=== PATIENT | male | born 1940 | race Caucasian/White ===

== ENCOUNTER 2022-12-13 11:10 | Inpatient (IN) | payer MEDICARE, BC, SELFPAY ==
[2022-12-13] VITALS (10 sets, daily range): BP systolic 92–113; BP diastolic 46–73; PULSE 62–82; RESP 18–20; TEMP 36.8–38.7; O2SAT 94–98; BMI 24.4
--- NOTE | 2022-12-13 11:49 | CRLHL7_ITS ---
For Patients: As a result of the Cures Act, medical imaging exams and procedure reports are released immediately into your electronic medical record. You may view this report before your referring provider. If you have questions, please contact your health care provider. Indication: PAIN AND SWELLING Technique: Right knee 3 views Comparison: None Findings: Prepatellar soft tissue swelling noted. No joint effusion. No fracture. Vascular calcifications. Mild degenerative changes. Impression: Prepatellar soft tissue swelling possibly representing bursitis. No fracture. No synovitis. Dictated by Michael Ascencio MD @ 12/13/2022 12:35:23 PM (Electronically Signed)
--- NOTE | 2022-12-13 11:50 | ED_ITS ---
HPI - General Adult General Chief complaint: Skin/Abscess/Foreign Body Stated complaint: right knee pain Time Seen by Provider: 12/13/22 11:38 Source: patient and family Mode of arrival: ambulatory Limitations: no limitations History of Present Illness HPI narrative: Michell 82-year-old male coming in today complaining of knee pain. He states that he bumped his knee several weeks ago and cut the skin. Has been healing appropriately, however, on Tuesday which is 3 days ago he started noticing increasing pain swelling and redness of the knee. He states that every now and then he gets the chills but he denies any fevers. No vomiting or changes in his appetite. No weakness. He denies pain inside the knee joint. He has been walking without significant difficulty. He denies pain in other joints. No immuno compromising medications. He is not on any blood thinners. Related Data Home Medications Medication Instructions Recorded Confirmed atorvastatin 20 mg tablet 20 mg PO QDAY 02/18/22 02/18/22 loperamide 2 mg capsule 2 mg PO Q6H PRN 02/18/22 02/18/22 losartan 25 mg tablet 25 mg PO QDAY 02/18/22 02/18/22 mometasone 50 mcg/actuation nasal 2 spray intranasal QDAY PRN 02/18/22 02/18/22 spray omeprazole 40 mg capsule,delayed 40 mg PO DAILY 02/18/22 02/18/22 release Allergies Allergy/AdvReac Type Severity Reaction Status Date / Time Penicillins Allergy HIVES Verified 02/18/22 16:06 iodine AdvReac Verified 02/18/22 16:06 Animal dander AdvReac Unknown Uncoded 02/18/22 16:06 [place] blue FCF AdvReac Unknown Uncoded 02/18/22 16:06 Review of Systems Status of ROS: Reports: 10 or more systems reviewed and unremarkable except as noted in History and below [facility] Surgical History History of repair of rotator cuff ?Z98.890 - Other specified postprocedural states (ICD-10) S/P atrial septal defect closure ?Z87.74 - Personal history of (corrected) congenital malformations of heart and circulatory system (ICD-10) History of inguinal hernia repair ?Z98.890 - Other specified postprocedural states (ICD-10) ?Z87.19 - Personal history of other diseases of the digestive system (ICD-10) Social History Smoking Status: Never smoker Do you use any of these nicotine containing products: None Second hand tobacco smoke exposure: No How often do you have a drink containing alcohol: never How often do you have six or more drinks on one occasion: Never AUDIT-C Alcohol total score: 0 Non-prescribed substance use: denies use service: No Exam Narrative: Exam Narrative: Well-nourished well-developed patient in no acute distress. Alert and oriented. Answers questions appropriately. Mood and affect are appropriate. Thoughts are goal oriented and rational. No tangential or magical thinking noted. Patient speaks in full sentences without needing to catch his breath. He does not appear ill or toxic. HEENT: Normocephalic atraumatic. Pupils are equally round reactive to light. Extraocular muscles are intact. Conjunctivae are moist without any icterus noted. Moist mucous membranes. Extremities: Bilateral lower extremities are without pitting edema. Normal DP and PT pulses. Red knee is erythematous and swollen. Does not appear to have a joint effusion. He has good range of motion with flexion extension of that same knee without significant discomfort. The skin is firm, erythematous and indurated consistent with cellulitis. He has a small scab in the center of the knees over the patella. Skin: Well perfused. Const: Vital Signs, click to edit/add: Vital Signs - 24 hr 12/13/22 11:17 12/13/22 13:12 12/13/22 13:13 Temperature 98.2 F Pulse Rate 70 Pulse Rate [Pulse Oximeter] 82 Respiratory Rate 20 Blood Pressure [Ri ght Upper Arm] 109/54 L 92/47 L Pulse Oximetry 97 96 Oxygen Delivery Me thod Room Air Course Course Hospital Course: Labs were drawn, knee x-ray was ordered. Differential diagnosis at this time include cellulitis, anserine bursitis, septic joint. Knee x-ray, read by me, does not show any joint effusion or evidence of osteomyelitis. Labs show slightly elevated white cell count, slightly elevated lactate, elevated CRP, low platelet count. Upon arrival patient's blood pressure was 109 systolic. Because of the slightly abnormal lab works and slightly low blood pressure did go ahead start him on IV fluids and IV Rocephin. Repeat blood pressure was 92/47. Did discuss with the patient what his blood pressures normal look like, he states that they usually 120 systolic at home. He was concerned that this patient is becoming septic given his lab abnormalities and low blood pressure, also given his age, I do recommend admission at this time. Patient in agreement. Vital Signs Vital signs: Initial Vital Signs Temperature 98.2 F 12/13/22 11:17 Temperature Source Temporal Artery Scan 12/13/22 11:17 Pulse Rate 82 12/13/22 11:17 Pulse Rhythm Regular 12/13/22 11:17 Respiratory Rate 20 12/13/22 11:17 Blood Pressure 109/54 L 12/13/22 11:17 Blood Pressure Mean 72 12/13/22 11:17 Blood Pressure Position Supine 12/13/22 11:17 Pulse Oximetry 97 12/13/22 11:17 Oxygen Delivery Method Room Air 12/13/22 11:17 Vital Signs Temperature 98.2 F 12/13/22 11:17 Pulse Rate 82 12/13/22 11:17 Respiratory Rate 20 12/13/22 11:17 Blood Pressure 109/54 L 12/13/22 11:17 Pulse Oximetry 97 12/13/22 11:17 Oxygen Delivery Method Room Air 12/13/22 11:17 Temperature 98.2 F 12/13/22 11:17 Pulse Rate 70 12/13/22 13:12 Respiratory Rate 20 12/13/22 11:17 Blood Pressure 92/47 L 12/13/22 13:13 Pulse Oximetry 96 12/13/22 13:12 Oxygen Delivery Method Room Air 12/13/22 11:17 Medical Decision Making [facility] Narrative Medical decision making narrative: 82-year-old male cellulitis of the right knee. Patient will be admitted for further management. Lab Data Lab results reviewed: Yes I reviewed the patient's lab results Labs: Lab Results 12/13/22 Range/Units 12:15 WBC 13.38 H (4.50-11.00) K/uL RBC 4.29 L (4.30-5.90) m/uL Hgb 12.8 L (13.5-17.5) gm/dL Hct 39.6 (37.0-53.0) % MCV 92 (80-100) fL MCH 30 (26-34) pg MCHC 32 (32-36) gm/dL RDW Coeff of [place] 12.8 (11.5-15.5) % Plt Count 129 L (140-440) K/uL Neut % (Auto) 85.9 H (42.0-72.0) % Lymph % (Auto) 5.5 L (20-44) % [place] % (Auto) 8.0 (0.0-11.0) % Eos % (Auto) 0.2 (0.0-7.0) % Baso % (Auto) 0.2 (0.0-3.0) % Neut # (Auto) 11.50 H (1.7-7.0) K/uL Lymph # (Auto) 0.70 L (0.90-2.90) K/uL [place] # (Auto) 1.10 H (0.00-0.90) K/UL Eos # (Auto) 0.00 (0.00-0.50) K/uL Baso # (Auto) 0.00 (0.00-0.30) K/uL Sodium 135 (135-149) mmol/L Potassium 3.5 L (3.6-5.1) mmol/L Chloride 99 (96-114) mmol/L Carbon Dioxide 26 (20-32) mmol/L BUN 16 (7-30) mg/dL Creatinine 1.0 (0.5-1.5) mg/dL Estimated Creat Clear 57.79 Estimated GFR 75 ml/min Glucose 146 H (60-115) mg/dL Lactate 2.2 H (0.5-1.9) mmol/L Calcium 8.4 (8.4-10.6) mg/dL Total Bilirubin 1.2 (0.1-1.5) mg/dL Direct Bilirubin 0.1 (0.0-0.5) mg/dL AST 24 (12-35) U/L ALT 21 (4-50) U/L Alkaline Phosphatase 53 (40-150) U/L C-Reactive Protein 6.5 H (0.5-1.0) mg/dL Total Protein 6.8 (6.0-8.3) g/dL Albumin 3.9 (3.3-5.0) g/dL Imaging Data X-ray knee: Attestation: I have reviewed the pertinent imaging results. Radiologist's impression: Right knee 3 views Comparison: None Findings: Prepatellar soft tissue swelling noted. No joint effusion. No fracture. Vascular calcifications. Mild degenerative changes. Impression: Prepatellar soft tissue swelling possibly representing bursitis. No fracture. No synovitis. Discharge Plan Discharge Clinical Impression: Cellulitis Patient Disposition: Admitted As Inpatient Condition: Stable Prescriptions: No Action omeprazole 40 mg capsule,delayed release(DR/EC) 40 mg PO DAILY losartan 25 mg tablet 25 mg PO QDAY mometasone 50 mcg/actuation spray,non-aerosol 2 spray intranasal QDAY PRN Rx Instructions: administer into each nostril loperamide 2 mg capsule 2 mg PO Q6H PRN atorvastatin 20 mg tablet 20 mg PO QDAY Follow Up/Referrals: Renate Feliciano MD [Primary Care Provider] -
[2022-12-13 12:20] LABS: Lactate* 2.2 mmol/L (0.5-1.9)
[2022-12-13 12:22] LABS: Basophils Percent Auto 0.2 % (0.0-3.0); Eosinophils Percent Auto 0.2 % (0.0-7.0); Hematocrit 39.6 % (37.0-53.0); Hemoglobin* 12.8 gm/dL (13.5-17.5); Immature Granulocytes Pct Auto 0.2 %; Lymphocytes Percent Auto 5.5 % (20-44); Mean Corpuscular HGB Conc 32 gm/dL (32-36); Mean Corpuscular Hemoglobin 30 pg (26-34); Mean Corpuscular Volume 92 fL (80-100); Neutrophils Percent Auto 85.9 % (42.0-72.0); Platelet Count* 129 K/uL (140-440); RDW Coefficient of Variation % 12.8 % (11.5-15.5); Red Blood Count 4.29 m/uL (4.30-5.90); White Blood Count* 13.38 K/uL (4.50-11.00)
[2022-12-13 12:26] LABS: Slide Review Reflex No
[2022-12-13 12:46] LABS: Albumin* 3.9 g/dL (3.3-5.0)
[2022-12-13 12:47] LABS: Chloride* 99 mmol/L (96-114); Potassium* 3.5 mmol/L (3.6-5.1); Sodium* 135 mmol/L (135-149)
[2022-12-13 12:49] LABS: Est. Creatinine Clearance* 57.79; Estimated Glomerular Filt Rate 75 ml/min
[2022-12-13 12:50] LABS: Alanine Aminotransferase* 21 U/L (4-50); Alkaline Phosphatase* 53 U/L (40-150); Aspartate Amino Transferase* 24 U/L (12-35); Bilirubin Direct* 0.1 mg/dL (0.0-0.5); Bilirubin Total* 1.2 mg/dL (0.1-1.5); Blood Urea Nitrogen* 16 mg/dL (7-30); Calcium* 8.4 mg/dL (8.4-10.6); Carbon Dioxide* 26 mmol/L (20-32); Glucose* 146 mg/dL (60-115); Total Protein* 6.8 g/dL (6.0-8.3)
[2022-12-13] MEDS: 0.9 % SODIUM CHLORIDE 1000 ml 1,000 ML IV ×2 (13:04→17:18)
[2022-12-13] MEDS: cefTRIAXone 1 GM in 0.9 % SODIUM CHLORIDE Mini-bag 100 ML IVPB (13:04)
[2022-12-13 13:28] LABS: C Reactive Protein* 6.5 mg/dL (0.5-1.0)
[2022-12-13] MEDS: BUPIVACAINE 0.25% 30 ML INJECTION (14:05)
--- NOTE | 2022-12-13 14:54 | P.IMHP_ITS ---
Hospitalist- H&P: HPI History of Present Illness Time Seen by Provider: 13:30 Date Seen: 12/13/22 Chief complaint: right knee pain Narrative: Salazar Noel is a 82 year old man presents to the emergency department for further assessment of right knee pain. Roughly 4 weeks ago he was working outdoors, cutting down brush, standing in stream, when he bumped his right knee into some brush. Sustained a cut with some bleeding. Cleaned it off. It stopped bleeding. He did not think much of it. Three days ago he noticed the onset of right knee pain, swelling, redness. Over the last 2 days he has had chills without fevers or rigors. Able to ambulate pending as knees without discomfort. Denies weakness, somnolence, change in thinking patterns. In the emergency department he is found to have relatively low blood pressure was systolic blood pressure of 90 mmHg. This is unusual for him. Usual systolic blood pressures run 120-140. On assessment he is thought to have a cellulitis involving the right knee, prepatellar area. Blood cultures obtained. White blood cell elevated at 13.4. Platelets 129. Lactate elevated at 2.2. He is referred to the hospitalist for admission to the hospital. Review of Systems Status of ROS: Reports: 10 or more systems reviewed and unremarkable except as noted in History and below Narrative: Denies fevers, rigors, diaphoresis. Acknowledges a sense of chills last couple of days. Denies other myalgias arthralgias. No other recent trauma or injury. No other recent travel. Denies chest heaviness, pressure, tightness, or pain. Denies dyspnea at rest, dyspnea with exertion, paroxysmal nocturnal dyspnea, orthopnea. Denies syncope or near-syncope. Denies lightheadedness, orthostasis, vertigo, dizziness. Denies nausea or vomiting. Bowel and bladder habits are satisfactory. [facility] Medical History (Updated 12/13/22 @ 15:08 by Isaiah Yin MD) Asthma ?J45.909 - Unspecified asthma, uncomplicated (ICD-10) Erectile dysfunction ?N52.9 - Male erectile dysfunction, unspecified (ICD-10) Trochanteric bursitis of left hip ?M70.62 - Trochanteric bursitis, left hip (ICD-10) Gastroesophageal reflux disease ?K21.9 - Gastro-esophageal reflux disease without esophagitis (ICD-10) Prediabetes ?R73.03 - Prediabetes (ICD-10) History of prostate cancer ?Z85.46 - Personal history of malignant neoplasm of prostate (ICD-10) Vocal cord dysfunction (05/29/12) ?J38.3 - Other diseases of vocal cords (ICD-10) Malignant neoplasm of prostate ?C61 - Malignant neoplasm of prostate (ICD-10) Irritable bowel syndrome ?K58.9 - Irritable bowel syndrome without diarrhea (ICD-10) Hyperlipidemia ?E78.5 - Hyperlipidemia, unspecified (ICD-10) Essential hypertension (05/29/12) ?I10 - Essential (primary) hypertension (ICD-10) 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) ?J31.0 - Chronic rhinitis (ICD-10) ?J32.9 - Chronic sinusitis, unspecified (ICD-10) Chronic cough (05/29/12) ?R05.3 - Chronic cough (ICD-10) Adenomatous polyp of colon ?D12.6 - Benign neoplasm of colon, unspecified (ICD-10) Surgical History History of repair of rotator cuff ?Z98.890 - Other specified postprocedural states (ICD-10) S/P atrial septal defect closure ?Z87.74 - Personal history of (corrected) congenital malformations of heart and circulatory system (ICD-10) History of inguinal hernia repair ?Z98.890 - Other specified postprocedural states (ICD-10) ?Z87.19 - Personal history of other diseases of the digestive system (ICD-10) Social History Smoking Status: Never smoker Do you use any of these nicotine containing products: None Second hand tobacco smoke exposure: No How often do you have a drink containing alcohol: never How often do you have six or more drinks on one occasion: Never AUDIT-C Alcohol total score: 0 Non-prescribed substance use: denies use service: No Meds Home Medications and Allergies Home Medications Medication Instructions Recorded Confirmed Type atorvastatin 20 mg tablet 20 mg PO HS 02/18/22 12/13/22 History omeprazole 40 mg capsule,delayed 40 mg PO DAILY 02/18/22 12/13/22 History release loperamide 2 mg capsule (Imodium 2 mg PO BID PRN 12/13/22 12/13/22 History A-D) losartan 100 1 tab PO DAILY 12/13/22 12/13/22 History mg-hydrochlorothiazide 12.5 mg tablet tamsulosin 0.4 mg capsule 0.4 mg PO QPM 12/13/22 12/13/22 History Allergies Allergy/AdvReac Type Severity Reaction Status Date / Time Penicillins Allergy HIVES Verified 02/18/22 16:06 iodine AdvReac Verified 02/18/22 16:06 Animal dander AdvReac Unknown Uncoded 02/18/22 16:06 [place] blue FCF AdvReac Unknown Uncoded 02/18/22 16:06 Exam Narrative: Exam Narrative: I assessed him in the emergency department while he is laying on exam table. He appears comfortable and in no acute distress. Alert, oriented to self, place, time, situation. Friendly, cooperative, articulate. Thoughtful. Mood and affect are congruent. Vision and hearing are grossly normal. Tympanic membranes are normal. Midline nasal septum. Dentition in fair repair. Moist buccal mucosa. No icterus or conjunctival injection. Pupils equally round and reactive to lig ht and accommodation. Extraocular muscles are intact. Neck is supple. Midline trachea. No adenopathy in the head and neck region. Lungs are clear to auscultation without wheezing, rhonchi, or rales. Chest wall excursions are full. No CVA tenderness. No pain to thumping over the spine in the back. Abdomen with active bowel sounds, soft, nontender. No rebound or guarding. Able to transfer independently. Ambulates independently. Full range of motion of the right and left knee. No focal motor neurologic deficits. Left knee appears normal. Right knee is red, swollen, warm to touch. Has fluctuance in the subpatellar area. Const: Vital Signs, click to edit/add: Vital Signs - 24 hr 12/13/22 11:17 12/13/22 13:12 12/13/22 13:13 Temperature 98.2 F Pulse Rate 70 Pulse Rate [Pulse Oximeter] 82 Respiratory Rate 20 Blood Pressure [Ri ght Upper Arm] 109/54 L 92/47 L Pulse Oximetry 97 96 Oxygen Delivery Me thod Room Air Documenting provider has reviewed patient's vital signs: yes Hospitalist - H&P: Result Labs Labs: Short CBC 12/13/22 Range/Units 12:15 WBC 13.38 H (4.50-11.00) K/uL Hgb 12.8 L (13.5-17.5) gm/dL Hct 39.6 (37.0-53.0) % Plt Count 129 L (140-440) K/uL BMP 12/13/22 12:15 Sodium 135 Potassium 3.5 L Chloride 99 Carbon Dioxide 26 BUN 16 Creatinine 1.0 Glucose 146 H Calcium 8.4 Liver Function 12/13/22 Range/Units 12:15 Total Bilirubin 1.2 (0.1-1.5) mg/dL Direct Bilirubin 0.1 (0.0-0.5) mg/dL AST 24 (12-35) U/L ALT 21 (4-50) U/L Alkaline Phosphatase 53 (40-150) U/L Albumin 3.9 (3.3-5.0) g/dL Imaging Knee x-ray: Attestation: I have reviewed the pertinent imaging results. Radiologist's impression: Prepatellar soft tissue swelling possibly representing bursitis. No fracture. No synovitis. Assessment and Plan Assessment and plan (1) Sepsis associated hypotension: Status: Acute (2) Cellulitis: Problem comment: Right knee Status: Acute (3) Knee bursitis: Problem comment: right knee Status: Acute Plan 1. Reviewed with patient and . 2. Recommended admission to the hospital. 3. IV fluids. Monitor lactate. 4. Blood cultures obtained. Synovial fluid culture obtained from right knee subpatellar area. Will start on cefazolin 2 g IV q.8 for now. Consider broadening antibiotic coverage by adding vancomycin if spikes through. Otherwise await results of cultures. 5. Analgesics p.r.n. 6. Consider orthopedic surgery consultation. 7. Continue with other supportive efforts. 8. Hold anti hypertensive medications for now. 9. Monitor labs including inflammatory markers. 10. Venous thromboembolism prophylaxis. 11. Patient and agreeable to above stated plans and recommendations. Procedures Bursa Procedures Site of procedure: prepatellar bursa XRAY obtained: normal Antisepsis used: Chlorhexidine Local anesthetic used: bupivacaine 0.25% Amount of anesthesia used (ml): 1 Fluid obtained (ml): 1 Fluid type: clear and bloody Patient tolerated procedure: well and no complications Complications: none Additional comments: After obtaining verbal consent from the patient and his , I proceeded with the procedure. Areas prepped in usual sterile fashion. After achieving local anesthesia by injection with 1 mL of 0.25% bupivacaine, I use a 10 mL syringe with an 16 gauge needle and aspirate 0.25 mL of the viscus blood-tinged fluid. Unable to aspirate any more. This is submitted to our laboratory for culture.
[2022-12-13] MEDS: CEFAZOLIN 2 GM in 0.9 % SODIUM CHLORIDE Mini-bag 100 ML IVPB (15:55)
[2022-12-13] MEDS: ACETAMINOPHEN 325 MG TABLET 650 MG PO (18:39)
[2022-12-13] MEDS: 0.9 % SODIUM CHLORIDE 1000 ml 1,000 ML 125 ML IV (18:42)
--- NOTE | 2022-12-13 18:50 | W.PM.CROSSCO ---
Subjective Subjective Interval history: patient febrile; will check lactate and start vancomycin
--- NOTE | 2022-12-13 19:02 | PC.NURSE ---
Pt was admitted this afternoon to the unit due to R knee pain, erythema, and warmth. Pt reports a 2/10 pain in knee w/ movement and activity. SBA to bathroom. VS on RA, mild fever of 99.1. Ancef and 1000 ml/hr bolus ran per orders. Normal saline now running at 125ml/hr. @1830 VS were rechecked 101.[address] Ribeiro notifed, and he ordered Vanco which is awaiting verification from pharmacy, well as a repeat stat lactate. Calls appropriately.
[2022-12-13] MEDS: ENOXAPARIN 40 MG/0.4 ML INJ SUBCUT (21:07)
[2022-12-13] MEDS: SODIUM CHLORIDE 0.9 % (FLUSH) 10 ML SYRINGE 5 ML IVF (21:07)
[2022-12-13] MEDS: ATORVASTATIN 10 MG TABLET 20 MG PO (21:08)
[2022-12-13] MEDS: SODIUM CHLORIDE NASAL SPRAY 1 SPRAY NOSTRIL-B (22:06)
[2022-12-14] VITALS (11 sets, daily range): BP systolic 93–116; BP diastolic 49–66; PULSE 57–71; RESP 18–22; TEMP 36.7–38.3; O2SAT 94–96
[2022-12-14] MEDS: ALBUMIN HUMAN 25% 25 GM/100 ML VIAL IVPB ×2 (00:40→16:52)
[2022-12-14] MEDS: 0.9 % SODIUM CHLORIDE 1000 ml 1,000 ML IV ×2 (02:11→15:45)
[2022-12-14] MEDS: CEFAZOLIN 2 GM in 0.9 % SODIUM CHLORIDE Mini-bag 100 ML IVPB ×3 (03:57→19:48)
[2022-12-14] MEDS: ACETAMINOPHEN 325 MG TABLET 650 MG PO ×2 (04:06→16:55)
[2022-12-14] MEDS: OMEPRAZOLE 20 MG CAPSULE DR 40 MG PO (06:32)
--- NOTE | 2022-12-14 06:48 | PC.NURSE ---
Pt is pleasant and cooperative. VSS at this time after get albumin and a 1000cc bolus. He did run a low grade temp around 3. T-100.6 Tylenol given and temp done to 98.6 at this time. He is up I. Left leg is red swollen and hot to the touch. He states minimal pain at this time.
[2022-12-14 07:14] LABS: Lactate* 0.9 mmol/L (0.5-1.9)
[2022-12-14 07:19] LABS: Basophils Absolute Auto 0.04 K/uL (0.00-0.30); Basophils Percent Auto 0.5 % (0.0-3.0); Eosinophils Percent Auto 2.3 % (0.0-7.0); Hematocrit 32.4 % (37.0-53.0); Hemoglobin* 10.6 gm/dL (13.5-17.5); Immature Granulocytes Abs Auto 0.02 K/uL (0.00-0.30); Immature Granulocytes Pct Auto 0.2 %; Lymphocytes Percent Auto 13.1 % (20-44); Mean Corpuscular HGB Conc 33 gm/dL (32-36); Mean Corpuscular Hemoglobin 31 pg (26-34); Mean Corpuscular Volume 94 fL (80-100); Monocytes Percent Auto 10.5 % (0.0-11.0); Neutrophils Percent Auto 73.4 % (42.0-72.0); Platelet Count* 115 K/uL (140-440); RDW Coefficient of Variation % 13.1 % (11.5-15.5); Red Blood Count 3.44 m/uL (4.30-5.90); White Blood Count* 8.56 K/uL (4.50-11.00)
[2022-12-14 07:36] LABS: Slide Review Reflex No
[2022-12-14 07:59] LABS: Chloride* 106 mmol/L (96-114); Potassium* 3.9 mmol/L (3.6-5.1); Sodium* 138 mmol/L (135-149)
[2022-12-14 08:01] LABS: Creatinine* 0.9 mg/dL (0.5-1.5); Est. Creatinine Clearance* 57.79; Estimated Glomerular Filt Rate 85 ml/min
[2022-12-14 08:02] LABS: Blood Urea Nitrogen* 15 mg/dL (7-30); Carbon Dioxide* 24 mmol/L (20-32); Glucose* 107 mg/dL (60-115)
[2022-12-14 08:03] LABS: Calcium* 7.3 mg/dL (8.4-10.6)
[2022-12-14 08:26] LABS: C Reactive Protein* 16.4 mg/dL (0.5-1.0)
[2022-12-14 08:29] LABS: Erythrocyte SedimentationRate* 16 mm/hr (2-15)
[2022-12-14 11:16] LABS: Hemoglobin* 10.6 gm/dL (13.5-17.5); Mean Corpuscular HGB Conc 32 gm/dL (32-36); Mean Corpuscular Hemoglobin 30 pg (26-34); Mean Corpuscular Volume 94 fL (80-100); Platelet Count* 107 K/uL (140-440); Red Blood Count 3.52 m/uL (4.30-5.90); White Blood Count* 8.84 K/uL (4.50-11.00)
--- NOTE | 2022-12-14 11:16 | PM.IMPN1 ---
Progress Note: A&P Assessment and plan (1) Sepsis associated hypotension: Problem details: anti-HTN meds on hold Status: Acute (2) Knee bursitis: Problem details: right knee. 12/13/2022 sample growing Gram-positive cocci in clusters. Presently on IV cefazolin and IV vancomycin, pending organism identification and sensitivities. Consider orthopedic surgery consultation. Status: Acute (3) Cellulitis: Problem details: Right knee Status: Acute (4) Thrombocytopenia: Problem details: At least in part related to acute infection and right knee Status: Acute (5) Anemia: Status: Acute Plan 1. Reviewed my impression with the patient 2. Continue with IV cefazolin and IV vancomycin pending organism identification and sensitivities. 3. Continue to monitor labs. 4. Answered patient's questions to satisfaction. 5. Consider orthopedic surgery consultation if warranted. Time Spent With Patient Total time spent: 30 minute Subjective Time Seen by Provider: 09:00 Date Seen: 12/14/22 Interval history: Admission date 01/02/2023. Hospital day 2. 82 year old man presented to our emergency department for further assessment of right knee pain.? Roughly 4 weeks ago he was working outdoors, cutting down brush, standing in stream, when he bumped his right knee into some brush.? Sustained a cut with some bleeding.? Cleaned it off.? It stopped bleeding.? He did not think much of it.? Three days ago he noticed the onset of right knee pain, swelling, redness.? Over the last 2 days he has had chills without fevers or rigors.? Able to weightbear, ambulate, and bend his knees without discomfort.? Denies weakness, somnolence, change in thinking patterns. In the emergency department he has unusually low blood pressures for him with systolic blood pressure of 90 mmHg.? Usual systolic blood pressures run 120-140.? On assessment he is? thought to have a cellulitis involving the right knee, prepatellar area.? Blood cultures obtained.? White blood cell elevated at 13.4.? Platelets 129.? Lactate elevated at 2.2.? On my assessment in the emergency department he has fluctuance in the subpatellar region. I am able to aspirate a small amount of fluid from this bursa under aseptic technique and forward it to the lab for culturing. He indicates he has only minimal discomfort in the knee, no different than yesterday. It does not become worse or better with bending his knee or weight-bearing or ambulating. Did spike a fever last night with a T-max of 101.6? F. He is afebrile this morning. Tolerating it IV cefazolin. When he has spiked his fever yesterday we added IV vancomycin to his regimen. Exam Narrative: Exam Narrative: Appears comfortable and in no acute distress. Vision and hearing are grossly normal. Systolic blood pressures are in the 1 teens now, much improved from 90 yesterday. Alert, oriented to self, place, time, situation. Friendly, articulate, cooperative. Mood and affect are congruent. Lungs clear to auscultation. Heart tones with regular rhythm. Abdomen with active bowel sounds, soft, nontender. Independent in transfer, station, gait. Can fully extend his right knee and can bend his right knee without discomfort. Right knee is still warm to touch and erythematous. Less swelling of the knee, with skin markings now visible. Gram stain of organisms growing from the synovial fluid demonstrates gram positive cocci in clusters. ID and sensitivities are pending. Const: Vital Signs, click to edit/add: Vital Signs - 24 hr 12/13/22 11:17 12/13/22 13:12 12/13/22 13:13 Temperature 98.2 F Pulse Rate 70 Pulse Rate [Pulse Oximeter] 82 Pulse Rate [Right Pulse Oximeter] Respiratory Rate 20 Blood Pressure [Le ft Arm] Blood Pressure [Ri ght Upper Arm] 109/54 L 92/47 L Pulse Oximetry 97 96 Oxygen Delivery Me thod Room Air 12/13/22 14:50 12/13/22 16:07 12/13/22 17:00 Temperature 99.4 F Pulse Rate Pulse Rate [Pulse Oximeter] Pulse Rate [Right Pulse Oximeter] 82 Respiratory Rate 18 18 Blood Pressure [Le ft Arm] 106/73 Blood Pressure [Ri ght Upper Arm] Pulse Oximetry 98 Oxygen Delivery Me thod Room Air Room Air Room Air 12/13/22 18:27 12/13/22 18:39 12/13/22 19:00 Temperature 101.6 F H 101.6 F H 99.7 F H Pulse Rate Pulse Rate [Pulse Oximeter] Pulse Rate [Right Pulse Oximeter] 71 64 Respiratory Rate 18 18 Blood Pressure [Le ft Arm] 113/52 L 99/46 L Blood Pressure [Ri ght Upper Arm] Pulse Oximetry 94 95 Oxygen Delivery Me thod Room Air Room Air 12/13/22 21:09 12/13/22 23:45 12/13/22 23:45 Temperature 99.6 F 99.8 F H Pulse Rate Pulse Rate [Pulse Oximeter] Pulse Rate [Right Pulse Oximeter] 62 Respiratory Rate 18 18 Blood Pressure [Le ft Arm] 106/56 L Blood Pressure [Ri ght Upper Arm] Pulse Oximetry 95 95 Oxygen Delivery Me thod Room Air Room Air 12/14/22 04:06 12/14/22 04:20 12/14/22 06:33 Temperature 100.6 F H 100.6 F H 98.6 F Pulse Rate Pulse Rate [Pulse Oximeter] Pulse Rate [Right Pulse Oximeter] 65 Respiratory Rate 18 Blood Pressure [Le ft Arm] 114/58 L Blood Pressure [Ri ght Upper Arm] Pulse Oximetry 94 Oxygen Delivery La thod Room Air 12/14/22 07:45 12/14/22 07:45 12/14/22 07:45 Temperature 98.3 F Pulse Rate Pulse Rate [Pulse Oximeter] Pulse Rate [Right Pulse Oximeter] 71 71 Respiratory Rate 18 18 18 Blood Pressure [Le ft Arm] 116/53 L Blood Pressure [Ri ght Upper Arm] Pulse Oximetry 94 94 Oxygen Delivery Me thod Room Air Room Air Documenting provider has reviewed patient's vital signs: yes Labs Labs: Laboratory Results - last 24 hr 12/13/22 12/13/22 12/14/22 12:15 18:56 05:54 WBC 13.38 H 8.56 RBC 4.29 L 3.44 L Hgb 12.8 L 10.6 L Hct 39.6 32.4 L MCV 92 94 MCH 30 31 MCHC 32 33 RDW Coeff of Denisse 12.8 13.1 Plt Count 129 L 115 L Neut % (Auto) 85.9 H 73.4 H Lymph % (Auto) 5.5 L 13.1 L Winston % (Auto) 8.0 10.5 Eos % (Auto) 0.2 2.3 Baso % (Auto) 0.2 0.5 Neut # (Auto) 11.50 H 6.30 Lymph # (Auto) 0.70 L 1.10 Winston # (Auto) 1.10 H 0.90 Eos # (Auto) 0.00 0.20 Baso # (Auto) 0.00 0.04 ESR 16 H Sodium 135 138 Potassium 3.5 L 3.9 Chloride 99 106 Carbon Dioxide 26 24 BUN 16 15 Creatinine 1.0 0.9 Estimated Creat Clear 57.79 57.79 Estimated GFR 75 85 Glucose 146 H 107 Lactate 2.2 H 0.9 Calcium 8.4 7.3 L Total Bilirubin 1.2 Direct Bilirubin 0.1 AST 24 ALT 21 Alkaline Phosphatase 53 Lactate Baseline 1.0 C-Reactive Protein 6.5 H 16.4 H Total Protein 6.8 Albumin 3.9
[2022-12-14 11:20] LABS: Slide Review Reflex No
[2022-12-14 11:55] LABS: C Reactive Protein* 17.6 mg/dL (0.5-1.0)
[2022-12-14] MEDS: guaiFENesin 100 MG/ML CUP PO (18:12)
--- NOTE | 2022-12-14 18:46 | PC.NURSE ---
PATIENT HAD BEEN AFEBRILE AND VITALLY STABLE ON DAY SHIFT BUT AT 1530, BP NOTED TO BE 93/47. PATIENT DENIED FEELING DIZZY OR LIGHTHEADED. DR. BAKER UPDATED AND ORDER GIVEN FOR NORMAL SALINE 1L BOLUS FOLLOW BY ALBUMIN. PATIENT TOLERATED WELL AND BP DID INCREASE TO 116/49. AT 1745, PATIENT REPORTED FEELING COLD AND TEMP CHECK AT THAT TIME WAS 100.9. TYLENOL ADMINISTERED AND TEMP CURRENTLY 99.9. BP AT 1810 WAS 105/63. PATIENT'S KNEE CONTINUES TO BE REDDENED AND HOT TO TOUCH. AREA OUTLINED. REPORTS NO PAIN TO KNEE AT REST.
[2022-12-14] MEDS: ENOXAPARIN 40 MG/0.4 ML INJ SUBCUT (20:45)
[2022-12-14] MEDS: TAMSULOSIN HCL 0.4 MG CAPSULE PO (20:45)
[2022-12-14] MEDS: ATORVASTATIN 10 MG TABLET 20 MG PO (20:45)
[2022-12-14] MEDS: SODIUM CHLORIDE 0.9 % (FLUSH) 10 ML SYRINGE 5 ML IVF (20:46)
[2022-12-15] VITALS (26 sets, daily range): BP systolic 90–143; BP diastolic 51–88; PULSE 51–75; RESP 14–20; TEMP 35.7–37.4; O2SAT 91–99
[2022-12-15] MEDS: CEFAZOLIN 2 GM in 0.9 % SODIUM CHLORIDE Mini-bag 100 ML IVPB ×2 (04:00→19:23)
[2022-12-15] MEDS: SODIUM CHLORIDE NASAL SPRAY 1 SPRAY NOSTRIL-B (04:05)
[2022-12-15] MEDS: OMEPRAZOLE 20 MG CAPSULE DR 40 MG PO (06:29)
--- NOTE | 2022-12-15 06:52 | PC.NURSE ---
Pleasant and cooperative. Up independantly in his room. He is saline locked, Encouraged drink more as urine was concentrated. Minimal pain per pt. Slightly less swelling noted left knee. Decreased warmth and redness.
[2022-12-15] MEDS: LACTATED RINGERS 1000 ML 1,000 ML 125 ML IV (11:18)
[2022-12-15] MEDS: SODIUM CHLORIDE 0.9 % (FLUSH) 10 ML SYRINGE 5 ML IVF ×2 (11:18→20:48)
[2022-12-15 11:29] LABS: Hematocrit 34.1 % (37.0-53.0); Hemoglobin* 10.8 gm/dL (13.5-17.5); Mean Corpuscular HGB Conc 32 gm/dL (32-36); Mean Corpuscular Hemoglobin 30 pg (26-34); Mean Corpuscular Volume 95 fL (80-100); Platelet Count* 113 K/uL (140-440); Red Blood Count 3.61 m/uL (4.30-5.90); Slide Review Reflex No
[2022-12-15 12:19] LABS: C Reactive Protein* 15.4 mg/dL (0.5-1.0)
[2022-12-15] MEDS: LACTATED RINGERS 1000 ML 1,000 ML 35 ML IV (12:19)
--- NOTE | 2022-12-15 12:20 | PM.ORCN ---
History of Present Illness HPI Date Seen: 12/15/22 Requesting physician: Isaiah Yin Chief complaint: right knee pain Narrative: The patient is an 82-year-old gentleman who bumped his knee about a month ago while standing in a stream, helping his neighbor clear brush. This injury broke the skin, but was not concerning to him. However, on Tuesday this week the front of his knee became swollen and painful. He was admitted for septic prepatellar bursitis. This has improved on IV antibiotics. He has never injured this knee or had surgery on it previously. He does not have diabetes or smoke cigarettes. Review of Systems Narrative: The patient denies: Fever, night sweats, shaking chills, nausea, vomiting, diarrhea, chest pain, chest pressure, shortness of breath, no rash, no change in hearing or vision, no issues with bleeding or clotting [facility] Medical History Asthma ?J45.909 - Unspecified asthma, uncomplicated (ICD-10) Erectile dysfunction ?N52.9 - Male erectile dysfunction, unspecified (ICD-10) Trochanteric bursitis of left hip ?M70.62 - Trochanteric bursitis, left hip (ICD-10) Gastroesophageal reflux disease ?K21.9 - Gastro-esophageal reflux disease without esophagitis (ICD-10) Prediabetes ?R73.03 - Prediabetes (ICD-10) History of prostate cancer ?Z85.46 - Personal history of malignant neoplasm of prostate (ICD-10) Vocal cord dysfunction (05/29/12) ?J38.3 - Other diseases of vocal cords (ICD-10) Malignant neoplasm of prostate ?C61 - Malignant neoplasm of prostate (ICD-10) Irritable bowel syndrome ?K58.9 - Irritable bowel syndrome without diarrhea (ICD-10) Hyperlipidemia ?E78.5 - Hyperlipidemia, unspecified (ICD-10) Essential hypertension (05/29/12) ?I10 - Essential (primary) hypertension (ICD-10) 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) ?J31.0 - Chronic rhinitis (ICD-10) ?J32.9 - Chronic sinusitis, unspecified (ICD-10) Chronic cough (05/29/12) ?R05.3 - Chronic cough (ICD-10) Adenomatous polyp of colon ?D12.6 - Benign neoplasm of colon, unspecified (ICD-10) Surgical History History of repair of rotator cuff ?Z98.890 - Other specified postprocedural states (ICD-10) S/P atrial septal defect closure ?Z87.74 - Personal history of (corrected) congenital malformations of heart and circulatory system (ICD-10) History of inguinal hernia repair ?Z98.890 - Other specified postprocedural states (ICD-10) ?Z87.19 - Personal history of other diseases of the digestive system (ICD-10) Family History Brother Myocardial infarction Brother Myocardial infarction Sister Asthma Social History What is your current living situation?: I presently have a place to live Problems where you live: no known problems Problems where you live details: Pt states no In the past 12 months, utilities in danger of being shut off: no In the past 12 mos, have been you worried that your food would run out before you had money to buy more?: never true In the past 12 mos, the food you bought just didn't last and you didn't have money to buy more?: never true Highest level of school completed/degree received: Bachelor's degree Smoking Status: Never smoker Do you use any of these nicotine containing products: None Second hand tobacco smoke exposure: No How often do you have a drink containing alcohol: never How often do you have six or more drinks on one occasion: Never AUDIT-C Alcohol total score: 0 Non-prescribed substance use: denies use Non-prescribed substance use details: None Caffeine: Yes (1 cup coffee a day) How often does anyone, including family, friends and others, physically hurt you: never How often does anyone, including family, friends and others, insult or talk down to you: never How often does anyone, including family, friends and others, threaten you with harm: never How often does anyone, including family, friends and others, scream or curse at you: never service: No Meds Home Medications and Allergies Home Medications Medication Instructions Recorded Confirmed Type atorvastatin 20 mg tablet 20 mg PO HS 02/18/22 12/13/22 History omeprazole 40 mg capsule,delayed 40 mg PO DAILY 02/18/22 12/13/22 History release loperamide 2 mg capsule (Imodium 2 mg PO BID PRN 12/13/22 12/13/22 History A-D) losartan 100 1 tab PO DAILY 12/13/22 12/13/22 History mg-hydrochlorothiazide 12.5 mg tablet tamsulosin 0.4 mg capsule 0.4 mg PO QPM 12/13/22 12/13/22 History Allergies Allergy/AdvReac Type Severity Reaction Status Date / Time Penicillins Allergy HIVES Verified 02/18/22 16:06 iodine AdvReac Verified 02/18/22 16:06 Animal dander AdvReac Unknown Uncoded 02/18/22 16:06 [place] blue FCF AdvReac Unknown Uncoded 02/18/22 16:06 Ortho Exam Narrative Exam Narrative: The patient is examined upright in his hospital bed. The right knee shows the prepatellar bursa is swollen, erythematous and tender. There is a healed puncture site over the center of the bursa, without drainage. The entire leg is warm to touch. Knee range of motion is from 0-90 degrees. CMS to the foot is normal. Const Vital Signs, click to edit/add: Vital Signs - 24 hr 12/14/22 15:30 12/14/22 15:30 12/14/22 15:30 Temperature 98.1 F Pulse Rate [Right Pulse Oximeter] 66 66 Respiratory Rate 18 18 18 Blood Pressure [Left Arm] 93/66 Pulse Oximetry 96 96 Oxygen Delivery Method Room Air Room Air 12/14/22 16:45 12/14/22 16:55 12/14/22 18:10 Temperature 100.9 F H 100.9 F H 99.9 F H Pulse Rate [Right Pulse Oximeter] 66 69 Respiratory Rate 18 18 Blood Pressure [Left Arm] 116/49 L 105/63 Pulse Oximetry 96 96 Oxygen Delivery Method Room Air Room Air 12/14/22 18:26 12/14/22 19:00 12/15/22 00:01 Temperature 99.9 F H 99.4 F 99.4 F Pulse Rate [Right Pulse Oximeter] 67 69 Respiratory Rate 22 18 Blood Pressure [Left Arm] 109/50 L 121/64 Pulse Oximetry 94 92 Oxygen Delivery Method Room Air Room Air 12/15/22 00:45 12/15/22 04:07 12/15/22 07:00 Temperature 99.4 F Pulse Rate [Right Pulse Oximeter] 68 Respiratory Rate 20 Blood Pressure [Left Arm] 120/61 Pulse Oximetry 92 94 97 Oxygen Delivery Method Room Air Room Air Room Air 12/15/22 07:00 12/15/22 07:56 Temperature 97.4 F L Pulse Rate [Right Pulse Oximeter] 72 72 Respiratory Rate 20 20 Blood Pressure [Left Arm] 104/82 Pulse Oximetry 97 Oxygen Delivery Method Room Air Results Labs Labs: Laboratory Results - last 48 hr 12/13/22 12/13/22 12/14/22 12:15 18:56 05:54 WBC 13.38 H 8.56 RBC 4.29 L 3.44 L Hgb 12.8 L 10.6 L Hct 39.6 32.4 L MCV 92 94 MCH 30 31 MCHC 32 33 RDW Coeff of Denisse 12.8 13.1 Plt Count 129 L 115 L Neut % (Auto) 85.9 H 73.4 H Lymph % (Auto) 5.5 L 13.1 L Dawson % (Auto) 8.0 10.5 Eos % (Auto) 0.2 2.3 Baso % (Auto) 0.2 0.5 Neut # (Auto) 11.50 H 6.30 Lymph # (Auto) 0.70 L 1.10 Dawson # (Auto) 1.10 H 0.90 Eos # (Auto) 0.00 0.20 Baso # (Auto) 0.00 0.04 ESR 16 H Sodium 135 138 Potassium 3.5 L 3.9 Chloride 99 106 Carbon Dioxide 26 24 BUN 16 15 Creatinine 1.0 0.9 Estimated Creat Clear 57.79 57.79 Estimated GFR 75 85 Glucose 146 H 107 Lactate 2.2 H 0.9 Calcium 8.4 7.3 L Total Bilirubin 1.2 Direct Bilirubin 0.1 AST 24 ALT 21 Alkaline Phosphatase 53 Lactate Baseline 1.0 C-Reactive Protein 6.5 H 16.4 H Total Protein 6.8 Albumin 3.9 12/14/22 12/15/22 11:11 11:20 WBC 8.84 10.70 RBC 3.52 L 3.61 L Hgb 10.6 L 10.8 L Hct 33.0 L 34.1 L MCV 94 95 MCH 30 30 MCHC 32 32 RDW Coeff of Denisse Plt Count 107 L 113 L Neut % (Auto) Lymph % (Auto) Dawson % (Auto) Eos % (Auto) Baso % (Auto) Neut # (Auto) Lymph # (Auto) Dawson # (Auto) Eos # (Auto) Baso # (Auto) ESR Sodium Potassium Chloride Carbon Dioxide BUN Creatinine Estimated Creat Clear Estimated GFR Glucose Lactate Calcium Total Bilirubin Direct Bilirubin AST ALT Alkaline Phosphatase Lactate Baseline C-Reactive Protein 17.6 H 15.4 H Total Protein Albumin Diagnostic results Additional Comments: AP, lateral and a single patellofemoral axial view of the right knee show prepatellar soft tissue swelling. There is no significant degenerative change. There is no obvious fracture or retained foreign body. Assessment and Plan Assessment and plan (1) Sepsis associated hypotension: Problem comment: anti-HTN meds on hold Status: Acute Total time spent: Total time spent is greater than 50% in coordination of care (as documented) at patient's floor/unit and/or counseling patient: (2) Knee bursitis: Problem comment: right knee. 12/13/2022 sample growing Gram-positive cocci in clusters. Presently on IV cefazolin and IV vancomycin, pending organism identification and sensitivities. Consider orthopedic surgery consultation. Status: Acute Total time spent: Total time spent is greater than 50% in coordination of care (as documented) at patient's floor/unit and/or counseling patient: (3) Cellulitis: Problem comment: Right knee Status: Acute Total time spent: Total time spent is greater than 50% in coordination of care (as documented) at patient's floor/unit and/or counseling patient: (4) Thrombocytopenia: Problem comment: At least in part related to acute infection and right knee Status: Acute Total time spent: Total time spent is greater than 50% in coordination of care (as documented) at patient's floor/unit and/or counseling patient: (5) Anemia: Status: Acute Total time spent: Total time spent is greater than 50% in coordination of care (as documented) at patient's floor/unit and/or counseling patient: Plan Assessment: Septic prepatellar bursitis, MSSA Plan: I told the patient and his that this problem is best treated with incision and drainage. I told him that this will most quickly allow us to get control of the infection and get him back to activity. He agrees and wishes to proceed.
--- NOTE | 2022-12-15 13:21 | P.ORPRC_ITS ---
Procedure Note Date of procedure: 12/15/22 Procedure: PREOPERATIVE DIAGNOSIS: Right knee septic prepatellar bursitis POSTOPERATIVE DIAGNOSIS: Right knee septic prepatellar bursitis NAME OF OPERATION: Right knee septic prepatellar bursa irrigation and debridement of skin and bursa SURGEON: Noe Rios MD INSTRUCTIONAL SYSTEMS DESIGN CONSULTANT: Julio Cesar Bernard PA-C ANESTHESIA: Spinal ESTIMATED BLOOD LOSS: 20 mL COMPLICATIONS: None SPECIMENS: Sent for Gram stain aerobic and anaerobic cultures DRAINS: None PREOPERATIVE ANTIBIOTICS: Ancef 2 gram INDICATIONS: The patient is a 82-year-old with a history of right knee anterior pain and swelling. He has been diagnosed with methicillin sensitive Staph aureus septic prepatellar bursitis. Operative intervention was recommended. The risks, benefits and expected outcomes were discussed in detail. These included but were not limited to: Infection, bleeding, injury to blood vessel or nerve, venous thromboembolism. All questions were answered to their satisfaction. PROCEDURE: Spinal anesthesia was administered. The patient was placed supine on the operating room table. The right lower extremity was prepped and draped in the usual sterile fashion. The limb was elevated and the pneumatic tourniquet was inflated to 300 mmHg. A standard, longitudinal incision over the anterior aspect of the patella was made. Deep dissection was taken sharply through the prepatellar bursa to the periosteum of the patella. Gross purulence was encountered. Cultures were obtained. The leading edge of the skin and the prepatellar bursa were aggressively debrided with the scalpel, rongeur and curette. The wound was irrigated with 3 L of normal saline via pulse lavage. The subcutaneous tissues were sutured to the periosteum with a 0 Vicryl suture in an interrupted fashion. Nylon was used to loosely close the skin. Soft tissues were infiltrated with 0.25% Marcaine, without epinephrine. The tourniquet was released. A Mepilex and knee immobilizer were applied. Sponge and needle counts were correct x2. The patient tolerated the procedure well. There were no apparent complications. They were carefully transferred to the hospital bed and taken to the postanesthesia care unit in satisfactory condition. PLAN: The patient will be discharged to home. They may weightbear as tolerates. We will have him use the knee immobilizer for the next 1-2 weeks, until the wound is fully healed. They will follow up in the office next week for a wound check.
[2022-12-15] MEDS: BUPIVACAINE 0.5% 30 ML INJECTION (13:40)
[2022-12-15] MEDS: LIDOCAINE 1 % PF 30 ML INJECTION (13:40)
--- NOTE | 2022-12-15 13:51 | P.ANES_ITS ---
Anesthesia Charges Start Date/Time Anesthesia Start Date: 12/15/22 Anesthesia Start Time: 12:19 Stop Date/Time Anesthesia Stop Date: 12/15/22 Anesthesia Stop Time: 13:55 Summary Emergency: INFORMATION SECURITY ARCHITECT Extremes of Age - Over 70 or under 1: INFORMATION SECURITY ARCHITECT
--- NOTE | 2022-12-15 13:51 | W.ANESCHARGE ---
Anesthesia Charges Start Date/Time Anesthesia Start Date: 12/15/22 Anesthesia Start Time: 12:19 Stop Date/Time Anesthesia Stop Date: 12/15/22 Anesthesia Stop Time: 13:55 Summary Emergency: HORSES OR MULES TEAMSTER Extremes of Age - Over 70 or under 1: HORSES OR MULES TEAMSTER
--- NOTE | 2022-12-15 14:09 | PM.IMPN1 ---
Progress Note: A&P Assessment and plan (1) Septic prepatellar bursitis of right knee: Problem details: Growing MSSA. Dr. Rios will take patient to the OR for washout. Continue cefazolin. Status: Acute (2) Sepsis associated hypotension: Problem details: anti-HTN meds on hold. Better today Status: Acute (3) Cellulitis: Problem details: Right knee Status: Acute (4) Thrombocytopenia: Problem details: At least in part related to acute infection and right knee. Outpatient follow-up for hematologic abnormalities Status: Acute (5) Anemia: Problem details: Monitor and outpatient follow-up Status: Acute Plan Continue in hospital pending surgical washout an outpatient plan. Time Spent With Patient Total time spent: Total time spent today is 35 minutes, 25 minutes in coordination of care and discussing with patient and other providers management of septic bursitis Subjective Date Seen: 12/15/22 Interval history: Admission date 01/02/2023. Hospital day 2. 82 year old man presented to our emergency department for further assessment of right knee pain.? Roughly 4 weeks ago he was working outdoors, cutting down brush, standing in stream, when he bumped his right knee into some brush.? Sustained a cut with some bleeding.? Cleaned it off.? It stopped bleeding.? He did not think much of it.? Three days ago he noticed the onset of right knee pain, swelling, redness.? Over the last few days he has had chills without fevers or rigors.? Able to weightbear, ambulate, and bend his knees without discomfort.? Denies weakness, somnolence, change in thinking patterns. In the emergency department he has unusually low blood pressures for him with systolic blood pressure of 90 mmHg.? Usual systolic blood pressures run 120-140.? On assessment he is? thought to have a cellulitis involving the right knee, prepatellar area.? Blood cultures obtained.? White blood cell elevated at 13.4.? Platelets 129.? Lactate elevated at 2.2.? On my assessment in the emergency department he has fluctuance in the subpatellar region. I am able to aspirate a small amount of fluid from this bursa under aseptic technique and forward it to the lab for culturing. He indicates he has only minimal discomfort in the knee, no different than yesterday. It does not become worse or better with bending his knee or weight-bearing or ambulating. Did spike a fever in the hospital. He has been treated with IV cefazolin and vancomycin was added when he continued to spike fevers. Culture this morning is growing MSSA so antibiotic therapy is been IV cefazolin alone. Overall he thinks he is feeling better today. He was seen by orthopedic evaluation this morning. They are recommending a washout of the prepatellar bursa. He will go to the OR this afternoon for that. He did eat breakfast this morning shortly after 7:00 a.m.. He has had previous surgeries without complications of anesthesia or bleeding. He reports no other symptoms of illness at this time. Exam Narrative: Exam Narrative: He is alert and appears in no distress. Knee is examined with moderate erythema as well as bruising over the entire anterior knee, especially the prepatellar space. There is a moderate amount of prepatellar swelling which is ballotable consistent with a prepatellar bursa fluid collection or abscess. He indicates this is where the fluid is obtained for culture 2 days ago. He has fairly good range of motion in his knee without significant discomfort. Distally as no swelling and intact pulses. Const: Vital Signs, click to edit/add: Vital Signs - 24 hr 12/14/22 15:30 12/14/22 15:30 12/14/22 15:30 Temperature 98.1 F Pulse Rate Pulse Rate [Right Pulse Oximeter] 66 66 Respiratory Rate 18 18 18 Blood Pressure Blood Pressure [Le ft Arm] 93/66 Pulse Oximetry 96 96 Oxygen Delivery Vt thod Room Air Room Air 12/14/22 16:45 12/14/22 16:55 12/14/22 18:10 Temperature 100.9 F H 100.9 F H 99.9 F H Pulse Rate Pulse Rate [Right Pulse Oximeter] 66 69 Respiratory Rate 18 18 Blood Pressure Blood Pressure [Le ft Arm] 116/49 L 105/63 Pulse Oximetry 96 96 Oxygen Delivery Vt thod Room Air Room Air 12/14/22 18:26 12/14/22 19:00 12/15/22 00:01 Temperature 99.9 F H 99.4 F 99.4 F Pulse Rate Pulse Rate [Right Pulse Oximeter] 67 69 Respiratory Rate 22 18 Blood Pressure Blood Pressure [Le ft Arm] 109/50 L 121/64 Pulse Oximetry 94 92 [facility] 12/15/22 00:45 12/15/22 04:07 12/15/22 07:00 Temperature 99.4 F Pulse Rate Pulse Rate [Right Pulse Oximeter] 68 Respiratory Rate 20 Blood Pressure Blood Pressure [Le ft Arm] 120/61 Pulse Oximetry 92 94 97 Oxygen Delivery Me thod Room Air Room Air Room Air 12/15/22 07:00 12/15/22 07:56 12/15/22 13:50 Temperature 97.4 F L 97.2 F L Pulse Rate 75 Pulse Rate [Right Pulse Oximeter] 72 72 Respiratory Rate 20 20 18 Blood Pressure 119/63 Blood Pressure [Le ft Arm] 104/82 Pulse Oximetry 97 98 Oxygen Delivery Me thod Room Air Room Air 12/15/22 13:55 12/15/22 14:00 Temperature Pulse Rate 66 66 Pulse Rate [Right Pulse Oximeter] Respiratory Rate 16 16 Blood Pressure 117/65 112/69 Blood Pressure [Le ft Arm] Pulse Oximetry 97 96 Oxygen Delivery Me thod Documenting provider has reviewed patient's vital signs: yes Labs Labs: Laboratory Results - last 24 hr 12/15/22 11:20 WBC 10.70 RBC 3.61 L Hgb 10.8 L Hct 34.1 L MCV 95 MCH 30 MCHC 32 Plt Count 113 L C-Reactive Protein 15.4 H
--- NOTE | 2022-12-15 15:56 | PC.NURSE ---
Currently sleeping so have not been able to instruct on usage
--- NOTE | 2022-12-15 17:35 | PC.NURSE ---
End of Shift Note: Patient went to surgery today to have his knee washed out. He returned to the unit around 1430. Has a knee immobilizer in place on right leg. Is weight bearing as tolerated. Did get up to the chair for dinner. When he first returned his heart rate was high 40's low 50's. Once he is more awake his rate is back in the 60's. Has had no complaints of pain. He has not voided since returning to the unit. Has tolerated a regular diet. will continue to monitor until next shift arrives
[2022-12-15] MEDS: ACETAMINOPHEN 325 MG TABLET 650 MG PO (19:23)
[2022-12-15] MEDS: TAMSULOSIN HCL 0.4 MG CAPSULE PO (20:47)
[2022-12-15] MEDS: ENOXAPARIN 40 MG/0.4 ML INJ SUBCUT (20:47)
[2022-12-15] MEDS: ATORVASTATIN 10 MG TABLET 20 MG PO (20:47)
[2022-12-15] MEDS: SENNOSIDES 1 TAB TABLET 2 TAB PO (20:48)
[2022-12-16] MEDS: ACETAMINOPHEN 325 MG TABLET 650 MG PO ×2 (00:35→11:11)
[2022-12-16 03:00] VITALS: BP 132/72; PULSE 63; RESP 16; TEMP 36.6; O2SAT 93
[2022-12-16] MEDS: CEFAZOLIN 2 GM in 0.9 % SODIUM CHLORIDE Mini-bag 100 ML IVPB ×2 (03:51→11:39)
--- NOTE | 2022-12-16 06:07 | PC.NURSE ---
Shift note: Pain treated with Tylenol PRN, pt ambulates independently, WBAT, immobilizer in place, is afebrile
[2022-12-16] MEDS: OMEPRAZOLE 20 MG CAPSULE DR 40 MG PO (06:29)
[2022-12-16 08:24] VITALS: BP 131/62; PULSE 69; RESP 16; RESP 18; TEMP 36.4; O2SAT 96
[2022-12-16] MEDS: SODIUM CHLORIDE 0.9 % (FLUSH) 10 ML SYRINGE 5 ML IVF (09:00)
--- NOTE | 2022-12-16 11:41 | PM.ORPN ---
Subjective Subjective Time Seen by Provider: 10:15 Date Seen: 12/16/22 Principal diagnosis: Day 1 s/p right Interval history: Salazar is doing well this morning resting comfortably in his bed. Complains of mild right knee tenderness, worse at night. Denies fever, chills, erythematous streaking, numbness/tingling distally. No acute concerns. Patient is eager to be discharged to home later this afternoon. Ortho Exam Narrative Exam Narrative: Incision/Dressing: Right knee surgical wound is covered with Webryl and an Jose wrap. This dressing was not removed during this exam. No drainage nor erythematous streaking. Warmth around the wound is appropriate. Moderate right knee swelling. Knee immobilizer in place. CMS: Intact distally with 2+ Dorsalis pedis and Posterior Tibial pulses. 5/5 motor strength dorsal and plantar flexion. Confirmed sensation distally. Intact straight leg raise. Calf: Bilateral calves are supple, with no swelling, pain, tenderness, erythema, discoloration or coolness to the touch. Constitutional: Patient is alert and oriented x3. Patient is in no acute distress and converses without labored breathing. Patient is able to make decisions and demonstrates good insight. Patient is pleasant and cooperative. Affect is full range and appropriate for the circumstances. Const Vital Signs, click to edit/add: Vital Signs - 24 hr 12/15/22 13:50 12/15/22 13:55 12/15/22 14:00 Temperature 97.2 F L Pulse Rate 75 66 66 Pulse Rate [Right Pulse Oximeter] Respiratory Rate 18 16 16 Blood Pressure 119/63 117/65 112/69 Blood Pressure [Left Arm] Pulse Oximetry 98 97 96 Oxygen Delivery Method Room Air 12/15/22 14:05 12/15/22 14:10 12/15/22 14:15 Temperature 97.1 F L Pulse Rate 63 65 62 Pulse Rate [Right Pulse Oximeter] Respiratory Rate 16 16 14 Blood Pressure 131/73 113/88 143/75 H Blood Pressure [Left Arm] Pulse Oximetry 95 99 93 Oxygen Delivery Method 12/15/22 14:20 12/15/22 14:30 12/15/22 14:45 Temperature 96.2 F L 96.2 F L Pulse Rate 64 54 L Pulse Rate [Right Pulse Oximeter] 64 Respiratory Rate 16 20 20 Blood Pressure 139/75 Blood Pressure [Left Arm] 130/64 131/57 L Pulse Oximetry 92 92 Oxygen Delivery Method Room Air Room Air 12/15/22 14:47 12/15/22 14:55 12/15/22 15:15 Temperature 96.7 F L Pulse Rate Pulse Rate [Right Pulse Oximeter] 64 57 L Respiratory Rate 20 20 Blood Pressure Blood Pressure [Left Arm] 131/68 Pulse Oximetry 91 93 Oxygen Delivery Method Room Air Room Air 12/15/22 15:45 12/15/22 16:07 12/15/22 16:30 Temperature 96.7 F L 97.6 F 97.6 F Pulse Rate Pulse Rate [Right Pulse Oximeter] 52 L 51 L 56 L Respiratory Rate 20 18 20 Blood Pressure Blood Pressure [Left Arm] 122/65 112/60 102/51 L Pulse Oximetry 92 95 95 Oxygen Delivery Method Room Air Room Air Room Air 12/15/22 17:00 12/15/22 17:30 12/15/22 18:06 Temperature 98.1 F 98.1 F 98.1 F Pulse Rate Pulse Rate [Right Pulse Oximeter] 61 59 L 61 Respiratory Rate 20 20 20 Blood Pressure Blood Pressure [Left Arm] 113/61 110/51 L 90/55 L Pulse Oximetry 96 99 95 Oxygen Delivery Method Room Air Room Air Room Air 12/15/22 18:30 12/15/22 19:30 12/15/22 23:00 Temperature 98.1 F 99.4 F Pulse Rate Pulse Rate [Right Pulse Oximeter] 74 72 Respiratory Rate 18 18 Blood Pressure Blood Pressure [Left Arm] 99/58 L 110/62 Pulse Oximetry 92 94 92 Oxygen Delivery Method Room Air Room Air Room Air 12/15/22 23:00 12/16/22 03:00 12/16/22 08:24 Temperature 99.2 F 97.9 F Pulse Rate Pulse Rate [Right Pulse Oximeter] 62 63 Respiratory Rate 18 16 16 Blood Pressure Blood Pressure [Left Arm] 116/65 132/72 Pulse Oximetry 92 93 96 Oxygen Delivery Method Room Air Room Air Room Air 12/16/22 08:24 Temperature 97.6 F Pulse Rate Pulse Rate [Right Pulse Oximeter] 69 Respiratory Rate 18 Blood Pressure Blood Pressure [Left Arm] 131/62 Pulse Oximetry 96 Oxygen Delivery Method Room Air Documenting provider has reviewed patient's vital signs: yes Assessment and Plan Assessment and plan (1) Septic prepatellar bursitis of right knee: Problem details: Day 1 s/p right knee septic prepatellar bursa irrigation and debridement of skin and bursa (Dr. Rios, DOS: 12/15/22). Status: Acute Assessment and Plan: May weightbear as tolerates. Knee immobilizer x 1-2 weeks, may remove when resting and to sleep at night. For pain management, recommend acetaminophen during the day and oxycodone prior to bed. Minimize use of narcotics. Keep wound clean and dry. Do not submerge wound under water. Patient will follow-up in 5-7 days with either myself or Lesley Pruitt PA-C for a wound check and again at 10-14 days postop for Nylon suture removal. Phone Orthopedics with any questions or concerns. [phone]
[2022-12-16 11:51] VITALS: BP 131/58; PULSE 67; RESP 16; TEMP 36.8; O2SAT 95
[2022-12-16 15:05] VITALS: BP 139/75; PULSE 54; RESP 16; TEMP 36.8
--- NOTE | 2022-12-16 15:43 | PM.DS1 ---
DS: Providers Provider Date Seen: 12/16/22 Date of admission: 12/13/22 14:57 Primary care physician: Renate Feliciano MD Admitting Clinician: Isaiah Yin MD Attending Physician on discharge: Dash Mack MD Date of Discharge: 12/16/22 DS: Diagnosis Discharge Diagnosis (1) Septic prepatellar bursitis of right knee: Status: Acute Problem details: Day 1 s/p right knee septic prepatellar bursa irrigation and debridement of skin and bursa (Dr. Rios, DOS: 12/15/22). Culture growing MSSA. On Ancef in the hospital and discharged on Keflex (2) Anemia: Status: Acute Problem details: Monitor and outpatient follow-up (3) Thrombocytopenia: Status: Acute Problem details: At least in part related to acute infection and right knee. Outpatient follow-up for hematologic abnormalities (4) Sepsis associated hypotension: Status: Acute Problem details: Hypotension improved associated with holding antihypertensives, treatment of sepsis with antibiotics and fluids DS: Summary Hospital Course Hospital Course: 82-year-old male admitted to the hospital with symptoms of systemic illness associated with red swollen right knee. Subsequently diagnosed with a septic prepatellar bursitis. Treated with Ancef, fluid resuscitation for sepsis. Blood pressure medicines held. Clinically improved over the subsequent 2 days of his hospital stay. Taken to the OR by Dr. Rios on the 2nd day where he had clean out of his septic right prepatellar bursa. Postoperative reports doing well. Minimal pain. Fever has resolved. Status at Discharge Functional status at discharge: independent ambulation Overall status at discharge: patient is progressing back to baseline Time Spent with Patient Time attestation: Total time spent providing and/or coordinating discharge services: Time spent: Greater than 30 minutes Exam Narrative: Exam Narrative: He is alert and appears in no distress. Breathing is unlabored. He is ambulating in the hallway. No significant edema in his feet or ankles. Const: Vital Signs, click to edit/add: Vital Signs - 24 hr 12/15/22 15:45 12/15/22 16:07 12/15/22 16:30 Temperature 96.7 F L 97.6 F 97.6 F Pulse Rate Pulse Rate [Right Pulse Oximeter] 52 L 51 L 56 L Respiratory Rate 20 18 20 Blood Pressure Blood Pressure [Le ft Arm] 122/65 112/60 102/51 L Pulse Oximetry 92 95 95 Oxygen Delivery Me thod Room Air Room Air Room Air 12/15/22 17:00 12/15/22 17:30 12/15/22 18:06 Temperature 98.1 F 98.1 F 98.1 F Pulse Rate Pulse Rate [Right Pulse Oximeter] 61 59 L 61 Respiratory Rate 20 20 20 Blood Pressure Blood Pressure [Le ft Arm] 113/61 110/51 L 90/55 L Pulse Oximetry 96 99 95 Oxygen Delivery Me thod Room Air Room Air Room Air 12/15/22 18:30 12/15/22 19:30 12/15/22 23:00 Temperature 98.1 F 99.4 F Pulse Rate Pulse Rate [Right Pulse Oximeter] 74 72 Respiratory Rate 18 18 Blood Pressure Blood Pressure [Le ft Arm] 99/58 L 110/62 Pulse Oximetry 92 94 92 Oxygen Delivery Me thod Room Air Room Air Room Air 12/15/22 23:00 12/16/22 03:00 12/16/22 08:24 Temperature 99.2 F 97.9 F Pulse Rate Pulse Rate [Right Pulse Oximeter] 62 63 Respiratory Rate 18 16 16 Blood Pressure Blood Pressure [Le ft Arm] 116/65 132/72 Pulse Oximetry 92 93 96 Oxygen Delivery Me thod Room Air Room Air Room Air 12/16/22 08:24 12/16/22 11:51 12/16/22 15:05 Temperature 97.6 F 98.3 F 98.3 F Pulse Rate 54 L Pulse Rate [Right Pulse Oximeter] 69 67 Respiratory Rate 18 16 16 Blood Pressure 139/75 Blood Pressure [Le ft Arm] 131/62 131/58 L Pulse Oximetry 96 95 Oxygen Delivery Me thod Room Air Room Air Documenting provider has reviewed patient's vital signs: yes DS: Data Data Completed and Pending Labs on day of discharge: Preliminary micro results at discharge 12/13/22 12:52 Blood Culture - Preliminary Blood NO GROWTH AFTER 72 HOURS 12/13/22 12:50 Blood Culture - Preliminary Blood NO GROWTH AFTER 72 HOURS 12/15/22 12:58 Aerobic Culture - Preliminary Knee,Right Gram positive cocci Discharge Plan Discharge Disposition: Home, Self-Care Date of Admission: 12/13/22 14:57 Attending Provider on Discharge: Harley Mack Consulting Providers: Blanca,Noe A Primary Care Provider: Renate Feliciano Condition: Stable Anticipated Discharge Date/Time: 12/16/22 10:42 Discharge Medications: New oxycodone 5 mg tablet 5 mg PO Q4-6H MDD 6 tabs per day PRN (Reason: pain) Qty: 15 0RF Rx Instructions: Minimize use. Wean off and discontinue as soon as possible. acetaminophen 500 mg capsule 500 mg PO Q4-6H MDD 4000 mg per day PRNQty: 100 0RF cephalexin 500 mg capsule 500 mg PO QID Qty: 30 0RF Continued omeprazole 40 mg capsule,delayed release(DR/EC) 40 mg PO DAILY atorvastatin 20 mg tablet 20 mg PO HS tamsulosin 0.4 mg capsule 0.4 mg PO QPM losartan-hydrochlorothiazide 100-12.5 mg tablet 1 tab PO DAILY loperamide [Imodium A-D] 2 mg capsule 2 mg PO BID PRN Discharge Orders: Discharge Order (Routine); Ordered 12/16/22 Ordered By: Harley Mack Patient Education: Cephalexin (By mouth), Acetaminophen (By mouth), Oxycodone, Rapid Release (By mouth), Cellulitis (GEN) Additional Instructions: Take off your knee immobilizer and bandage daily to inspect the wound. If the infection appears to be getting worse or if you have a fever return to the emergency department. Activity Level: Activity as Tolerated and Weight Bearing as Tolerated Activity Detail: Knee immobilizer x 1-2 weeks Discharge Diet: Regular Follow Up Appointments: Rena Townsend PA-C [Physician Insurance Risk Surveyor] - 12/20/22 8:30 am ([facility]) Renate Feliciano MD [Primary Care Provider] - Lesley Pruitt PA-C [Physician Insurance Risk Surveyor] - None () Forms: [employer] Info Instructions
== END 2022-12-16 12:57 | disposition home or self-care (01) | DRG 854 ==
LOC: ED 13:39 → MEDSURG 14:49
PROVIDERS: Hospitalist; Orthopaedic Surgery; Admitting Provider Internal Medicine; Emergency Provider Family Medicine; PCP Internal Medicine; Visit Provider Internal Medicine
PROC: 0MBN0ZZ Excision of Right Knee Bursa and Ligament, Open Approach (ICD-10-PCS; CPT 27340; principal; 2022-12-15 12:00)
DX: A41.9 Sepsis, unspecified organism (principal); L03.115 Cellulitis of right lower limb; M71.161 Other infective bursitis, right knee; B95.61 Methicillin susceptible Staphylococcus aureus infection as the cause of diseases classified elsewhere; M25.561 Pain in right knee; I10 Essential (primary) hypertension; J45.909 Unspecified asthma, uncomplicated; K21.9 Gastro-esophageal reflux disease without esophagitis; E78.5 Hyperlipidemia, unspecified; D69.6 Thrombocytopenia, unspecified; D64.9 Anemia, unspecified
CPT/HCPCS: 01400; 36415; 73562; 80048; 80076; 83605; 85025; 85027; 85651; 86140; 87040; 87070; 87075; 87186; 87205; 97116; 97161; 99100; 99140; 99284; A9270; J0665; J0690; J0696; J1650; J1885; J2001; J2250; J2704; J3010; J3370; J7030; J7050; J7120; P9047

== ENCOUNTER 2023-01-20 09:30 | Outpatient (RCR) | payer MEDICARE, BC, SELFPAY ==
--- NOTE | 2022-12-29 15:53 | PT.OPEX ---
PT [place] Outpatient Eval PT [facility] Outpatient Eval Start: 12/29/22 15:21 Freq: Status: Active Protocol: Document 12/29/22 15:21 DOMINGA (Rec: 12/29/22 15:24 Sher [id number]) E-signed By Michele Clark DPT, MS Physical Therapy Outpatient Evaluation Insurance Information Recert Due Date 03/29/23 Insurance Name Medicare B,Blue Cross/Blue Shield Medical Diagnosis Other specific postprocedural states; history of right knee surgery Treating Diagnosis Decreased R knee ROM, decreased R LE flexibility, trace R knee edema, R LE weakness, imbalance and gait dysfunction Subjective Subjective Salazar is an otherwise healthy 82 y.o. male who presents to PT following a complex injury to his R knee on 11/20/22. Pt suffered a laceration to his R knee on a branch while standing in a ione clearing a downed tree. No sxs for almost 3 weeks but experienced significant swelling and pain due to a staph infection in his R knee requiring pre- patellar debridement on 12/15/22 . Had an allergic reaction to the antibiotic on his arms and legs but otherwise surprised how well he is doing. Minimal knee pain or swelling with tightness being chief complaint. Hopes to return to skiing at their house in [place], [place], walking his cocker spaniel and hiking . Very active on his property prior to injury. AGGR factors : extended walking, stair climbing, uneven surfaces, standing, squatting. ALLEV factors: ice, movement. Pain Comments 0-1/10 Current Work Status Retired Precautions Weight Bearing Status Full Weight Bearing Therapy Limitations/Systems Review Not Limited Objective Functional Test Performed & Score LEFS: 40 Assessment Assessment/Impression Objectively, pt displays decreased R knee ROM, decreased R LE flexibility, trace R knee edema, R LE weakness, imbalance and gait dysfunction. Pt is doing very well at 2 weeks post-op, especially considering the extent of his surgery. Minimal warmth and swelling in R knee . Good quality of quad and SLR . Improved knee flex ROM following heel slides and biking. Excellent response to stretching, strengthening and biking today. He will benefit from continued skilled therapy to address these limitations. Primary Functional Limitations Extended walking, stair climbing, uneven surfaces, standing, squatting Plan of Care Rehabilitation Potential Excellent Physical Therapy Goals Long-term goals to be completed in 10 weeks: 1. Pt will be independent and compliant with HEP 2. Pt will display improved R hip flex, quad, ABD and ext of 5/5 to improve quality of gait. 3. Pt will be able to walk >20 min with no elevation in R knee pain to improve cardiovascular health. 4. Pt will display improved mechanics going up<>down >12 stairs with a reciprocal pattern using 1 railing to safely reach his bedroom. 5. Pt will report >12 point improvement in LEFS questionnaire to significantly improve jerilyn to daily activities. Coordination/Communication With Referral Source Treatment Plan/Direct Interventions Joint Mobilization,Manual Therapy,Neuromuscular Re-ed, Therapeutic Exercises Frequency/Duration 1 x per week for at least 6-8 visits, decreasing visit frequency, as able. Patient Will Be Discharged From Therapy Completion of LTG(s),Skills Plateau,Independent w/HEP, Independently Progressing Evaluation Billing Untimed Code Treatment Minutes 22 Complexity Moderate Certification Information Initial Certification Date 12/29/22 Ending Certification Date 03/29/23 Provider Signature Shows Agreement With POC & Medical Necessity Physician Signature & Date Requested Please Sign/Date Here Physician Comment/Change : Physician NPI Number #
== END 2023-05-20 23:59 | disposition home or self-care (01) ==
PROVIDERS: Visit Provider Orthopaedic Surgery
DX: Z98.890 Other specified postprocedural states (principal); Z74.09 Other reduced mobility; M25.461 Effusion, right knee; R26.9 Unspecified abnormalities of gait and mobility; R26.81 Unsteadiness on feet; R53.1 Weakness; Z51.89 Encounter for other specified aftercare
CPT/HCPCS: 97110; 97162

== ENCOUNTER 2024-03-31 10:00 | Emergency (ER) | payer MEDICARE, BC, SELFPAY ==
[2024-03-31 10:07] VITALS: BP 121/68; PULSE 68; RESP 18; TEMP 35.8; O2SAT 98; BMI 24.4
--- NOTE | 2024-03-31 10:32 | XR_ITS ---
Patient: PEACE WEBBER Facility:?[facility] Patient ID:?[id number] Site Patient ID:?[id number]. Site :?[id number] Study:?XRay-Hip Right -03/31/2024 10:49:47 AM Ordering Physician:Malcolm Harrell Final Report: Indication: Worsening right hip pain Technique: An AP view of the pelvis was acquired as well as AP and lateral views of the right hip Comparison: There are no prior studies for comparison Findings: There are degenerative changes of the visualized lower lumbar spine. There is no acute fracture, dislocation or destructive process. There is moderate right hip joint osteoarthritis. There is mild left hip joint osteoarthritis. Mild atherosclerotic vascular calcifications noted Impression: Moderate right hip joint osteoarthritis. Mild left hip joint osteoarthritis. Degenerative changes of the visualized lower lumbar spine. No visible acute fracture, dislocation or destructive process. Dictated by Sarath Finn MD @ 03/31/2024 11:59:31 AM Signed by:?Sarath Finn MD @03/31/2024 11:59:31 AM (Electronic Signature)
--- OUTSIDE RECORDS SUMMARY | 2024-03-31 10:39 | XMS_ITS | Referral Summary ---
Author Organization [facility] Address [address] [place] [address] Care Team Providers Care Business Leader Name Role Phone Matt Montemayor M.D. Primary Care Provider Source Comments Patient records contain information from all sites at [facility]. For routine questions regarding patient records, call [phone] during business hours, M-F 8:00 AM - 5:00 PM Central Time. Record requests for emergency care only can be directed to [phone] at any time.[facility] Encounters Date Type Department Care Team Description 03/31/2024 Nurse Triage Division of [facility] Internal Medicine, [place], [place] [address] [place] [address] Mary Yang R.N. Hip Pain 03/09/2024 10:15 AM CDT Procedure visit Division of [facility] Internal Medicine, [place], [place] [address] [place] [address] Michael Singh M.D. Pain Hip Right 03/06/2024 2:20 PM CDT Office Visit Division of [facility] Internal Medicine, [place], [place] [address] [place] [address] Dajuan Sheehan, EBONY, C.N.P., D.N.P. Pain Hip Right (Primary Dx); Pain Hip Left 03/06/2024 Nurse Triage Division of [facility] Internal Medicine, [place], [place] [address] [place] [phone] Jeni Garduno R.N. Hip Pain 02/21/2024 Clinical Communication Division of [facility] Internal [facility], [place], [place] [address] [place] [phone] Matt Montemayor M.D. Contacts Complete 02/17/2024 9:50 AM CDT Office Visit Division of [facility] Internal Medicine, [facility], [place], [place] [address] [place] [phone] Napoleon Woo M.D. Trochanteric Bursitis Left Hip (Primary Dx); Pain Buttock; Irritable Bowel Syndrome With Diarrhea; Piriformis Syndrome Right; Allergy Bee Sting Initial 02/16/[address] [facility] [place], [place] [address] [place] [phone] Matt Montemayor M.D. 02/09/2024 Clinical Communication Department of Family Medicine, [facility] ? [facility] [place] [facility] in [place], [place] [address] [place] [address] Kerri Fuentes R.N. COVID Treatment Review 02/08/2024 Clinical Communication Division of [facility] Internal [facility], [facility] [place], [place] [address] [place] [phone] Matt Montemayor M.D. External Lab Entry 02/08/[address] [facility], [facility], in [place], [place] [address] [place] [phone] Alexa Courtney R.N. COVFITO Treatment Review 02/04/2024 Orders Only Division of Gastroenterology in [place], [place] [address] [place] [phone] Matt Montemayor M.D. Irritable Bowel Syndrome With Diarrhea (Primary Dx); Incontinence Fecal 02/02/[address] [facility], [facility], in [place], [place] [address] [place] [address] Matt Montemayor M.D. Results 01/24/2024 11:00 AM CDT Ancillary Procedure Department of Gastroenterology 01/24/2024 9:50 AM CDT - 01/24/2024 11:59 PM CDT Hospital Encounter Division of Gastroenterology in [place], [place] [address] [place] [phone] Matt Montemayor M.D. Diarrhea Discharge Disposition: Home or Self Care 01/11/2024 9:10 AM CDT - 01/11/2024 11:59 PM CDT Hospital Encounter Department of Laboratory Medicine and Pathology, [place], [place] [address] [place] [phone] Matt Montemayor M.D. Screening Examination Diabetes Mellitus; Monitoring For Therapeutic Drug Therapy; General Medical Examination Adult Discharge Disposition: Home or Self Care 01/11/2024 3:30 PM CDT Office Visit Division of [facility] Medicine, [place], [place] [address] [place] [address] Matt Montemayor M.D. PreDiabetes (Primary Dx); Trochanteric Bursitis Left Hip; Personal History Of Malignant Neoplasm Of Prostate; Diarrhea; Hypertension Essential Primary; Primary Malignant Neoplasm Of Prostate (HCC); Irritable Bowel Syndrome With Diarrhea from Last 3 Months Allergies Active Allergy Reactions Criticality Noted Date Comments Cat Dander Other (see comments) 05/07/2015 Nasal congestion Iodinated Contrast Media Angioedema (Reselect Reaction) 01/27/2010 Type unknown bronchospasm Mold Other (see comments) 05/07/2015 sneezing Penicillins Other (see comments) 03/27/2007 Skin exfoliation, ICU stay Pollen Extracts Other (see comments) 05/07/2015 sneezing Medications acetaminophen (TYLENOL) 500 mg tablet Take 2 tablets by mouth as needed. pain 5 Active loperamide (IMODIUM) 2 mg capsule Take 2 capsules by mouth daily. 7 Active triamcinolone (NASACORT) 55 mcg/actuation nasal spray Administer 2 sprays into affected nostril(s) daily. each nostril, for congestion 5 Active NON FORMULARY Apply topically 2 (two) times a day. Med Name: Target Brand Ultra Healing Lotion Active diphenhydrAMINE (BENADRYL) 25 mg tablet Take 25 mg by mouth at bedtime as needed for sleep. Active atorvastatin (Lipitor) 20 mg tablet Take 1 tablet (20 mg total) by mouth daily. 90 tablet 3 4 01/11/20 25 Active losartan-hydroC HLOROthiazide (Hyzaar) 100-12.5 mg per tablet Take 1 tablet by mouth daily. 90 tablet 3 4 01/11/20 25 Active omeprazole (PriLOSEC) [address] capsule Take 1 capsule (40 mg total) by mouth daily before morning meal. 90 capsule 3 4 01/11/20 25 Active methylcellulose , with sugar, oral powderIndicatio ns:Irritable Bowel Syndrome With Diarrhea Take 2 g (1 Dose total) by mouth daily. 454 g 1 4 Active Active Problems Problem Noted Date Diagnosed Date Pain Buttock 02/18/2024 Overview (02/18/2024): Mr. Noel follows up today (02/17/2024) for possible right piriformis syndrome. He denies any radiation of pain down his leg but does have intermittent right buttock pain. He was given a script for physical therapy at his last visit, but the prescription only included his left hip and night right buttock. Assessment & Plan (02/18/2024 6:46 AM CDT): Symptoms mildly improved with time. I have provided an additional PT script so that he can get specific pelvic exercises. Allergy Bee Sting Initial 02/18/2024 Overview (02/18/2024): Mr. Noel was stung by two bees several days ago on his left middle finger and neck. He developed significant swelling at the sites of both stings. His symptoms have rapidly improved with benadryl and ice. Assessment & Plan (02/18/2024 6:48 AM CDT): Physical exam confirms significant local reaction to bee stings. Given rapid improvement, no further interventions needed at this time. Recommended patient switch to Zyrtec over benadryl given less sedating properties. Otherwise recommended PRN ice/heat. Piriformis Syndrome Right 01/11/2024 Trochanteric Bursitis Left Hip 10/11/2022 Overview (02/18/2024): Patient has been experiencing pain on his left hip during sleep that prevents him from lying on his left side. It is not exacerbated by activity (eg skiing, walking, etc.). He is not currently experiencing this pain. Plan was for several weeks of PT and then reassessment. [facility] 02/17/2024: Mr. Noel presents today for follow-up of left trochanteric bursitis after undergoing several sessions of PT. He feels his symptoms are still present, but improved compared to last visit. Assessment & Plan (02/18/2024 6:44 AM CDT): Mr. Noel has moderate success with physical therapy. Due to persistence of symptoms, I will refer him for a left trochanteric injection to further help with symptoms. Assessment & Plan (01/11/2024 5:55 PM CDT): - PT ordered - Follow up in 2 months, if not improved will recommend injection Assessment & Plan (10/11/2022 12:05 PM CDT): Pain is consistent with trochanteric bursitis. Patient was advised to use voltaren gel before bed and NSAIDs for refractory pain. If pain persists could consider steroid injection. 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 Unfortunately, symptoms have persisted without change since this procedure. Assessment & Plan (10/11/2022 11:56 AM CDT): Return order placed for Urology Keratosis Actinic 02/04/2022 Overview (02/04/2022): History of multiple non-melanoma skin cancers following with dermatology annually. Last visit was on 07/21/2021. No lesions concerning for malignancy were identified. 8 actinic keratoses were treated with cryotherapy and advised that he will need a biopsy if any of the lesions recur. Assessment & Plan (02/04/2022 11:19 AM CDT): - Full body skin exam with dermatology in 07/2022 General Medical Examination Adult 02/04/2022 Overview (10/11/2022): -Colon Cancer Screening. Last colonoscopy was 2021 with 3x pre-cancerous polyps (in [place]) -Tobacco use: Never -Lung Cancer Screening: Does not meet criteria -Diabetes Screening: FG 113, A1c 5.9 in 2021, repeat today -Dyslipidemia Screenig: lipids within normal limits in 2021 (on atorvastatin 20mg), no need to recheck -Obesity Screening: BMI 25.06 -Immunizations: Tdap -Health Promotion: I have discussed recommendations for age-appropriate preventative health including limiting alcohol consumption, abstaining from tobacco, increasing physical activity, and making healthy diet choices. Dysfunction Erectile 02/04/2022 Overview (02/04/2022): Patient takes Tadalafil 20mg as needed for ED but it has not been working. Assessment & Plan (02/04/2022 5:34 PM CDT): - Started Sildenafil 50mg - May increase to 100mg if not effective - Urology referral if Sildenafil 100 not effective Frequency Urinary 02/04/2022 Overview (10/11/2022): Patient has been waking up to pee 3+ times per night for several years. It was previously thought to be due to BPH now known to be due to postprocedural Bulbous Urethral Stricture likely as a complication of prostate radiation. Assessment & Plan (02/04/2022 5:36 PM CDT): Possibly Hyperactive bladder - Urology referral - Provided patient with resources on bladder retraining, avoidance of irritants, and lifestyle modification Irritable Bowel Syndrome With Diarrhea 8 Overview (02/18/2024): Patient has longstanding IBS-D. He states that he experiences symptoms of diarrhea approximately 2-4 times per week which include abdominal pain accompanied by urge that is relieved with BM. He has found that his symptoms are exacerbated by fried food. He has had 2 episodes of fecal incontinence over the last year His symptoms are not adequately controlled on loperamide. [facility] 02/17/2024: Mr. Noel inquired into additional medications for his IBS, as he occasionally gets fecal incontinence from his episodes of diarrhea. Assessment & Plan (02/18/2024 6:50 AM CDT): Prescribed Citrucel and recommended enteric coated peppermint oil to see if these aid in his symptoms. He declined a GI referral at this time. Assessment & Plan (01/11/2024 5:58 PM CDT): - colonoscopy to evaluate for collagenous colitis or other causes of diarrhea - follow up in 2 months to discuss results Assessment & Plan (10/11/2022 12:01 PM CDT): Advised patient that he may take immodium up to three times per day. Will also obtain labs to rule out secondary causes of diarrhea. - Celiac panel - TSH - CMP Hypertension Essential Primary 09/30/2016 Overview (10/11/2022): HTN diagnosis year: Prior to 2006 HTN stage: Stage I (130-139/80-89) - Initial HTN tests (CBC, BMP, TSH, EKG ) completed? Yes - values within normal limits Blood pressure readings: well controlled (goal 130/80) BP Readings from Last 3 Encounters: 10/11/22 128/72 03/02/22 131/84 02/04/22 121/73 Home blood pressure cuff validated : No Home blood pressure measurements: Unknown Current HTN regimen: ? ? Hyzaar (losartan-HCTZ) 100-12.5mg dialy ? ? Counseling regarding DASH diet, reduced alcohol intake, weight loss if needed, and 90-150 minutes of aerobic exercise weekly completed Prior medications trialed & discontinued with reasons why: ? ? Valsartan then Losartan monotherapy, unknown years Concerns for secondary hypertension: No Notes from 10/11/22: Blood pressure remains well controlled Assessment & Plan (01/11/2024 5:55 PM CDT): Continue Hyzaar Assessment & Plan (10/11/2022 8:48 AM CDT): Continue Hyzaar Assessment & Plan (02/04/2022 3:16 PM CDT): - Continue Hyzaar Primary Malignant Neoplasm Of Prostate 6 Overview (02/04/2022): Patient was noted to have a prostate nodule during 2016 colonoscopy. Prostate MRI in 2017 demonstrated focal bulging in left peripheral zone with indeterminate lentiform T2 lesion in left anterior transitional zone without evidence of pelvic lymphadenopathy or suspicous osseous lesiosn. 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 Annual PSA has been undetectable since 2019 and remains undetectable today. Assessment & Plan (01/11/2024 5:57 PM CDT): - rechecked diagnostic PSA annually Assessment & Plan (10/11/2022 8:52 AM CDT): - Recheck PSA today Assessment & Plan (02/04/2022 1:39 PM CDT): - Recheck PSA next year PreDiabetes 05/07/2015 Overview (01/11/2024): Patient meet diagnostic criteria for prediabetes given fasting glucose elevated to 113 and HgbA1c elevated to 5.9. Lifestyle modification and reduce sugar intake have been implemented. Lab values are stable year over year. Assessment & Plan (01/11/2024 5:56 PM CDT): - recheck A1c and fasting glucose next year Assessment & Plan (10/11/2022 8:50 AM CDT): - Recheck A1c and fasting BMP today Assessment & Plan (02/04/2022 5:32 PM CDT): - Advise on lifestyle modifications including reduced sugar intake, mediterranean diet, and increased exercise. - Recheck Fasting glucose in three months Immunizations Name Administration Dates Next Due HZV (ZOSTAVAX) 11/25/2008 Influenza Split 04/13/2017,03/13/2014,03/13/2012 Influenza Whole 06/26/2013 Influenza high dose QV(65 ye ars or older) (PF) 03/24/2023,03/18/2021 Influenza, Injectable, Mdck, Quadrivalent 04/13/2018 Influenza, Quadrivalent, Adj uvanted, Preservative Free 03/11/2020 Influenza, Seasonal, Injectable 03/28/2012,05/08 Influenza, Unspecified 03/28/2018,03/10/2016,06/2011 PCV13 04/17/2014 PPSV23 03/27/2004 RZV (SHINGRIX) 2021,,10/26/2018(Deferr ed: Patient decision) SARS-COV-2 (COVID-19) - MODE RNA (12 YEARS AND OLDER) Fall Seasonal 03/24/2023 SARS-COV-2 (COVID-19) - PFIZ ER (Discontinued)(12 years or older) 02/11/2021,07/29/2020,07/08/2020 SARS-COV-2 (COVID-19) - PFIZ ER BIVALENT TS(Discontinued)(12 YEARS OR OLDER) 03/19/2022 Tdap 10/11/2022,09/15/2012 Zoster, Unspecified 10/26/2018(Deferred: Other) influenza trivalent high dos e (HD)(PF) 03/18/2021,03/24/2019,04/13/2017,2015,03/07/2015,03/13/2014 Social History Tobacco Use Types Packs/Day Years Used Date Smoking Tobacco: Never Passive Smoke Exposure: Past Smokeless Tobacco: Never Alcohol Use Standard Drinks/Week Comments No 0 (1 standard drink = 0.6 oz pur e alcohol) occasional [facility] Utilities Answer Date Recorded In the past 12 months has [employer], [employer], or water company threatened to shut off services in your home? No 01/11/2024 Humiliation, Afraid, Rape, and Kick questionnair e Answer Date Recorded Within the last year, have y ou been afraid of your partner or ex-partner? No 10/11/2022 Within the last year, have y ou been humiliated or emotionally abused in other ways by your partner or ex-partner? No Within the last year, have y ou been kicked, hit, slapped, or otherwise physically hurt by your partner or ex-partner? No 10/11/2022 Within the last year, have y ou been raped or forced to have any kind of sexual activity by your partner or ex-partner? No 10/11/2022 Social Connection and Isolation Panel [NHANES] A nswer Date Recorded In a typical week, how many times do you talk on the phone with family, friends, or neighbors? Twice a week 10/12/19 How often do you get togethe r with friends or relatives? Three times a week 10/11/2022 How often do you attend chur or worship services? 1 to 4 times per year 10/11/2022 Do you belong to any clubs o r organizations such as temple groups, unions, fraternal or athletic groups, or school groups? Yes 10/11/2022 How often do you attend meet ings of the clubs or organizations you belong to? 1 to 4 times per year 10/11/2022 Are you , , di vorced, , never , or living with a partner? 10/11/2022 AUDIT-C Answer Date Recorded Q1: How often do you have a drink containing alc ohol? Never 10/11/2022 Average Number of Drinks Not on file 023 Frequency of Binge Drinking Not on file 06/2022 Overall Financial Resource Strain (CARDIA) Answe r Date Recorded How hard is it for you to pa y for the very basics like food, housing, medical care, and heating? Not hard at all 03/24/2023 PHQ-2 Answer Date Recorded PHQ-2 Score 0 01/11/2024 [facility] of Occupat ional Health - Occupational Stress Questionnaire Answer Date Recorded Do you feel stress - tense, restless, nervous, or anxious, or unable to sleep at night because your mind is troubled all the time - these days? Only a little 10/11/2022 Exercise Vital Sign Answer Date Recorde d On average, how many days pe r week do you engage in moderate to strenuous exercise (like a brisk walk)? 7 days 01/11/2024 On average, how many minutes do you engage in exercise at this level? 40 min 01/11/2024 Hunger Vital Sign Answer Date Recorded Within the past 12 months, y ou worried that your food would run out before you got the money to buy more. Never true 01/11/20 Within the past 12 months, t he food you bought just didn't last and you didn't have money to get more. Never true 01/11/2024 PRAPARE - Transportation Answer Date Re corded In the past 12 months, has l ack of transportation kept you from medical appointments or from getting medications? No 12/13 In the past 12 months, has l ack of transportation kept you from meetings, work, or from getting things needed for daily living? No 01/11/2024 Nutrition Answer Date Recorded On average, how many serving s of fruits and vegetables do you eat per day (serving size is equal to 1 cup or approximately the size of a tennis ball)? 0-2 01/11/2024 Dental Answer Date Recorded Dental: Regular Dentist No 01/11/20 Employment Answer Date Recorded Employment status Retired 01/11/2024 Housing Stability Answer Date Recorded What is your living situation today? I have a [facility] place to live 01/11/2024 Education Answer Date Recorded What is the highest level of school you have completed or the highest degree you have received? Bachelor's degree (e.g., BA, AB, BS) 10/11/2022 Sex and Gender Information Value Date Recorded Sex Assigned at Male 10/02/2018 11:29 AM CDT Legal Sex Male 2:46 PM [employer]IDENT [employer]ING Gender Identity Male 10/02/2018 11:29 AM CDT Sexual Orientation Straight 10/02/2018 11 :29 AM CDT Last Filed Vital Signs Vital Sign Reading Time Taken Comments Blood Pressure 127/68 03/06/2024 1:55 PM CDT Pulse 63 03/06/2024 1:55 PM CDT Temperature 36.7 ??C (98.1 ??F) 01/24/2024 11:39 AM C DT Respiratory Rate 9 01/24/2024 11:47 AM CDT Oxygen Saturation 98% 01/24/2024 11:47 AM CDT Inhaled Oxygen Concentration - - Weight 78.5 kg (173 lb 1 oz) 03/06/2024 1:55 PM CDT Height 170 cm (5' 6.93) 01/24/2024 10:18 AM CDT Body Mass Index 27.16 01/24/2024 10:18 AM CDT Plan of Treatment Upcoming Encounters Date Type Department Care Team (Late st Contact Info) Description 04/03/2024 1:00 PM CDT Office Visit Division of [facility] Internal Medicine, [place], [place] [address] [place] [phone] Rena Golden APRN, C.N.P., M.S.N. [address] [place] [address] Medical Devices Implanted Type Area Philatelic Consultant Device Identifier Shelf Expiration Date Model / Serial / Lot [employer]ston After Cardiac Surgery Implanted:1988 (Quantity not on file) Cardiac Other Heart Description:Body Location - Heart. Device Status Text - CardOther. Conversions - Default Historical Implant Device Implanted:2008 (Quantity not on file) Mesh or Patch Groin Description:Body Location - Groin. Device Status Text - MeshPatch. Procedures Procedure Name Priority Date/Time Associated Diagnosis Comments NC ARTHCS ASP/INJ MJR JT WO US Routine 03/09/2024 10:15 AM CDT Pain Hip Right EXTM HOME SARS CORONAVIRUS-2 (COVID-19) ANTIGEN, V Routine 02/08/2024 SURGICAL PATHOLOGY Routine 01/24/2024 11 :25 AM CDT COLONOSCOPY Routine 01/24/2024 11:00 AM CDT Diarrhea COLONOSCOPY Routine 01/24/2024 11:00 AM CDT Diarrhea GASTROENTEROLOGY IMAGE EXAM Routine 01/24/2024 11:00 AM CDT HEMOGLOBIN A1C, B Routine 01/11/2024 9:2 1 AM CDT General Medical Examination Adult GLUCOSE, FASTING, S/P Routine 01/11/2024 9:21 AM CDT Screening Examination Diabetes Mellitus PROSTATE-SPECIFIC AG (PSA) SCRN, S Routine 01/11/2024 9:20 AM CDT General Medical Examination Adult BASIC METABOLIC PANEL, S/P Routine 01/11/2024 9:20 AM CDT Monitoring For Therapeutic Drug Therapy from Last 3 Months Results * NC ARTHCS ASP/INJ MJR JT WO US (03/09/2024 10:15 AM CDT) Narrative MMODAL - 03/09/2024 10:15 AM CDT Micahel Singh M.D. ? 03/09/2024 10:22 AM Hip site - Right greater trochanteric bursa: injection only Performed by: Michael Singh M.D. Authorized by: Michael Singh M.D. ?? PROCEDURE DETAILS Procedure Location hip Hip site - Right greater trochanteric bursa Site prep: patient was prepped and draped in usual sterile fashion ?? Patient position: side-lying Procedural approach: lateral Procedure performed: injection only Needle gauge: 25 G, length: 2 in Procedural Medication The following medications were administered at the target site(s) Local anesthetic: 8 mL BUPivacaine 0.5 % (5 mg/mL) Corticosteroid: 40 mg methylPREDNISolone acetate 40 mg/mL CONSENT Consent obtained: written (Risks, benefits and alternatives were discussed and a written Informed Consent was obtained. Please see Informed Consent form for further details.) UNIVERSAL PROTOCOL All relevant documentation and testing were reviewed and available. All required blood products, implants, devices and or special equipment were made available as applicable. Pre-procedure verification was conducted and the correct site was marked if required. A fire risk and smoke assessment were done as applicable. The procedural time-out to verify correct patient, correct side/site, and procedure was conducted prior to performing the procedure and confirmed in a procedural pause. PRE-PROCEDURE DETAILS Procedure purpose: therapeutic Appropriate hand hygiene, gown, cap, mask, protective eyewear, sterile gloves, skin preparation, sterile drape, and strict aseptic technique were utilized as applicable for the procedure. Site preparation: chlorhexidine SEDATION / ANESTHESIA Anesthesia method: topical application Topical application type: aerosol cold spray POST-PROCEDURE DETAILS Procedure completed successfully: yes Complications: no apparent complications ?? Michael Singh M.D. PROCEDURE/MINOR SURGICAL OR DERABLES Final Result Performing Organization Address [facility] Co de Phone Number MMODAL NA * (ABNORMAL) EXT Home SARS Coronavirus-2 (COVID-19) Antigen (02/08/2024) EXT Home SARS-CoV-2 Antigen Presumptive Positive(A) Presumptive Negative OTHER (SPECIFY IN SIGNAL MAINTAINER) Swab 02/08/2024 [facility] Provider LAB MICROBIOLOGY - GENERAL O RDERABLES Final Result Performing Organization Address [facility] Co de Phone Number OTHER (SPECIFY IN SIGNAL MAINTAINER) N/A * Surgical Pathology (01/24/2024 11:25 AM CDT) 01/25/2024 2:48 PM CDT DTL Report electronically signed by Jacob Freire M.D. I verify that I have examined all relevant slides/materia ls for the specimen(s) and rendered or confirmed the diagnosis. 01/25/2024 2:48 PM CDT DTL Gross Description Received in formalin labeled with the patient's name, medical record number, and colon-biopsy, random sites (colon) are 10 pale prasad-pink irregular soft tissues, ranging from 0.2-0.5 cm in greatest dimension. Specimens are submitted en toto in cassette A1. Grossed byBELTRAN. 01/25/2024 2:48 PM CDT DTL Interpretation FINAL DIAGNOSIS A. Colon, Random Sites, endoscopic biopsy: ??Colonic mucosa without diagnostic abnormality. ??No microscopic colitis. Digital imaging was used in the diagnostic assessment of this case. 01/25/2024 2:48 PM CDT DTL Biopsy (Colon) 01/24/2024 11 :25 AM CDT us Luc Pratt Jr., M.D. LAB SURG PATH ORDERAB LES Final Result Performing Organization Address City/State/[facility] Co de Phone Number [facility] [address] [place] [address], [facility] DTL [address] [facility] [address] [place] [address] * Colonoscopy (01/24/2024 11:00 AM CDT) 01/24/2024 11:0 0 AM CDT Impressions [facility] - 01/24/2024 11:38 AM CDT Post-op Diagnoses: ? - The examined portion of the ileum was normal. ? - The entire examined colon is normal. Biopsied. ? 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 rectum. Narrative [facility] - 01/24/2024 11:38 AM CDT Gonda 9 GI GI Patient Name: Salazar Noel Date of : 1940 Age: 83 Procedure Date: 01/24/2024 Procedure: ? Colonoscopy Providers: ? Luc Pratt MD Referring Provider: ?Matt Montemayor Pre-op Diagnoses: ?Chronic diarrhea Recommendation: ? - Await pathology results. ? - Return to referring physician today. Findings: ? The terminal ileum appeared normal. ? The colon (entire examined portion) appeared normal. Biopsies for ? histology were taken with a cold forceps from the ascending colon, ? transverse colon, descending colon and sigmoid colon for evaluation of ? microscopic colitis. Estimated blood loss was minimal. ? A few small patchy angiodysplastic lesions without bleeding were found ? in the distal rectum. There was also mucosal pallor. 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 ? No additional abnormalities were found on retroflexion. Procedural Details: ? The patient was seen, evaluated, history reviewed, airway and heart-lung ? exams were performed by licensed provider and were satisfactory for ? planned level of sedation care. ? The risks, benefits and alternatives for the procedure and sedation were ? discussed and informed consent was obtained. A procedural pause was ? conducted in the presence of assisting personnel to verify the correct ? patient identity and procedure to be performed. Throughout the ? procedure, the patient's blood pressure, pulse, and oxygen saturations ? were monitored continuously. The Pediatric Colonoscope was introduced ? under direct vision through the anus and advanced to 1 cm into the ? ileum. The colonoscopy was performed without difficulty. The patient ? tolerated the procedure well. The quality of the bowel preparation was ? evaluated using the BBPS ([place] Bowel Preparation Scale) with scores ? of: Right Colon = 2 (minor amount of residual staining, small fragments ? of stool and/or opaque liquid, but mucosa seen well), Transverse Colon = ? 2 (minor amount of residual staining, small fragments of stool and/or ? opaque liquid, but mucosa seen well) and Left Colon = 2 (minor amount of ? residual staining, small fragments of stool and/or opaque liquid, but ? mucosa seen well). The total BBPS score equals 6. The quality of the ? bowel preparation was good. Estimated Blood Loss: ?Estimated blood loss was minimal. Complications: ? No immediate complications. Estimated blood loss: ? Minimal. Sedation: ? Moderate (conscious) sedation was administered by the nurse and ? supervised by the endoscopist. The following parameters were monitored: ? oxygen saturation, heart rate, blood pressure, and response to care. ? Total physician intraservice time was 21 minutes. Attending Participation: I personally performed the entire procedure. Luc Pratt MD 01/24/2024 11:38:27 AM This report has been signed electronically. Number of Addenda: 0 Matt Montemayor M.D. GI PROCEDURE ORDERABLES Fin al Result Performing Organization Address City/[facility] Co de Phone Number MEAGAN LEY NA * Colonoscopy-Gastroenterology Image Exam (01/24/2024 11:00 AM CDT) 01/24/2024 11:0 0 AM CDT Narrative [facility] - 01/24/2024 11:42 AM CDT This order has been created and auto-finalized to support the import of images acquired without order. The clinical documentation to support these images can be found on the encounter that produced images. Provider Not In System IMG NON RAD IMAGING PROCE DURES Final Result Performing Organization Address [facility] Co de Phone Number [facility] NA * (ABNORMAL) Hemoglobin A1c (01/11/2024 9:21 AM CDT) Hemoglobin A1c, B 5.9(H) 4.0 - 5.6 % 01/11/2024 10:34 AM CDT DTL Comment: Hemoglobin A1c values of 5.7-6.4 percent indicate an increased risk for developing diabetes mellitus. In diabetic patients, HbA1c goals should be discussed with healthcare provider. Blood (Blood, Venous) 01/11/2024 9:21 AM CDT 01/11/2024 9:35 AM CDT Matt Montemayor M.D. LAB BLOOD ADD-ON Final Resu lt Performing Organization Address City/[facility] Co de Phone Number [facility] [address] [place] [address], [place] DTL [facility] [address] [place] [address] * (ABNORMAL) Glucose, Fasting (01/11/2024 9:21 AM CDT) Glucose, P 113(H) 70 - 100 mg/dL 01/11/2024 10:03 AM CDT DTL Last Intake 15 hr 01/11/2024 9:44 AM CDT DTL Blood (Blood, Venous) 01/11/2024 9:21 AM CDT 01/11/2024 9:44 AM CDT Matt Montemayor M.D. LAB BLOOD NON ADD-ON Final Result Performing Organization Address [facility] de Phone Number [facility] [address] [facility] [address] [place] [address] * PSA (Prostate-Specific Antigen) Screen (01/11/2024 9:20 AM CDT) Pathologist [facility] Prostate-Specific Ag <0.10 <=7.2 ng/mL 01/11/2024 10:18 AM CDT DTL Comment: ----ADDITIONAL INFORMATION---- The testing method is an electrochemiluminescence assay manufactured by [employer] and performed on the Modular or Mckenna system. Values obtained with different assay methods or kits may be different and cannot be used interchangeably. Test results cannot be interpreted as absolute evidence for the presence or absence of malignant disease. Blood (Blood, Venous) 01/11/2024 9:20 AM CDT 01/11/2024 9:49 AM CDT Matt Montemayor M.D. LAB BLOOD ADD-ON Final Resu lt Performing Organization Address [facility] de Phone Number [facility] [address] [place] [address], [facility] DTL [facility] [address] [place] [address] * Basic Metabolic Panel (01/11/2024 9:20 AM CDT) Pathologist [facility] Potassium, S 4.3 3.6 - 5.2 mmol/L 01/11/2024 10:18 AM CDT DTL Sodium, S 141 135 - 145 mmol/L 01/11/2024 10:18 AM CDT DTL Chloride, S 104 98 - 107 mmol/L 01/11/2024 10:18 AM CDT DTL Bicarbonate, S 28 22 - 29 mmol/L 01/11/2024 10:18 AM CDT DTL Anion Gap 9 7 - 15 01/11/2024 10:18 AM CDT DTL BUN (Blood Urea Nitrogen), S 17 8 - 24 mg/dL 01/11/2024 10:18 AM CDT DTL Creatinine 1.11 0.74 - 1.35 mg/dL 01/11/2024 10:18 AM CDT DTL Estimated GFR (eGFR) 65 >=60 mL/min/BSA 01/11/2024 10:18 AM CDT DTL Comment: Estimated GFR calculated using the 2020 CKD_EPI creatinine equation. Calcium, Total, S 9.2 8.8 - 10.2 mg/dL 01/11/2024 10:18 AM CDT DTL Glucose, S CANCELED mg/dL 01/11/2024 9:49 AM CDT DTL Comment: Duplicate test request. Result canceled by the ancillary. Blood (Blood, Venous) 01/11/2024 9:20 AM CDT 01/11/2024 9:49 AM CDT us Matt Montemayor M.D. LAB BLOOD ADD-ON Final Resu lt [facility] [address] [place] [address], [place] [facility] [address] [place] [address] from Last 3 Months Insurance [facility] MEDICARE Advance Directives For more information, please contact: [phone] Documents on File Type Date Recorded Patient Practical Nurse Expl anation Advance Directives 02/09/2022 11:26 AM RYAN Noel HCPOA/ADVOCATE/AGENT/REP RESENTATIVE/SURROGATE Healthcare Agents on File Name Relationship Healthcare Agent Relationshi p Communication RYAN Noel Spouse Health Care Agent Leticia Noel Daughter First Alternate Health Care Agent Care Teams Business Leader Relationship Specialty Start Date End Date Matt Montemayor M.D. [address] [place] [address] PCP - General 12/11/21
--- OUTSIDE RECORDS SUMMARY | 2024-03-31 10:39 | XMS_ITS | Clinical Summary ---
Author Organization [facility] Address [address] [place] [id number] Care Team Providers Care Pathology Technologist Name Role Phone No Ref-Primary, Physician Primary Care Provider Allergies Active Allergy Reactions Criticality Noted Date Comments Cat Hair Extract Other (See Comments) 5 Nasal congestion Iodinated Contrast Media Angioedema 01/27/2010 Type unknown bronchospasm Mold Other (See Comments) 05/07/2015 sneezing Penicillins Other (See Comments) 03/27/2007 Skin exfoliation, ICU stay Pollen Extract Other (See Comments) 05/07/2015 sneezing Social History Tobacco Use Types Packs/Day Years Used Date Smoking Tobacco: Never Assessed Adolescent Education Answer Date Record ed Getting School Help Needed Not on file 03/05 Sex and Gender Information Value Date Recorded Sex Assigned at Not on file Gender Identity Not on file Sexual Orientation Not on file Last Filed Vital Signs Vital Sign Reading Time Taken Comments Blood Pressure 118/76 02/22/2023 11:43 AM CDT Pulse 79 02/22/2023 11:43 AM CDT Temperature 36.4 ??C (97.6 ??F) 02/22/2023 11:43 AM C DT Respiratory Rate 18 02/22/2023 11:43 AM CDT Oxygen Saturation 99% 02/22/2023 11:43 AM CDT Inhaled Oxygen Concentration - - Weight - - Height - - Body Mass Index - - Plan of Treatment Health Maintenance Due Date Last Done Comments ADVANCE CARE PLANNING 1940 ANNUAL REVIEW OF HM ORDERS 1940 FALL RISK ASSESSMENT 2004 RSV VACCINE (1 - 1-dose 75+ series) 2014 MEDICARE ANNUAL WELLNESS VISIT 01/07/2022 01/07/2021, 12/06/2019 PHQ-2 (once per calendar year) 2023 COVID-19 Vaccine ( season) 2024 03/19/2022, 02/11/2021, 07/29/2020, Additional history exists INFLUENZA VACCINE (#1) 2024 2, 03/18/2021, 03/18/2021, Additional history exists DTAP/TDAP/TD IMMUNIZATION (3 - Td or Tdap) 10/11/2032 10/11/2022, 09/15/2012 Pneumococcal Vaccine: 65+ Years Completed 04/17/2014, 03/27/2004 ZOSTER IMMUNIZATION Completed 2021, 12/24/2020, 11/25/2008 HPV IMMUNIZATION Aged Out No longer e ligible based on patient's age to complete this topic MENINGITIS IMMUNIZATION Aged Out No l onger eligible based on patient's age to complete this topic RSV MONOCLONAL ANTIBODY Aged Out No l onger eligible based on patient's age to complete this topic Care Teams Pathology Technologist Relationship Specialty Start Date End Date No Ref-Primary, Physician PCP - General 02/22/23
--- OUTSIDE RECORDS SUMMARY | 2024-03-31 10:39 | XMS_ITS | Encounter Summary ---
Author Organization [facility] Address [address] [place] [address] Care Team Providers Care Trust Administrator Name Role Phone Matt Montemayor M.D. Primary Care Provider Reason for Referral * Outpatient (Routine) - Closed Specialty Diagnoses / Procedures Referred By Contac t Referred To Contact Diagnoses Pain Hip Right Procedures CIM non-ultrasound guided aspiration/injection Dajuan Sheehan APRN, C.N.P., D.N.P. [address] [place] [address] Phone: tel: fax: [facility] Referral ID Status Reason Start Date Expiration Date Visits Re quested Visits Authorized [id number] Closed 03/06/2024 03/06/2025 1 1 Reason for Visit * Reason Comments Follow-up Severe hip pain / tr iaged/ 4 hour * Appointment Request (Routine) - Closed Specialty Diagnoses / Procedures Referred By Contac t Referred To Contact Family Medicine Referral ID Status Reason Start Date Expiration Date Visits Re quested Visits Authorized [id number] Closed 03/06/2024 03/06/2025 1 1 Encounter Details Date Type Department Care Team ([facility] st Contact Info) Description 03/06/2024 2:20 PM CDT Office Visit Division of [facility], [facility] in [place], [place] [address] [place] [address] Dajuan Sheehan, EBONY, C.N.P., D.N.P. [address] [place] [address] Pain Hip Right (Primary Dx); Pain Hip Left Social History Tobacco Use Types Packs/Day Years Used Date Smoking Tobacco: Never Passive Smoke Exposure: Past Smokeless Tobacco: Never Alcohol Use Standard Drinks/Week Comments No 0 (1 standard drink = 0.6 oz pur e alcohol) occasional [facility] Utilities Answer Date Recorded In the past 12 months has e electric, gas, oil, or water company threatened to shut off [...] 10/11/2022 How often do you attend chur ch or jew services? 1 to 4 times per year 10/11/2022 Do you belong to any clubs o r organizations such as taoist groups, unions, fraternal or athletic groups, or [...] Answer Date Recorded PHQ-2 Score 0 01/11/2024 [facility] of Occupat ecu healthal [facility] - Occupational Stress Questionnaire Answer Date Recorded [...] money to buy more. Never true 01/11/20 24 Within the past 12 months, t he [...] Date Recorded Dental: Regular Dentist No 01/11/20 24 Employment Answer Date Recorded Employment status Retired 01/11/2024 Housing Stability Answer Date Recorded What is your living situation today? I have a [facility] [place] place to live 01/11/2024 Education Answer Date Recorded What is the highest level of school you have completed or the highest degree you have received? 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 - 03/06/2024 2:20 PM CDT To assist with pain, you can consider using one or more of the following: Warm compresses or cold compresses. If using cold compresses, do not place ice directly on your skin and do not keep in place for more than 20 minutes at a time Acetaminophen (Tylenol). Be certain to follow the directions on the box and do not exceed 3000 mg (six extra-strength tablets) of acetaminophen in one day. Topical medications such as [place], Salonpas, Aspercreme, lidocaine patches, or Voltaren gel. documented in this encounter Progress Notes * Dajuan Sheehan APRN, C.N.P., D.N.P. - 03/06/2024 2:20 PM CDT SUBJECTIVE CHIEF COMPLAINT / REASON FOR VISIT Salazar Noel is a 83 y.o. male who presents today for Chief Complaint Patient presents with Follow-up Severe hip pain / triaged/ 4 hour HISTORY OF PRESENT ILLNESS #1 Pain Hip Right #2 Pain Hip Left Mr. Noel pleasant 83-year-old male here today with pain in his right hip. He previously discuss this pain with Dr. Woo on 02/17/2024. At that time he was experiencing posterolateral pain in bothhips with the pain being worse in his left than his right. Since that appointment, he has been working with physical therapy and managing his pain conservatively. He is also scheduled for a greater trochanteric bursa injection on 03/09/2024. Today he reports that the pain in his left hip has significantly improved to the point that he is considering cancelling his appointment for Tuesday, but unfortunately the pain in his right hip has persisted and gotten worse over time. He reports that the pain is isolated to his posterolateral hip and lateral upper thigh. Pain is primarily aggravated with activity and if he lays on his right side.He denies noting any limb weakness, numbness, tingling, or pain radiating past his knee. He has been managing his pain with Tylenol. He has not tried any ice, heat, or topical medications. The following portions of the patient's chart were reviewed and updated as needed: allergies, current medications, family history, medical history, social history, surgical history, and problem list OBJECTIVE VITAL SIGNS BP 127/68 (BP Location: Right arm, Patient Position: Sitting, Cuff Size: Regular) Pulse 63 Wt 78.5 kg BMI 27.16 kg/m?? PHYSICAL EXAMINATION Constitutional General: He is not in acute distress. Appearance: Normal appearance. Musculoskeletal Comments: Right hip: No ecchymosis, no erythema, no swelling. Tenderness to palpation present immediately posterior to the greater trochanter. Pain is provoked with abduction and CLAUDE. Negative FADIR, negative Harley, negative scour. Skin General: Skin is warm and dry. Neurological Mental Status: He is alert and oriented to person, place, and time. Psychiatric Mood and Affect: Mood normal. Behavior: Behavior normal. Thought Content: Thought content normal. Judgment: Judgment normal. 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 I have provided him with a referral to the procedure clinic for an injection to the right hip. We will see if they can swap out his current visit to be in the right hip and so the left. He should continue working with physical therapy. We reviewed conservative pain management techniques. If his pain does not improve with physical therapy, he will contact us and we would consider imaging. He verbalized understanding and agreement with this plan. Ready to learn, no apparent learning barriers were identified; learning preferences include listening. 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 documented in this encounter Plan of Treatment Upcoming Encounters Date Type Department Care Team (Late st Contact Info) Description 04/03/2024 1:00 PM CDT Office Visit Division of [facility], [facility], in [place], [place] [address] [place] [phone] Rena Golden APRN, C.N.P., M.S.N. [address] [place] [phone] Scheduled Orders Name Type Priority Associated Diagnoses Orde r Schedule CIM non-ultrasound guided aspiration/injection Procedures Routine Pain Hip Right Expected: 03/06/2024, Expires: 06/12/2024 documented as of this encounter Visit Diagnoses Diagnosis Pain Hip Right- Primary Pain Hip Left documented in this encounter Care Teams Trust Administrator Relationship Specialty Start Date End Date Matt Montemayor M.D. [address] [place] [phone] PCP - General 12/11/21 documented as of this encounter
--- OUTSIDE RECORDS SUMMARY | 2024-03-31 10:39 | XMS_ITS | Clinical Summary ---
Author Organization [facility] Address [address] [place] [address] Care Team Providers Care Fuel Distribution System Operator Name Role Phone Matt Montemayor M.D. Primary Care Provider Source Comments Patient records contain information from all sites at [facility]. For routine questions regarding patient records, call [phone] during business hours, M-F 8:00 AM - 5:00 PM Central Time. Record requests for emergency care only can be directed to [phone] at any time.[facility] Allergies Active Allergy Reactions Criticality Noted Date [...] several weeks of PT and then reassessment. CIM 02/17/2024: Mr. Noel presents today for follow-up [...] was 2021 with 3x pre-cancerous polyps (in [place]) -Tobacco use: Never -Lung Cancer Screening: Does [...] - Recheck Fasting glucose in three months Encounters Date Type Department Care Team Description 03/31/2024 Nurse Triage Division of [facility] Internal Medicine, [address] [phone] Mary Yang R.N. Hip Pain 03/09/2024 10:15 AM CDT Procedure visit Division of [facility] Internal Medicine, [place], [place] [address] [place] [phone] Michael Singh M.D. Pain Hip Right 03/06/2024 2:20 PM CDT Office Visit Division of [facility] Internal [facility], [address] [phone] Dajuan Sheehan, EBONY, C.N.P., D.N.P. Pain Hip Right (Primary Dx); Pain Hip Left 03/06/2024 Nurse Triage Division of [facility] Internal [facility], [place], [place] [address] [place] [phone] Jeni Garduno R.N. Hip Pain 02/21/2024 Clinical Communication Division of [facility] Internal [facility], [facility] in [place], [place] [address] [place] [phone] Matt Montemayor M.D. Contacts Complete 02/17/2024 9:50 AM CDT Office Visit Division of [facility] Internal [facility], [facility], in [address] [phone] Napoleon Woo M.D. Trochanteric Bursitis Left Hip (Primary Dx); Pain Buttock; Irritable Bowel Syndrome With Diarrhea; Piriformis Syndrome Right; Allergy Bee Sting Initial 02/16/2024 Clinical Communication Division of [facility] Internal Medicine, [facility], in [place], [place] [address] [place] [phone] Matt Montemayor M.D. 02/09/2024 Clinical Communication Department of Family Medicine, [facility] in [place], [place] [address] [place] [phone] Kerri Fuentes R.N. COVID Treatment Review 02/08/2024 Clinical Communication Division of [facility] Internal Medicine, [address] [phone] Matt Montemayor M.D. External Lab Entry 02/08/2024 Nurse Triage Division of [facility] Internal Medicine, [place], [place] [address] [place] [phone] Alexa Courtney R.N. COVID Treatment Review 02/04/2024 Orders Only Division of Gastroenterology in [address] [phone] Matt Montemayor M.D. Irritable Bowel Syndrome With Diarrhea (Primary Dx); Incontinence Fecal 02/02/2024 Clinical Communication Division of [facility] Internal Medicine, [place], [place] [address] [place] [phone] Matt Montemayor M.D. Results 01/24/2024 11:00 AM CDT Ancillary Procedure Department of Gastroenterology 01/24/2024 9:50 AM CDT - 01/24/2024 11:59 PM CDT Hospital Encounter Division of Gastroenterology in [address] [phone] Matt Montemayor M.D. Diarrhea Discharge Disposition: Home or Self Care 01/11/2024 3:30 PM CDT Office Visit Division of [facility] Internal Medicine, [place], [place] [address] [place] [phone] Matt Montemayor M.D. PreDiabetes (Primary Dx); Trochanteric Bursitis Left Hip; Personal History Of Malignant Neoplasm Of Prostate; Diarrhea; Hypertension Essential Primary; Primary Malignant Neoplasm Of Prostate (HCC); Irritable Bowel Syndrome With Diarrhea 01/11/2024 9:10 AM CDT - 01/11/2024 11:59 PM CDT Hospital Encounter Department of Laboratory Medicine and Pathology, [facility] in [place], [place] [address] [place] [phone] Matt Montemayor M.D. Screening Examination Diabetes Mellitus; Monitoring For Therapeutic Drug Therapy; General Medical Examination Adult Discharge Disposition: Home or Self Care from Last 3 Months Immunizations Name Administration Dates Next Due HZV [...] influenza trivalent high dos e (HD)(PF) 03/18/2021,03/24/2019,04/13/2017,2015,03/07/2015,03/13/2014 Family History Medical History Relation Name Comments car accident Brother 1 Mau Bert Coronary artery disease Brother 3 Luis Amnuel Heart attack Brother 3 Luis Manuel Pancreatic cancer Brother 5 Anibal Coronary artery disease Brother 6 Mau Pneumonia Brother 6 Mau Coronary artery disease Brother 8 Terrenece Heart attack Brother 8 Terrenece Heart attack Father Spencer Asthma Sister 1 Rosenda Blood clot Sister 2 Amber Relation Name Status Comments Brother 1 Mau Noel Brother 2 Lefty Brother 3 Luis Manuel Brother 4 Brien Alive Brother 5 Anibal Brother 6 Mau Brother 7 pati Alive Brother 8 Katienece Father Spencer Mother Rosenda Sister 1 Rosenda Sister 2 Amber Sister 3 Elizabeth Sister 4 Nereida Social History Tobacco Use Types Packs/Day Years Used Date Smoking Tobacco: Never Passive Smoke Exposure: Past Smokeless Tobacco: Never Alcohol Use Standard Drinks/Week Comments No 0 (1 standard drink = 0.6 oz pur e alcohol) occasional [facility] Utilities Answer Date Recorded In the [...] often do you attend chur ch or hinduism services? 1 to 4 times per year 10/11/2022 Do you belong to any clubs o r organizations such as mormon groups, unions, fraternal or athletic groups, or [...] Answer Date Recorded PHQ-2 Score 0 01/11/2024 [facility] of Occupat ional Health - Occupational Stress [...] your living situation today? I have a [facility] place to live 01/11/2024 Education Answer Date Recorded What is the highest level of school you have completed or the highest degree you have received? 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 [address] [place] [address] Health Maintenance Due Date Last Done Comments COVID-19 Vaccine (2023-2 5 season) 2024 03/24/2023, 03/19/2022, 02/11/2021, Additional history exists Influenza Vaccine (#1) 2024 , 04/08/2022, 03/18/2021, Additional history exists Visit: Medicare Annual Wellness 03/25/2024 3 Creatinine Level (Kidney Fun ction Test) 01/10/2025 01/11/2024, 10/11/2022, 02/04/2022, Additional history exists Fasting Glucose for Diabetes Screening 01/10/2025 01/11/2024, 01/11/2024, 10/11/2022, Additional history exists Potassium Level 01/10/2025 01/11/2024, 05/0 06/2022, 02/04/2022, Additional history exists Sodium Level 01/10/2025 01/11/2024, 05/0 06/2022, 02/04/2022, Additional history exists Visit: Chronic Disease, age 18+ 01/10/2025 4 Office Visit for Blood Press ure Check / Re-check 03/06/2025 03/06/2024 DTaP,Tdap,and Td Vaccines (3 - Td or Tdap) 10/11/2032 10/11/2022, 09/15/2012 Pneumococcal vaccine (65+ years) Completed 04/17/20 14, 03/27/2004 Zoster Vaccines Completed 2021, 12/11, 10/26/2018, Additional history exists RSV vaccine - (32-3 6 weeks) or 60+ years Completed 03/31/2023 Depression Screening (Annual PHQ-2) Completed 01/11/2024 Colonoscopy Discontinued 01/24/2024, 01/11, 06/12/2008 (Performed elsewhere) Colorectal Cancer Surveillance Discontinued Fall Risk Screen (Annual) Completed 01/24/2024 CT Colonography Discontinued Cologuard Discontinued Medical Devices Implanted Type Area Millwright Helper Device Identifier Shelf Expiration Date Model / Serial / Lot [place] After Cardiac Surgery Implanted:1988 (Quantity not on file) Cardiac Other Heart Description:Body Location - Heart. Device Status Text - CardOther. Conversions - Default Historical Implant Device Implanted:2008 (Quantity not on file) Mesh or Patch Groin Description:Body Location - Groin. Device Status Text - MeshPatch. Procedures Procedure Name Priority Date/Time Associated Diagnosis Comments FL ARTHCS ASP/INJ MJR JT WO US Routine [...] Therapy from Last 3 Months Results * FL ARTHCS ASP/INJ MJR JT WO US (03/09/2024 10:15 AM CDT) Narrative MMODAL - 03/09/2024 10:15 AM CDT Michael Singh M.D. ? 03/09/2024 10:22 AM Hip [...] OR DERABLES Final Result Performing Organization Address [facility] de Phone Number MMODAL NA * (ABNORMAL) EXT Home SARS Coronavirus-2 (COVID-19) Antigen (02/08/2024) EXT Home SARS-CoV-2 Antigen Presumptive Positive(A) Presumptive Negative OTHER (SPECIFY IN ESTHETICIAN FACIALIST) Swab 02/08/2024 [facility] Provider LAB MICROBIOLOGY - GENERAL O RDERABLES Final Result Performing Organization Address [facility] Co de Phone Number OTHER (SPECIFY IN ESTHETICIAN FACIALIST) N/A * Surgical Pathology (01/24/2024 11:25 AM [...] submitted en toto in cassette A1. Grossed byAJG. 01/25/2024 2:48 PM CDT DTL Interpretation FINAL DIAGNOSIS A. Colon, Random Sites, endoscopic biopsy: ??Colonic mucosa without diagnostic abnormality. ??No microscopic colitis. Digital imaging was used in the diagnostic assessment of this case. 01/25/2024 2:48 PM CDT DTL Biopsy (Colon) 01/24/2024 11 :25 AM CDT us Luc Pratt Jr., M.D. LAB SURG PATH ORDERAB LES Final Result Performing Organization Address City/State/[facility] Co de Phone Number [facility] [address] [place] [address], [facility] DTL [address] [facility] [address] [place] [address] * Colonoscopy (01/24/2024 11:00 AM CDT) 01/24/2024 11:0 0 AM CDT Impressions [facility] - 01/24/2024 11:38 AM CDT Post-op Diagnoses: ? - The examined portion of the ileum was normal. ? - The entire examined colon is normal. Biopsied. ? 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 rectum. Narrative [facility] - 01/24/2024 11:38 AM CDT Gonda 9 [...] preparation was ? evaluated using the BBPS ([place] Bowel Preparation Scale) with scores ? of: [...] ORDERABLES Fin al Result Performing Organization Address [facility]/ZIP Co de Phone Number [employer] NA * Colonoscopy-Gastroenterology Image Exam (01/24/2024 11:00 [...] PROCE DURES Final Result Performing Organization Address [facility] de Phone Number IINH NA * (ABNORMAL) Hemoglobin A1c (01/11/2024 9:21 [...] ADD-ON Final Resu lt Performing Organization Address [facility] Co de Phone Number [facility] [address] [facility] [address] [place] [address] * (ABNORMAL) Glucose, Fasting (01/11/2024 9:21 AM CDT) Glucose, P 113(H) 70 - 100 mg/dL 01/11/2024 10:03 AM CDT DTL Last Intake 15 hr 01/11/2024 9:44 AM CDT DTL Blood (Blood, Venous) 01/11/2024 9:21 AM CDT 01/11/2024 9:44 AM CDT Matt Montemayor M.D. LAB BLOOD NON ADD-ON Final Result Performing Organization Address [facility] de Phone Number [facility] [address] [facility] [address] [place] [address] * PSA (Prostate-Specific Antigen) Screen (01/11/2024 9:20 AM CDT) Pathologist [facility] Prostate-Specific Ag <0.10 <=7.2 ng/mL 01/11/2024 10:18 AM CDT DTL Comment: ----ADDITIONAL INFORMATION---- The testing method is an electrochemiluminescence assay manufactured by [employer] and performed on the Modular or [...] ADD-ON Final Resu lt Performing Organization Address [facility] Co de Phone Number [facility] [address] DTL [facility] [address] [place] [address] * Basic Metabolic Panel (01/11/2024 9:20 AM CDT) Potassium, S 4.3 3.6 - 5.2 mmol/L [...] M.D. LAB BLOOD ADD-ON Final Resu lt [facility] [address] [place] [address], [facility] DTL [facility] [address] [place] [address] from Last 3 Months Insurance [facility] BLUE SHIELD MEDICARE Advance Directives For more information, please contact: [phone] Documents on File Type Date Recorded Patient Brick Wheeler Expl anation Advance Directives 02/09/2022 11:26 AM RYAN Noel HCPOA/ADVOCATE/AGENT/REP RESENTATIVE/SURROGATE Healthcare Agents on File Name Relationship Healthcare Agent Relationshi p Communication RYAN Noel Spouse Health Care Agent Leticia Noel Daughter First Alternate Health Care Agent Care Teams Fuel Distribution System Operator Relationship Specialty Start Date End Date Matt Montemayor M.D. [address] [place] [address] PCP - General 12/11/21
--- OUTSIDE RECORDS SUMMARY | 2024-03-31 10:39 | XMS_ITS | Encounter Summary ---
Author Organization [facility] Address [address] [place] [address] Care Team Providers Care Clerk General Name Role Phone Matt Montemayor M.D. Primary Care Provider Reason for Visit * Reason Onset Date Comments Hip Pain 03/06/2024 Encounter Details Date Type Department Care Team (Late st Contact Info) Description 03/06/2024 Nurse Triage Division of Community Internal Medicine, [facility], in [place], [place] [address] [place] [address] Jeni Garduno R.N. Hip Pain Social History Tobacco Use Types Packs/Day Years Used Date Smoking Tobacco: Never Passive Smoke Exposure: Past Smokeless Tobacco: Never Alcohol Use Standard Drinks/Week Comments No 0 (1 standard drink = 0.6 oz pur e alcohol) occasional [facility] Utilities Answer Date Recorded In the past 12 months has [employer], gas, oil, or water [employer] threatened to shut off services in your [...] any clubs o r organizations such as sabianist groups, unions, fraternal or athletic groups, or [...] Answer Date Recorded PHQ-2 Score 0 01/11/2024 [facility] of Occupat ional Health - [...] your living situation today? I have a [facility] place to live 01/11/2024 Education Answer Date Recorded What is the highest level of school you have completed or the highest degree you have received? 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 - 03/06/2024 11:52 AM CDT Chief Complaint / Reason for Call Patient is a 83 y.o. male calling regarding Hip Pain. Assessment Concern: Left hip (Bursitis) worse than right hip. Right hip is getting worse. Has been attending physical therapy. Now bothering a great deal at night. Pain level today during the day with walking is 3/10. At night pain is so bad that can't sleep. Last two days pain down the leg. Physical therapy has helped with the left hip. Present for: the last month Home cares tried: once a week Physical Therapy, Tylenol, Bengay at times Calling to request: appointment The recommended disposition is See a health care provider within 24 hours (overriding See a health care provider within 4 hours). Caller was warm transferred to, Rosie, Patient Appointment Biometric Screener at the clinic for further assistance. and If clinic appointment is not available in the next 24 hours, caller is advised to be seen in emergency department Reason for Disposition [1] SEVERE pain (e.g., excruciating, unable to do any normal activities) AND [2] not improved after2 hours of pain medicine Protocols used: Hip Snta-[id number]-CG Care Advice Patient/Caregiver understands and will follow care advice?: Yes, able to teach back Hip Dzww-UUFHE-UP Nurse Jeni Newell Mar 06, 2024 11:57 AM Care Advice CALL BACK IF: * You become worse documented in this encounter Plan of Treatment Upcoming Encounters Date Type Department Care Team (Late st Contact Info) Description 04/03/2024 1:00 PM CDT Office Visit Division of Community Internal Medicine, [facility] in [place], [place] [address] [place] [address] Rena Golden APRN, C.N.P., M.S.N. [address] [place] [phone] documented as of this encounter Visit Diagnoses Not on filedocumented in this encounter Care Teams Clerk General Relationship Specialty Start Date End Date Matt Montemayor M.D. [address] [place] [phone] PCP - General 12/11/21 documented as of this encounter
--- OUTSIDE RECORDS SUMMARY | 2024-03-31 10:39 | XMS_ITS | Referral Summary ---
Author Organization [facility] Address [address] [place] [address] Care Team Providers Care Coal Wheeler Name Role Phone No Ref-Primary, Physician Primary [...] Mass Index - - Plan of Treatment Not on file Care Teams Coal Wheeler Relationship Specialty Start Date End Date No Ref-Primary, Physician PCP - General 02/22/23
--- OUTSIDE RECORDS SUMMARY | 2024-03-31 10:39 | XMS_ITS | Encounter Summary ---
Author Organization [facility] Address [address] [place] [address] Care Team Providers Care Metal Numerical Control Programmer Name Role Phone Matt Montemayor M.D. Primary Care Provider [phone] Reason for Visit * Reason Onset Date Comments Hip Pain 03/31/2024 Encounter Details Date Type Department Care Team (Late st Contact Info) Description 03/31/2024 Nurse Triage Division of Community Internal Medicine, [facility], in [place], [place] [address] [place] [address] Mary Yang, RCobyN. Hip Pain Social History Tobacco Use Types Packs/Day Years Used Date Smoking Tobacco: Never Passive Smoke Exposure: Past Smokeless Tobacco: Never Alcohol Use Standard Drinks/Week Comments No 0 (1 standard drink = 0.6 oz pur e alcohol) occasional [facility] Utilities Answer Date Recorded In the past 12 months has e [facility], gas, oil, or water [employer] threatened to shut off services in your [...] often do you attend chur ch or buddhist services? 1 to 4 times per year 10/11/2022 Do you belong to any clubs o r organizations such as yazidi groups, unions, fraternal or athletic groups, or [...] Answer Date Recorded PHQ-2 Score 0 01/11/2024 [facility] of Occupat ional Health - Occupational Stress [...] your living situation today? I have a [facility] place to live 01/11/2024 Education Answer Date Recorded What is the highest level of school you have completed or the highest degree you have received? 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 - 03/31/2024 9:28 AM CDT Chief Complaint / Reason for Call Patient is a 84 y.o. male calling regarding Hip Pain. Assessment Concern: R hip pain, cortisone 3 wks ago didn't help. It's been progressively worsening the last few wks. PT helping a little. Able to ambulate. Pain currently rated 8/10 w/ movement, at rest it's not bad. Present for: 6 wks Home cares tried: Tylenol ex strength, voltaren, Bengay, no NSAIDS tried Calling to request: appt today The recommended disposition is See a health care provider within 3 days. Explained to pt that visitcould wait until Tuesday vs using acute spot today. Patient was warm transferred toKeron, Patient Appointment Rn New Grad at the clinic for further assistance. Reason for Disposition [1] MODERATE pain (e.g., interferes with normal activities, limping) AND [2] present > 3 days Protocols used: Hip Vnti-PBTCL-AU Care Advice Patient/Caregiver understands and will follow care advice?: Yes, able to teach back Hip Vdma-UUEGX-QM Nurse Mary Sat Mar 31, 2024 09:34 AM Care Advice LOCAL HEAT: * Apply a warm wet washcloth or heating pad for 10 minutes three times daily. * This will help to increase circulation and improve healing. PAIN MEDICINES: * For pain relief, you can take either acetaminophen, ibuprofen, or naproxen. * They are pfhe-hxj-adyycrh (OTC) pain drugs. You can buy them at the drugstore. * ACETAMINOPHEN - REGULAR STRENGTH TYLENOL: Take 650 mg (two 325 mg pills) by mouth every 4 to 6 hours as needed. Each Regular Strength Tylenol pill has 325 mg of acetaminophen. The most you should take is 10 pills a day (3,250 mg total). Note: In [place], the maximum is 12 pills a day (3,900 mg total). * ACETAMINOPHEN - EXTRA STRENGTH TYLENOL: Take 1,000 mg (two 500 mg pills) every 6 to 8 hours as needed. Each Extra Strength Tylenol pill has 500 mg of acetaminophen. The most you should take is 6 pills a day (3,000 mg total). Note: In [place], the maximum is 8 pills a day (4,000 mg total). * IBUPROFEN (E.G., MOTRIN, ADVIL): Take 400 mg (two 200 mg pills) by mouth every 6 hours. The most you should take is 6 pills a day (1,200 mg total). * NAPROXEN (E.G., ALEVE): Take 220 mg (one 220 mg pill) by mouth every 8 to 12 hours as needed. Youmay take 440 mg (two 220 mg pills) for your first dose. The most you should take is 3 pills a day (660 mg total). Note: In [place], the maximum is 2 pills a day (one every 12 hours; 440 mg total). * Use the lowest amount of medicine that makes your pain better. CALL BACK IF: * Fever or severe pain occurs * Skin redness or a rash appears * You become worse documented in this encounter Plan of Treatment Upcoming Encounters Date Type Department Care Team (Late st [facility] Info) Description 04/03/2024 1:00 PM CDT Office Visit Division of Community Internal Medicine, [facility] in [place], [place] [address] [place] [phone] Rena Golden APRN, C.N.P., M.S.N. [address] [place] [phone] documented as of this encounter Visit Diagnoses Not on filedocumented in this encounter Care Teams Metal Numerical Control Programmer Relationship Specialty Start Date End Date Matt Montemayor M.D. [address] [place] [phone] PCP - General 12/11/21 documented as of this encounter
--- OUTSIDE RECORDS SUMMARY | 2024-03-31 10:39 | XMS_ITS | Encounter Summary ---
Author Organization [facility] Address [address] [place] [address] Care Team Providers Care Vice President And Portfolio Manager Name Role Phone Matt Montemayor M.D. Primary Care Provider Reason for Visit * Reason Onset Date Comments Contacts Complete 02/21/2024 Encounter Details Date Type Department Care Team (Latest Contact Info) Description 02/21/2024 Clinical Communication Division of Community Internal Medicine, [facility], in [place], [place] [address] [place] [phone] Matt Montemayor M.D. [address] [place] [phone] Contacts Complete Social History Tobacco Use Types Packs/Day Years Used Date Smoking Tobacco: Never Passive Smoke Exposure: Past Smokeless Tobacco: Never Alcohol Use Standard Drinks/Week Comments No 0 (1 standard drink = 0.6 oz pur e alcohol) occasional [facility] Utilities Answer Date Recorded In the [...] often do you attend chur ch or sikhism services? 1 to 4 times per year 10/11/2022 Do you belong to any clubs o r organizations such as lutheran groups, unions, fraternal or athletic groups, or [...] Answer Date Recorded PHQ-2 Score 0 01/11/2024 [facility] of Occupat ional Health - Occupational Stress [...] your living situation today? I have a [facility] place to live 01/11/2024 Education Answer Date Recorded What is the highest level of school you have completed or the highest degree you have received? 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 [address] [place] [phone] documented as of this encounter Visit Diagnoses Not on filedocumented in this encounter Additional Health Concerns Infection Onset Date Last Indicated Resolved Time COVID19 02/08/2024 02/08/2024 02/28/2024 5:55 AM CDT documented as of this encounter Care Teams Vice President And Portfolio Manager Relationship Specialty Start Date End Date Matt Montemayor M.D. [address] [place] [address] PCP - General 12/11/21 documented as of this encounter
--- OUTSIDE RECORDS SUMMARY | 2024-03-31 10:39 | XMS_ITS ---
Author Organization [facility] Address [address] [place] [address] Care Team Providers Care Lift Electrician Name Role Phone Unavailable Unavailable Unavailable Surgery Details Not on file Complications Check Surgery Details section. Procedure Estimated Blood Loss Check Surgery Details section. Procedure Findings Check Surgery Details section. Procedure Specimens Taken Check Surgery Details section.
--- OUTSIDE RECORDS SUMMARY | 2024-03-31 10:39 | XMS_ITS ---
Author Organization [facility] Address [address] [place] [address] Care Team Providers Care Compliance Field Technician Name Role Phone Matt Montemayor M.D. Primary Care Provider Active Problems Problem Noted Date Diagnosed Date [...] was 2021 with 3x pre-cancerous polyps (in [place]) -Tobacco use: Never -Lung Cancer Screening: Does [...] - Recheck Fasting glucose in three months Current Oncology Plans No current plan information found. Past Plans No past plan information found. Radiation Treatments * No radiation treatments are documented for this patient in [facility]. Treatments may have been administered in another system. Lifetime Dose Tracking * Chemical Lifetime Dose Automatic Entry Manual Entr y Radiation 117.4 mGy 117.4 mGy 0 mGy Fluoro Time 4.8 minutes 4.8 minutes 0 minutes
--- OUTSIDE RECORDS SUMMARY | 2024-03-31 10:39 | XMS_ITS | Encounter Summary ---
Author Organization [facility] Address [address] [place] [address] Care Team Providers Care Blender Conveyor Operator Name Role Phone Matt Montemayor M.D. Primary Care Provider [phone] Reason for Referral * Outpatient (Routine) - Authorized Specialty Diagnoses / Procedures Referred By Contac t Referred To Contact Diagnoses Pain Hip Right Procedures Large Joint Injection: R greater troch bursa Michael Singh M.D. [address] [place] [address] Phone: tel: fax: [facility] Referral ID Status Reason Start Date Expiration Date V isits Requested Visits Authorized [id number] Authorized 03/09/2024 03/09/2025 1 1 Reason for Visit * Reason Comments Injection Visit Right hip steroid in jection * Outpatient (Routine) - Closed Specialty Diagnoses / Procedures Referred By Contac t Referred To Contact Diagnoses Pain Hip Right Procedures CIM non-ultrasound guided aspiration/injection Dajuan Sheehan, EBONY, C.N.P., D.N.P. [address] [place] [address] Phone: tel: fax: [facility] Referral ID Status Reason Start Date Expiration Date Visits Re quested Visits Authorized [id number] Closed 03/06/2024 03/06/2025 1 1 Encounter Details Date Type Department Care Team (Late st Contact Info) Description 03/09/2024 10:15 AM CDT Procedure visit Division of Community Internal Medicine, [facility], in [place], [place] [address] [place] [address] Michael Singh M.D. [address] [place] [address] Pain Hip Right Social History Tobacco Use Types Packs/Day Years Used Date Smoking Tobacco: Never Passive Smoke Exposure: Past Smokeless Tobacco: Never Alcohol Use Standard Drinks/Week Comments No 0 (1 standard drink = 0.6 oz pur e alcohol) occasional [facility] Utilities Answer Date Recorded In the past 12 months has e electric, gas, oil, or water [employer] threatened to shut off services in your [...] often do you attend chur ch or restorationism services? 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 - 03/09/2024 10:15 AM CDTAssociated Order(s): Large Joint Injection: R greater troch bursa Post-Procedure Diagnose(s): Pain Hip Right Hip site - Right greater trochanteric bursa: injection only Performed by: Michael Singh M.D. Authorized by: Michael Singh M.D. PROCEDURE DETAILS Procedure Location hip Hip site - Right greater trochanteric bursa Site prep: patient was prepped and draped in usual sterile fashion Patient position: side-lying Procedural approach: lateral Procedure [...] completed successfully: yes Complications: no apparent complications documented in this encounter Plan of Treatment Upcoming Encounters Date Type Department Care Team (Late st Contact Info) Description 04/03/2024 1:00 PM CDT Office Visit Division of [facility] Internal Medicine, [facility], in [place], [place] [address] [place] [address] Rena Golden APRN, C.N.P., M.S.N. [address] [place] [address] documented as of this encounter Procedures Procedure Name Priority Date/Time Associated Diagnosis Comments [facility]CS ASP/INJ MJR JT WO US Routine 03/09/2024 10:15 AM CDT Pain Hip Right documented in this encounter Results * UT ARTHCS ASP/INJ MJR JT WO US (03/09/2024 [...] M.D. PROCEDURE/MINOR SURGICAL OR DERABLES Final Result MMODAL NA documented in this encounter Visit Diagnoses Diagnosis Pain Hip Right documented in this encounter Administered Medications Inactive Administered Medications - up to 3 most recent administrations Medication Order MAR Action Action Date Dose Rate Site BUPivacaine 0.5 % (5 mg/mL) injection 8 mL (Marcaine) 8 mL, injection, One-Time Injection, Starting on Tue03/09/24 at 1015, For 1 doseIndications:Pain Hip Right Given 03/09/2024 10:15 AM CDT 8 mL methylPREDNISolone acetate injection 40 mg (DEPO-MedroL) 40 mg, intra-articular, One-Time Injection, Starting on Tue03/09/24 at 1015, For 1 doseIndications:Pain Hip Right Given 03/09/2024 10:15 AM CDT 40 mg documented in this encounter Care Teams Blender Conveyor Operator Relationship Specialty Start Date End Date Matt Montemayor M.D. [address] [place] [address] PCP - General 12/11/21 documented as of this encounter
--- OUTSIDE RECORDS SUMMARY | 2024-03-31 10:40 | XMS_ITS | Encounter Summary ---
Author Organization [facility] Address [address] [place] [address] Care Team Providers Care Tire Service Technician Name Role Phone Matt Montemayor M.D. Primary Care Provider [phone] Reason for Referral * Outpatient (Routine) - Closed Specialty Diagnoses / Procedures Referred By Guicho mathis Referred To Contact Diagnoses Diarrhea Procedures Colonoscopy Matt Montemayor M.D. [address] [place] [address] Phone: tel: fax: [facility] Referral ID Status Reason Start Date Expiration Date Visits Re quested Visits Authorized [id number] Closed 01/11/2024 01/10/2025 1 1 * Physical Therapy (Routine) - Authorized Specialty Diagnoses / Procedures Referred By Guicho mathis Referred To Contact Diagnoses Trochanteric Bursitis Left Hip Matt Montemayor M.D. [address] [place] [address] Phone: tel: fax: Referral ID Status Reason Start Date Expiration Date Visits Requested Visits Authorized [id number] Authorized Patient Preference 01/11/2024 07/12/2025 99 99 * Outpatient (Routine) - Closed Specialty Diagnoses / Procedures Referred By Contac t Referred To Contact [facility] Internal Medicine Matt Montemayor M.D. [address] [place] [address] Phone: tel: fax: [facility] Referral ID Status Reason Start Date Expiration Date Visits Re quested Visits Authorized [id number] Closed 01/11/2024 07/12/2025 1 1 * Outpatient (Routine) - Authorized Specialty Diagnoses / Procedures Referred By Contdora t Referred To Contact [facility] Internal Medicine Matt Montemayor M.D. [address] [place] [address] Phone: tel: fax: [facility] Referral ID Status Reason Start Date Expiration Date V isits Requested Visits Authorized [id number] Authorized 01/11/2024 07/12/2025 1 1 Reason for Visit * Reason Comments Annual Exam * Appointment Request (Routine) - Closed Specialty Diagnoses / Procedures Referred By Contac t Referred To Contact [facility] Referral ID Status Reason Start Date Expiration Date Visits Re quested Visits Authorized [id number] Closed 08/08/2023 08/07/2024 1 1 Encounter Details Date Type Department Care Team (Late st Contact Info) Description 01/11/2024 3:30 PM CDT Office Visit Division of Community Internal Medicine, [facility] in [place], [place] [address] [place] [phone] Matt Montemayor M.D. [address] [place] [phone] PreDiabetes (Primary Dx); Trochanteric Bursitis Left Hip; Personal History Of Malignant Neoplasm Of Prostate; Diarrhea; Hypertension Essential Primary; Primary Malignant Neoplasm Of Prostate (HCC); Irritable Bowel Syndrome With Diarrhea Social History Tobacco Use Types Packs/Day Years Used Date Smoking Tobacco: Never Smokeless Tobacco: Never Alcohol Use Standard Drinks/Week Comments No 0 (1 standard drink = 0.6 oz pur e alcohol) occasional [facility] Utilities Answer Date Recorded In the [...] often do you attend chur ch or bahai services? 1 to 4 times per year 10/11/2022 Do you belong to any clubs o r organizations such as roman catholic groups, unions, fraternal or athletic groups, or [...] Date Recorded PHQ-2 Score 0 01/11/2024 [facility] - Occupational Stress Questionnaire Answer Date Recorded [...] living situation today? I have a [facility] place to live 01/11/2024 Education Answer Date Recorded What is the highest level of school you have completed or the highest degree you have received? 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 * Preparation Instructions for Your Colonoscopy ([place]) documented in this encounter Progress Notes * Jeni Gonzalez M.D., M.S. - 01/11/2024 3:30 PM CDT This is a supervisory note for Dr. Rosales Montemayor M.D. I participated in the boucher elements of the service and discussed the care of Salazar Noel with Dr. Rosales Montemayor M.D. including the history and assessment and plan and agree with the resident's findings and plan as documented in their note, dated 01/11/24. The patient is here to follow up in his multiple medical issues. Overall he is doing well, but unfortunately is suffering from some buttock pain which seems to be associated with piriformis syndrome,and some lateral hip pain which seems like it could be attributed to his trochanteric bursa. We will recommend physical therapy. We will also see if we can get a colonoscopy with random biopsies to assess for etiology of his chronic diarrhea. Rest of details per Dr. Rosales Montemayor M.D.. * Matt Montemayor M.D. - 01/11/2024 3:30 PM CDT SUPERVISED BY: Dr. Gonzalez SUBJECTIVE CHIEF COMPLAINT / REASON FOR VISIT Salazar Noel is a 83 y.o. male who presents for E HISTORY OF PRESENT ILLNESS #1 PreDiabetes #2 Trochanteric Bursitis Left Hip #3 Personal History Of Malignant Neoplasm Of Prostate #4 Diarrhea #5 Hypertension Essential Primary #6 Primary Malignant Neoplasm Of Prostate (HCC) #7 Irritable Bowel Syndrome With Diarrhea See A/P for HPI OBJECTIVE PHYSICAL EXAM BP 113/64 (BP Location: Right arm, Patient Position: Sitting, Cuff Size: Regular) Pulse 69 Wt 79 kg BMI 27.34 kg/m?? PHYSICAL EXAM General: Alert, oriented, sitting in exam chair in no acute distress Skin: No rashes or ulcers on examined skin Heart: Regular rate and rhythm. No murmurs, rubs, or gallops heard. Lungs: Clear to auscultation bilaterally Abdomen: Soft, active. No tenderness. No hepatosplenomegaly Neuro: Grossly intact strength and sensation. CN grossly intact. Gait stable. Mood: Pleasant, appropriate communication and interaction with staff. ASSESSMENT / PLAN #1 PreDiabetes Overview: Patient meet diagnostic criteria for prediabetes given fasting glucose elevated to 113 and HgbA1c elevated to 5.9. Lifestyle modification and reduce sugar intake have been implemented. Lab values arestable year over year. Assessment & Plan: - recheck A1c and fasting glucose next year Orders: - Hemoglobin A1c; Future; Expected date: 01/10/2025 - Basic Metabolic Panel; Future; Expected date: 01/10/2025 #2 Trochanteric Bursitis Left Hip Overview: Patient has been experiencing pain on his left hip during sleep that prevents him from lying on hisleft side. It is not exacerbated by activity (eg skiing, walking, etc.). He is not currently experiencing this pain. Assessment & Plan: - PT ordered - Follow up in 2 months, if not improved will recommend injection Orders: - External referral PT (non[place]) #3 Personal History Of Malignant Neoplasm Of Prostate - PSA (Prostate-Specific Antigen), Diagnostic; Future; Expected date: 01/10/2025 #4 Diarrhea - Colonoscopy; Future; Expected date: 01/11/2024 #5 Hypertension Essential Primary Overview: HTN diagnosis year: Prior to 2006 HTN stage: Stage I (130-139/80-89) - Initial HTN tests (CBC, BMP, TSH, EKG ) completed? Yes - values within normal limits Blood pressure readings: well controlled (goal 130/80) BP Readings from Last 3 Encounters: 10/11/22 128/72 03/02/22 131/84 02/04/22 121/73 Home blood pressure cuff validated : No Home blood pressure measurements: Unknown Current HTN regimen: Hyzaar (losartan-HCTZ) 100-12.5mg dialy Counseling regarding DASH diet, reduced alcohol intake, weight loss if needed, and 90-150 minutes of aerobic exercise weekly completed Prior medications trialed & discontinued with reasons why: Valsartan then Losartan monotherapy, unknown years Concerns for secondary hypertension: No Notes from 10/11/22: Blood pressure remains well controlled Assessment & Plan: Continue Hyzaar #6 Primary Malignant Neoplasm Of Prostate (HCC) Overview: Patient was noted to have a prostate [...] 2019 and remains undetectable today. Assessment & Plan: - rechecked diagnostic PSA annually #7 Irritable Bowel Syndrome With Diarrhea Overview: Patient has longstanding IBS-D. He states that he experiences symptoms of diarrhea approximately 2-4 times per week which include abdominal pain accompanied by urge that is relieved with BM. He has found that his symptoms are exacerbated by fried food. He has had 2 episodes of fecal incontinence over the last year His symptoms are not adequately controlled on loperamide. Assessment & Plan: - colonoscopy to evaluate for collagenous colitis or other causes of diarrhea - follow up in 2 months to discuss results Other orders - Community Internal Medicine office visit (clinic); Future; Expected date: 01/10/2025 - Community Internal Medicine office visit (clinic); Future; Expected date: 03/15/2024 - atorvastatin (Lipitor) 20 mg tablet; Take 1 tablet (20 mg total) by mouth daily., Starting Tue01/11/2024, Until Tue01/10/2025, Normal - losartan-hydroCHLOROthiazide (Hyzaar) 100-12.5 mg per tablet; Take 1 tablet by mouth daily., Starting Tue01/11/2024, Until Tue01/10/2025, Normal - omeprazole (PriLOSEC) [address] capsule; Take 1 capsule (40 mg total) by mouth daily before morning meal., Starting Tue01/11/2024, Until Tue01/10/2025, Normal - bisacodyL (Dulcolax) 5 mg EC tablet; Take 2 tablets (10 mg total) by mouth once for 1 dose. Take at 6 PM evening prior to colonoscopy, Starting 01/11/2024, Normal - polyethylene glycol (Miralax) 17 gram/dose oral powder; Drink 1st portion of prep at 6 PM the evening before. 2nd portion must be started 4 hours before and finished 2 hours prior to report time, Normal Goals for Next Visit: - follow up results of colonoscopy - consider injections for piriformis syndrome and trochanteric bursitis if PT is ineffective I spent a total of 45 minutes reviewing the patient's medical records and diagnostic tests, seeing the patient, speaking with the nursing team, placing the orders noted above, coordinating care, and/or documenting in the record documented in this encounter Miscellaneous Notes * Assessment & Plan Note - Matt Montemayor M.D. - 01/11/2024 5:58 PM CDT Associated Problem(s): Irritable Bowel Syndrome With Diarrhea - colonoscopy to evaluate for collagenous colitis or other causes of diarrhea - follow up in 2 months to discuss results * Assessment & Plan Note - Matt Montemayor M.D. - 01/11/2024 5:57 PM CDT Associated Problem(s): Primary Malignant Neoplasm Of Prostate (HCC) - rechecked diagnostic PSA annually * Assessment & Plan Note - Matt Montemayor M.D. - 01/11/2024 5:56 PM CDT Associated Problem(s): PreDiabetes - recheck A1c and fasting glucose next year * Assessment & Plan Note - Matt Montemayor M.D. - 01/11/2024 5:55 PM CDT Associated Problem(s): Hypertension Essential Primary Continue Hyzaar * Assessment & Plan Note - Matt Montemayor M.D. - 01/11/2024 5:55 PM CDT Associated Problem(s): Trochanteric Bursitis Left Hip - PT ordered - Follow up in 2 months, if not improved will recommend injection documented in this encounter Plan of Treatment Upcoming Encounters Date Type Department Care Team (Late st Contact Info) Description 04/03/2024 1:00 PM CDT Office Visit Division of Community Internal Medicine, [facility] in [place], [place] [address] [place] [address] Rena Golden APRN, C.N.P., M.S.N. [address] [place] [address] Scheduled Orders Name Type Priority Associated Diagnoses Orde r Schedule Hemoglobin A1c Lab Routine PreDiabetes Expected: 01/10/2025, Expires: 04/12/2025 Basic Metabolic Panel Lab Routine PreDiabetes Expected: 01/10/2025, Expires: 04/12/2025 PSA (Prostate-Specific Antigen), Diagnostic Lab Routine Personal History Of Malignant Neoplasm Of Prostate Expected: 01/10/2025, Expires: 04/12/2025 Scheduled Referrals Name Type Priority Associated Diagnoses Orde r Schedule Community Internal Medicine office visit (clinic) Outpatient Referral Routine Expected: 01/10/2025, Expires: 04/12/2025 Community Internal Medicine office visit (clinic) Outpatient Referral Routine Expected: 03/15/2024, Expires: 04/12/2025 documented as of this encounter Visit Diagnoses Diagnosis PreDiabetes- Primary Trochanteric Bursitis Left Hip Personal History Of Malignant Neoplasm Of Prostate Diarrhea Hypertension Essential Primary Primary Malignant Neoplasm Of Prostate (HCC) Irritable Bowel Syndrome With Diarrhea documented in this encounter Care Teams Tire Service Technician Relationship Specialty Start Date End Date Matt Montemayor M.D. [address] [place] [address] PCP - General 12/11/21 documented as of this encounter
--- OUTSIDE RECORDS SUMMARY | 2024-03-31 10:40 | XMS_ITS | Encounter Summary ---
Author Organization [facility] Address [address] [place] [address] Care Team Providers Care Strategic Account Manager Name Role Phone Matt Montemayor M.D. Primary Care Provider Reason for Visit * Reason Onset Date Comments COVID Treatment Review 02/09/2024 Encounter Details Date Type Department Care Team (Late st Contact Info) Description 02/09/2024 Clinical Communication Department of Family Medicine, [facility] ? [facility] in [place], [place] [address] [place] [address] Muna Fuentes R.N. [address] [place] [phone] COVID Treatment Review Social History Tobacco Use Types Packs/Day Years Used Date Smoking Tobacco: Never Smokeless Tobacco: Never Alcohol Use Standard Drinks/Week Comments No 0 (1 standard drink = 0.6 oz pur e alcohol) occasional [facility] Utilities Answer Date Recorded In the past 12 months has e electric, gas, oil, or water [employer] threatened to shut off services in your [...] often do you attend chur ch or caodaism services? 1 to 4 times per year 10/11/2022 Do you belong to any clubs o r organizations such as buddhist groups, unions, fraternal or athletic groups, or [...] Recorded PHQ-2 Score 0 01/11/2024 [facility] of Occupat ional Health - Occupational [...] your living situation today? I have a [facility] place to live 01/11/2024 Education Answer Date Recorded What is the highest level of school you have completed or the highest degree you have received? 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 - 02/09/2024 9:43 AM CDT [facility] Team Evaluation Reason for Call Patient was contacted regarding a recent positive test result for COVID-19. Patient is interested in being considered for treatment for COVID-19. Subjective Patient is currently having symptoms. Symptoms started within the last 5 days. Date of onset is 02/07/2024. Current symptoms include: cough (non-productive) and fatigue Objective Covid MASS Score: 5 Covid CAST Score: 6 Most recent GFR(last year): Lab Results Component Value Date/Time Estimated GFR (eGFR) 65 01/11/2024 09:20 AM Medication Review Medications to Take Different with Paxlovid: Atorvastatin Education Treatment Review: Paxlovid Paxlovid is an oral medication that stops the replication of the virus that causes COVID-19 and hasbeen shown to reduce the risk of hospitalization by 87%. Side effects that have been reported include abnormal taste, GI upset, and muscle aches. Serious reactions such as allergic reactions and liver failure are extremely uncommon. Patient instructed to contact their health care provider right away if they experience side effects. Patient instructed to take Paxlovid for 5 days. Given directions to vegetable picker and start the medication within 5 days of symptom onset. Isolation Instructed patient to stay home from work, school, or daycare until your symptoms are getting better overall AND fever free for 24 hours without the use of fever reducing medications. Continue to wear a face mask for 5 additional days (10 days if considered immunocompromised). When to seek emergency care: Instructed patient to seek emergency medical attention if experiencing severe symptoms. Severe symptoms may include new or increasing oxygen requirements, shortness of breath at rest, shortness of breath that limits walking short distances, chest pain (such as retrosternal or left sided chest pain,pain that radiates to the jaw or arm), and dizziness or lightheadedness that causes unsteadiness orinability to stand or walk. Plan Treatment/Monitoring Decisions: Paxlovid full dosing (eGFR 60 ml/min or more) Patient instructed toHOLD Atorvastatin for 8 days while taking Paxlovid. Day 1 is the first day taking Paxlovid. , Patient instructed to contact their insurance regarding costs of the medication. The patient could consider enrolling in the Paxlovid Co-Pay Program at www.[employer] if needed. , and The prescription(s)has been sent to [facility] in [place], [place]. Disposition/Recommendation:?protocol orders and recommended continue engagement in self-management activities Response to Education:?patient/caller able to teach back The following references were used: Nursing or provider judgement, [facility] workflow(s), guidelines, and protocols, [facility] Protocols.? . * Telephone Encounter - Muna Fuentes R.N. - 02/09/2024 9:32 AM CDT [facility] Team Evaluation Reason for Call Patient was contacted regarding a recent positive test result for COVID-19. Patient is unavailable at their listed phone number(s). Left a voicemail for patient and sent a portal message if possible. documented in this encounter Plan of Treatment Upcoming Encounters Date Type Department Care Team (Late st Contact Info) Description 04/03/2024 1:00 PM CDT Office Visit Division of Community Internal Medicine, [facility] in [place], [place] [address] [place] [address] Rena Golden, EBONY, C.N.P., M.S.N. [address] [place] [address] documented as of this encounter Visit Diagnoses Not on filedocumented in this encounter Additional Health Concerns Infection Onset Date Last Indicated Resolved Time COVID19 02/08/2024 02/08/2024 02/28/2024 5:55 AM CDT documented as of this encounter Care Teams Strategic Account Manager Relationship Specialty Start Date End Date Matt Montemayor M.D. [address] [place] [phone] PCP - General 12/11/21 documented as of this encounter
--- OUTSIDE RECORDS SUMMARY | 2024-03-31 10:40 | XMS_ITS | Encounter Summary ---
Author Organization [facility] Address [address] [place] [address] Care Team Providers Care Release Coordinator Name Role Phone Matt Montemayor M.D. Primary Care Provider [phone] Reason for Referral * Outpatient (Routine) - Authorized Specialty Diagnoses / Procedures Referred By Contac t Referred To Contact Diagnoses Irritable Bowel Syndrome With Diarrhea Incontinence Fecal Procedures Enema Prep Matt Montemayor M.D. [address] [place] [address] Phone: tel: fax: [facility] Referral ID Status Reason Start Date Expiration Date V isits Requested Visits Authorized [id number] Authorized 02/04/2024 02/03/2025 1 1 * Outpatient (Routine) - Authorized Specialty Diagnoses / Procedures Referred By Contac t Referred To Contact Diagnoses Irritable Bowel Syndrome With Diarrhea Incontinence Fecal Procedures Anorectal Manometry Matt Montemayor M.D. [address] [place] [address] Phone: tel: fax: [facility] Referral ID Status Reason Start Date Expiration Date V isits Requested Visits Authorized [id number] Authorized 02/04/2024 02/03/2025 1 1 * Outpatient (Routine) - Authorized Specialty Diagnoses / Procedures Referred By Contac t Referred To Contact Diagnoses Irritable Bowel Syndrome With Diarrhea Incontinence Fecal Procedures DX Abdomen 1 View Matt Montemayor M.D. [address] [place] [phone] Phone: tel: fax: [facility] Referral ID Status Reason Start Date Expiration Date V isits Requested Visits Authorized [id number] Authorized 02/04/2024 02/03/2025 1 1 * Outpatient (Routine) - Authorized Specialty Diagnoses / Procedures Referred By Contact Referred To Contact Gastroenterology and Hepatology Diagnoses Irritable Bowel Syndrome With Diarrhea Incontinence Fecal Matt Montemayor M.D. [address] [place] [address] Phone: tel: fax: [facility] Referral ID Status Reason Start Date Expiration Date V isits Requested Visits Authorized [id number] Authorized 02/04/2024 08/05/2025 1 1 Scheduling Instructions GIH consult should be scheduled after all testing Encounter Details Date Type Department Care Team (Latest Contact Info) Description 02/04/2024 Orders Only Division of Gastroenterology in [place], [place] [address] [place] [phone] Matt Montemayor M.D. [address] [place] [phone] Irritable Bowel Syndrome With Diarrhea (Primary Dx); Incontinence Fecal Social History Tobacco Use Types Packs/Day Years Used Date Smoking Tobacco: Never Smokeless Tobacco: Never Alcohol Use Standard Drinks/Week Comments No 0 (1 standard drink = 0.6 oz pur e alcohol) occasional C Utilities Answer Date Recorded In the past 12 months has [employer], gas, oil, or water company threatened to [...] week 10/11/2022 How often do you attend [facility] or latter day services? 1 to 4 times per year 10/11/2022 Do you belong to any clubs o r organizations such as faith groups, unions, fraternal or athletic groups, or [...] Answer Date Recorded PHQ-2 Score 0 01/11/2024 [facility] of Occupat ional Health - Occupational Stress [...] your living situation today? I have a [facility] place to live 01/11/2024 Education Answer Date Recorded What is the highest level of school you have completed or the highest degree you have received? 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 [address] [place] [address] Scheduled Orders Name Type Priority Associated Diagnoses Order Schedule DX Abdomen 1 View Imaging RAD - Routine (most inpatients and all outpatients) Irritable Bowel Syndrome With Diarrhea Incontinence Fecal Expected: 02/04/2024, Expires: 05/06/2025 Anorectal Manometry GI Routine Irritable Bowel Syndrome With Diarrhea Incontinence Fecal Expected: 02/04/2024, Expires: 05/06/2025 Enema Prep Procedures Routine Irritable Bowel Syndrome With Diarrhea Incontinence Fecal Expected: 02/04/2024, Expires: 05/06/2025 Scheduled Referrals Name Type Priority Associated Diagnoses Order Schedule Gastroenterology and Hepatology - Motility consult (clinic) Outpatient Referral Routine Irritable Bowel Syndrome With Diarrhea Incontinence Fecal Expected: 02/04/2024, Expires: 05/06/2025 documented as of this encounter Visit Diagnoses Diagnosis Irritable Bowel Syndrome With Diarrhea- Primary Incontinence Fecal documented in this encounter Care Teams Release Coordinator Relationship Specialty Start Date End Date Matt Montemayor M.D. [address] [place] [phone] PCP - General 12/11/21 documented as of this encounter
--- OUTSIDE RECORDS SUMMARY | 2024-03-31 10:40 | XMS_ITS | Encounter Summary ---
Author Organization [facility] Address [address] [place] [address] Care Team Providers Care Workers Compensation Coordinator Name Role Phone Matt Montemayor M.D. Primary Care Provider Encounter Details Date Type Department Care Team (Latest Contact Info) Description 01/24/2024 11:00 AM CDT Ancillary Procedure Department of Gastroenterology Social History Tobacco Use Types Packs/Day Years Used Date Smoking Tobacco: Never Smokeless Tobacco: Never Alcohol Use Standard Drinks/Week Comments No 0 (1 standard drink = 0.6 oz pur e alcohol) occasional [facility] Utilities Answer Date Recorded In the past 12 months has e electric, gas, oil, or water [employer] threatened to shut off services in your [...] friends, or neighbors? Twice a week 10/12/19 23 How often do you get togethe r with friends or relatives? Three times a week 10/11/2022 How often do you attend chur ch or anabaptism services? 1 to 4 times per year 10/11/2022 Do you belong to any clubs o r organizations such as restoration groups, unions, fraternal or athletic groups, or [...] Date Recorded PHQ-2 Score 0 01/11/2024 [facility] of Occupat ional Health - [...] your living situation today? I have a [facility] place to live 01/11/2024 Education Answer Date Recorded What is the highest level of school you have completed or the highest degree you have received? 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 [address] [place] [address] documented as of this encounter Procedures Procedure Name Priority Date/Time Associated Diagnosis Comments GASTROENTEROLOGY IMAGE EXAM Routine 01/24/2024 11:00 AM CDT documented in this encounter Results * Colonoscopy-Gastroenterology Image Exam (01/24/2024 11:00 AM CDT) 01/24/2024 11:0 0 AM CDT Narrative [facility] - 01/24/2024 11:42 AM CDT This order has been created and auto-finalized to support the import of images acquired without order. The clinical documentation to support these images can be found on the encounter that produced images. us Provider Not In System IMG NON RAD IMAGING PROCE DURES Final Result [facility] NA documented in this encounter Visit Diagnoses Not on filedocumented in this encounter Care Teams Workers Compensation Coordinator Relationship Specialty Start Date End Date Matt Montemayor M.D. [address] [place] [address] PCP - General 12/11/21 documented as of this encounter
--- OUTSIDE RECORDS SUMMARY | 2024-03-31 10:40 | XMS_ITS | Encounter Summary ---
Author Organization [facility] Address [address] [place] [address] Care Team Providers Care Derivatives Trader Name Role Phone Matt Montemayor M.D. Primary Care Provider Reason for Visit * Reason Onset Date Comments Results 02/02/2024 Encounter Details Date Type Department Care Team (Late st Contact Info) Description 02/02/2024 Clinical Communication Division of Community Internal Medicine, [facility], in [place], [place] [address] [place] [phone] Matt Montemayor M.D. [address] [place] [phone] Results Social History Tobacco Use Types Packs/Day Years Used Date Smoking Tobacco: Never Smokeless Tobacco: Never Alcohol Use Standard Drinks/Week Comments No 0 (1 standard drink = 0.6 oz pur e alcohol) occasional [facility] Utilities Answer Date Recorded In the [...] often do you attend chur ch or alevism services? 1 to 4 times per year 10/11/2022 Do you belong to any clubs o r organizations such as orthodox groups, unions, fraternal or athletic groups, or [...] Answer Date Recorded PHQ-2 Score 0 01/11/2024 [facility] of Occupat ional Health - Occupational Stress [...] your living situation today? I have a [facility] place to live 01/11/2024 Education Answer Date Recorded What is the highest level of school you have completed or the highest degree you have received? 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 [address] [place] [phone] documented as of this encounter Visit Diagnoses Not on filedocumented in this encounter Additional Health Concerns Infection Onset Date Last Indicated Resolved Time COVID19 02/08/2024 02/08/2024 02/28/2024 5:55 AM CDT documented as of this encounter Care Teams Derivatives Trader Relationship Specialty Start Date End Date Matt Montemayor M.D. [address] [place] [phone] PCP - General 12/11/21 documented as of this encounter
--- OUTSIDE RECORDS SUMMARY | 2024-03-31 10:40 | XMS_ITS | Encounter Summary ---
Author Organization [facility] Address [address] [place] [address] Care Team Providers Care Supervisor [employer] Name Role Phone Matt Montemayor M.D. Primary Care Provider [phone] Reason for Referral * Outpatient (Routine) - Authorized Specialty Diagnoses / Procedures Referred By Contac t Referred To Contact Diagnoses Trochanteric Bursitis Left Hip Procedures CIM non-ultrasound guided aspiration/injection Napoleon Woo M.D. [address] [place] [address] Phone: tel: fax: [facility] Referral ID Status Reason Start Date Expiration Date V isits Requested Visits Authorized [id number] Authorized 02/17/2024 02/16/2025 1 1 * Physical Therapy (Routine) - Authorized Specialty Diagnoses / Procedures Referred By Contac t Referred To Contact Diagnoses Pain Buttock Napoleon Woo M.D. [address] [place] [address] Phone: tel: fax: Referral ID Status Reason Start Date Expiration Date Visits Requested Visits Authorized [id number] Authorized Patient Preference 02/17/2024 08/18/2025 99 99 Reason for Visit * Reason Comments Follow-up Trochanteric Bursiti s (L) Piriformis Syndrome (R) * Outpatient (Routine) - Closed Specialty Diagnoses / Procedures Referred By Guicho mathis Referred To Contact [facility] Matt Montemayor M.D. [address] [place] [address] Phone: tel: fax: [facility] Referral ID Status Reason Start Date Expiration Date Visits Re quested Visits Authorized [id number] Closed 01/11/2024 07/12/2025 1 1 Encounter Details Date Type Department Care Team (Late st Contact Info) Description 02/17/2024 9:50 AM CDT Office Visit Division of [facility] Internal Medicine, [facility] in [place], [place] [address] [place] [address] Napoleon Woo M.D. [address] [place] [phone] Trochanteric Bursitis Left Hip (Primary Dx); Pain Buttock; Irritable Bowel Syndrome With Diarrhea; Piriformis Syndrome Right; Allergy Bee Sting Initial Social History Tobacco Use Types Packs/Day Years Used Date Smoking Tobacco: Never Passive Smoke Exposure: Past Smokeless Tobacco: Never Alcohol Use Standard Drinks/Week Comments No 0 (1 standard drink = 0.6 oz pur e alcohol) occasional [facility] Utilities Answer Date Recorded In the past 12 months has [facility] [employer], gas, oil, or water [employer] threatened to shut off services in your [...] any clubs o r organizations such as cheondoism groups, unions, fraternal or athletic groups, or [...] Answer Date Recorded PHQ-2 Score 0 01/11/2024 [facility] Occupat ional [facility] - Occupational Stress Questionnaire Answer Date [...] your living situation today? I have a [facility] place to live 01/11/2024 Education Answer Date Recorded What is the highest level of school you have completed or the highest degree you have received? Bachelor's degree (e.g., BA, AB, BS) 10/11/2022 Sex and Gender Information Value Date Recorded Sex Assigned at Male 10/02/2018 11:29 AM CDT Legal Sex Male 2:46 PM [employer] Gender Identity Male 10/02/2018 11:29 AM CDT Sexual Orientation Straight 10/02/2018 11 :29 AM CDT documented as of this encounter Last Filed Vital Signs Vital Sign Reading Time Taken Comments Blood Pressure 116/68 02/17/2024 9:32 AM CDT Pulse 69 02/17/2024 9:32 AM CDT Temperature - - Respiratory Rate - - Oxygen Saturation - - Inhaled Oxygen Concentration - - Weight 76.8 kg (169 lb 5 oz) 02/17/2024 9:32 AM CDT Height - - Body Mass Index 26.57 01/24/2024 10:18 AM CDT documented in this encounter Patient Instructions * Patient Instructions* Napoleon Woo M.D. - 02/17/2024 9:50 AM CDT Irritable Bowel Syndrome: I would recommend to additional interventions for your diarrhea. Would recommend taking Metamucil or Citrucel daily to provide fiber for bulking up stool. If bloating is a problem, Citrucel is a better option. Would also recommend trying enteric-coated peppermint oil tablets. The dosage examined in studies is 200 mg 3 times a day. You do not necessarily have to take it this frequently, but I would encourage trialing it. You can get the supplement from [employer] or at your local drug stores. Bee Stings: Regarding her bee stings, I would recommend taking Zyrtec as needed instead of Benadryl. You can also use ice/heat. Trochanteric Bursitis: I have ordered a steroid injection for your left trochanteric bursa. Right Buttock Pain: I have provided a prescription for pelvic physical therapy for possible piriformis syndrome. documented in this encounter Progress Notes * Ingrid Greenberg M.D. - 02/17/2024 9:50 AM CDT I reviewed the case in detail with Dr. Woo. Please see the note for further details. I agree with the plan of care. Patient is here to follow-up on hip and buttock pain which has improved some with PT. Will continuewith conservative measures and consider injection in a couple weeks if still bothersome. Also discussed some ways of trying to improve his GI symptoms from IBS. Remainder as per Dr. Woo. * Napoleon Woo M.D. - 02/17/2024 9:50 AM CDT SUPERVISED BY: Dr. Greenberg SUBJECTIVE CHIEF COMPLAINT / REASON FOR VISIT Salazar Noel is a 83 y.o. male who presents for follow-up of several comorbidities. HISTORY OF PRESENT ILLNESS Diagnosis Overview 1. Irritable Bowel Syndrome With Diarrhea Patient has longstanding IBS-D. He states that he experiences symptoms of diarrhea approximately 2-4 times per week which include abdominal pain accompanied by urge that is relieved with BM. He has found that his symptoms are exacerbated by fried food. He has had 2 episodes of fecal incontinence over the last year His symptoms are not adequately controlled on loperamide. [facility] 02/17/2024: Mr. Noel inquired into additional medications for his IBS, as he occasionally gets fecal incontinence from his episodes of diarrhea. 2. Trochanteric Bursitis Left Hip - Primary Patient has been experiencing pain on his left hip during sleep that prevents him from lying on hisleft side. It is not exacerbated by activity (eg skiing, walking, etc.). He is not currently experiencing this pain. Plan was for several weeks of PT and then reassessment. [facility] 02/17/2024: Mr. Noel presents today for follow-up of left trochanteric bursitis after undergoing several sessions of PT. He feels his symptoms are still present, but improved compared to last visit. 3. Piriformis Syndrome Right 4. Pain Buttock Mr. Noel follows up today (02/17/2024) for possible right piriformis syndrome. He denies any radiation of pain down his leg but does have intermittent right buttock pain. He was given a script for physical therapy at his last visit, but the prescription only included his left hip and night right buttock. 5. Allergy Bee Sting Initial Mr. Noel was stung by two bees several days ago on his left middle finger and neck. He developed significant swelling at the sites of both stings. His symptoms have rapidly improved with benadryl and ice. OBJECTIVE PHYSICAL EXAM BP 116/68 (BP Location: Right arm, Patient Position: Sitting, Cuff Size: Regular) Pulse 69 Wt 76.8 kg BMI 26.57 kg/m?? General: Patient is no apparent distress., well-groomed, and sitting in bed.. Skin/MSK: Edematous left middle finger and localized swelling over anterior neck. Left trochantericbursa tender. ASSESSMENT / PLAN #1 Trochanteric Bursitis Left Hip Assessment & Plan: Mr. Noel has moderate success with physical therapy. Due to persistence of symptoms, I will referhim for a left trochanteric injection to further help with symptoms. Orders: - CIM non-ultrasound guided aspiration/injection; Future; Expected date: 02/17/2024 #2 Pain Buttock Assessment & Plan: Symptoms mildly improved with time. I have provided an additional PT script so that he can get specific pelvic exercises. Orders: - External referral PT (non-[place]) #3 Irritable Bowel Syndrome With Diarrhea Assessment & Plan: Prescribed Citrucel and recommended enteric coated peppermint oil to see if these aid in his symptoms. He declined a GI referral at this time. Orders: - methylcellulose, with sugar, oral powder; Take 2 g (1 Dose total) by mouth daily., Starting 02/17/2024, Normal #4 Piriformis Syndrome Right #5 Allergy Bee Sting Initial Assessment & Plan: Physical exam confirms significant local reaction to bee stings. Given rapid improvement, no further interventions needed at this time. Recommended patient switch to Zyrtec over benadryl given less sedating properties. Otherwise recommended PRN ice/heat. Other orders - [facility] office visit (clinic) Irritable Bowel Syndrome: I would recommend to additional interventions for your diarrhea. Would recommend taking Metamucil or Citrucel daily to provide fiber for bulking up stool. If bloating is a problem, Citrucel is a better option. Would also recommend trying enteric-coated peppermint oil tablets. The dosage examined in studies is 200 mg 3 times a day. You do not necessarily have to take it this frequently, but I would encourage trialing it. You can get the supplement from [employer] or at your local drug stores. Bee Stings: Regarding her bee stings, I would recommend taking Zyrtec as needed instead of Benadryl. You can also use ice/heat. Trochanteric Bursitis: I have ordered a steroid injection for your left trochanteric bursa. Right Buttock Pain: I have provided a prescription for pelvic physical therapy for possible piriformis syndrome. I spent a total of 40 minutes reviewing the patient's medical records and diagnostic tests, seeing the patient, speaking with the nursing team, placing the orders noted above, coordinating care, and/or documenting in the record documented in this encounter Miscellaneous Notes * Assessment & Plan Note - Napoleon Woo M.D. - 02/18/2024 6:50 AM CDT Associated Problem(s): Irritable Bowel Syndrome With Diarrhea Prescribed Citrucel and recommended enteric coated peppermint oil to see if these aid in his symptoms. He declined a GI referral at this time. * Assessment & Plan Note - Napoleon Woo M.D. - 02/18/2024 6:48 AM CDT Associated Problem(s): Allergy Bee Sting Initial Physical exam confirms significant local reaction to bee stings. Given rapid improvement, no further interventions needed at this time. Recommended patient switch to Zyrtec over benadryl given less sedating properties. Otherwise recommended PRN ice/heat. * Assessment & Plan Note - Napoleon Woo M.D. - 02/18/2024 6:46 AM CDT Associated Problem(s): Pain Buttock Symptoms mildly improved with time. I have provided an additional PT script so that he can get specific pelvic exercises. * Assessment & Plan Note - Napoleon Woo M.D. - 02/18/2024 6:44 AM CDT Associated Problem(s): Trochanteric Bursitis Left Hip Mr. Noel has moderate success with physical therapy. Due to persistence of symptoms, I will referhim for a left trochanteric injection to further help with symptoms. documented in this encounter Plan of Treatment Upcoming Encounters Date Type Department Care Team (Late st Contact Info) Description 04/03/2024 1:00 PM CDT Office Visit Division of [facility] Internal Medicine, [facility] in [place], [place] [address] [place] [address] Rena Golden APRN, C.N.P., M.S.N. [address] [place] [address] Scheduled Orders Name Type Priority Associated Diagnoses Orde r Schedule CIM non-ultrasound guided aspiration/injection Procedures Routine Trochanteric Bursitis Left Hip Expected: 02/17/2024, Expires: 05/25/2024 documented as of this encounter Visit Diagnoses Diagnosis Trochanteric Bursitis Left Hip- Primary Pain Buttock Irritable Bowel Syndrome With Diarrhea Piriformis Syndrome Right Allergy Bee Sting Initial documented in this encounter Additional Health Concerns Infection Onset Date Last Indicated Resolved Time COVID19 02/08/2024 02/08/2024 02/28/2024 5:55 AM CDT documented as of this encounter Care Teams Supervisor [employer] Relationship Specialty Start Date End Date Matt Montemayor M.D. [address] [place] [address] PCP - General 12/11/21 documented as of this encounter
--- OUTSIDE RECORDS SUMMARY | 2024-03-31 10:40 | XMS_ITS | Encounter Summary ---
Author Organization [facility] Address [address] [place] [address] Care Team Providers Care Traffic Analyst Name Role Phone Matt Montemayor M.D. Primary Care Provider Encounter Details Date Type Department Care Team (Latest Contact Info) Description 01/11/2024 9:10 AM CDT - 01/11/2024 11:59 PM CDT Hospital Encounter Department of Laboratory Medicine and Pathology, [facility], in [place], [place] [address] [place] [address] Matt Montemayor M.D. [address] [place] [address] Screening Examination Diabetes Mellitus; Monitoring For Therapeutic Drug Therapy; General Medical Examination Adult Discharge Disposition: Home or Self Care Social History Tobacco Use Types Packs/Day Years Used Date Smoking Tobacco: Never Smokeless Tobacco: Never Alcohol Use Standard Drinks/Week Comments No 0 (1 standard drink = 0.6 oz pur e alcohol) occasional [facility] Utilities Answer Date Recorded In the past 12 months has e [employer], gas, oil, or water [employer] threatened to shut off services in your [...] often do you attend chur ch or jainism services? 1 to 4 times per year 10/11/2022 Do you belong to any clubs o r organizations such as rastafarian groups, unions, fraternal or athletic groups, or [...] Answer Date Recorded PHQ-2 Score 0 01/11/2024 [facility] [place] of Occupat ional Health - Occupational Stress [...] your living situation today? I have a [facility] place to live 01/11/2024 Education Answer Date Recorded What is the highest level of school you have completed or the highest degree you have received? Bachelor's degree (e.g., BA, AB, BS) 10/11/2022 Sex and Gender Information Value Date Recorded Sex Assigned at Male 10/02/2018 11:29 AM CDT Legal Sex Male 2:46 PM [employer]WORK [employer] Gender Identity Male 10/02/2018 11:29 AM CDT Sexual Orientation Straight 10/02/2018 11 :29 AM CDT documented as of this encounter Medications at Time of Discharge acetaminophen (TYLENOL) 500 mg tablet Take 2 tablets by mouth as needed. pain 05/07/2015 atorvastatin (Lipitor) 20 mg tablet Take 1 tablet (20 mg total) by mouth daily. 90 tablet 3 01/11/2024 diphenhydrAMINE (BENADRYL) 25 mg tablet Take 25 mg by mouth at bedtime as needed for sleep. loperamide (IMODIUM) 2 mg capsule Take 2 capsules by mouth daily. 09/30/2016 losartan-hydroCH LOROthiazide (Hyzaar) 100-12.5 mg per tablet Take 1 tablet by mouth daily. 90 tablet 3 01/11/2024 NON FORMULARY Apply topically 2 (two) times a day. Med Name: Target Brand Ultra Healing Lotion omeprazole (PriLOSEC) [address] capsule Take 1 capsule (40 mg total) by mouth daily before morning meal. 90 capsule 3 01/11/2024 5 triamcinolone (NASACORT) 55 mcg/actuation nasal spray Administer 2 sprays into affected nostril(s) daily. each nostril, for congestion 05/07/2015 polyethylene glycol (Miralax) 17 gram/dose oral powder Drink 1st portion of prep at 6 PM the evening before. 2nd portion must be started 4 hours before and finished 2 hours prior to report time 238 g 01/11/2024 4 documented as of this encounter Plan of Treatment Upcoming Encounters Date Type Department Care Team (Late st Contact Info) Description 04/03/2024 1:00 PM CDT Office Visit Division of [facility] Internal Medicine, [facility], in [place], [place] [address] [place] [phone] Rena Golden, EBONY, C.N.P., M.S.N. [address] [place] [address] documented as of this encounter Procedures Procedure Name Priority Date/Time Associated Diagnosis Comments HEMOGLOBIN A1C, B Routine 01/11/2024 9:2 1 AM CDT General Medical Examination Adult GLUCOSE, FASTING, S/P Routine 01/11/2024 9:21 AM CDT Screening Examination Diabetes Mellitus PROSTATE-SPECIFIC AG (PSA) SCRN, S Routine 01/11/2024 9:20 AM CDT General Medical Examination Adult BASIC METABOLIC PANEL, S/P Routine 01/11/2024 9:20 AM CDT Monitoring For Therapeutic Drug Therapy documented in this encounter Results * (ABNORMAL) Hemoglobin A1c (01/11/2024 9:21 AM [...] ADD-ON Final Resu lt Performing Organization Address [facility]/ZIP Co de Phone Number [address] [place] [address] * (ABNORMAL) Glucose, Fasting (01/11/2024 9:21 AM CDT) Pathologist [facility] Glucose, P 113(H) 70 - 100 mg/dL 01/11/2024 10:03 AM CDT DTL Last Intake 15 hr 01/11/2024 9:44 AM CDT DTL Blood (Blood, Venous) 01/11/2024 9:21 AM CDT 01/11/2024 9:44 AM CDT Matt Montemayor M.D. LAB BLOOD NON ADD-ON Final Result Performing Organization Address City/[facility]/ZIP Co de Phone Number [address] [place] [address] * PSA (Prostate-Specific Antigen) Screen (01/11/2024 9:20 AM CDT) Pathologist [facility] Prostate-Specific Ag <0.10 <=7.2 ng/mL 01/11/2024 [...] M.D. LAB BLOOD ADD-ON Final Resu lt [facility] [address] [place] [address], [facility] [address] [place] [address] * Basic Metabolic Panel (01/11/2024 9:20 AM CDT) [facility] Potassium, S 4.3 3.6 - 5.2 mmol/L [...] M.D. LAB BLOOD ADD-ON Final Resu lt [facility] [address] DTL [facility] [address] [place] [address] documented in this encounter Visit Diagnoses Diagnosis Screening Examination Diabetes Mellitus Monitoring For Therapeutic Drug Therapy General Medical Examination Adult documented in this encounter Care Teams Traffic Analyst Relationship Specialty Start Date End Date Matt Montemayor M.D. [address] [place] [address] PCP - General 12/11/21 documented as of this encounter
--- OUTSIDE RECORDS SUMMARY | 2024-03-31 10:40 | XMS_ITS | Encounter Summary ---
Author Organization [facility] Address [address] [place] [address] Care Team Providers Care Wine Master Name Role Phone Matt Montemayor M.D. Primary Care Provider Reason for Visit * Reason Onset Date Comments External Lab Entry 02/08/2024 Encounter Details Date Type Department Care Team (Latest Contact Info) Description 02/08/2024 Clinical Communication Division of [facility], [facility], in [place], [place] [address] [place] [phone] Matt Montemayor M.D. [address] [place] [address] External Lab Entry Social History Tobacco Use Types Packs/Day Years Used Date Smoking Tobacco: Never Smokeless Tobacco: Never Alcohol Use Standard Drinks/Week Comments No 0 (1 standard drink = 0.6 oz pur e alcohol) occasional [facility] Utilities Answer Date Recorded In the past [...] often do you attend chur ch or confucianism services? 1 to 4 times per year 10/11/2022 Do you belong to any clubs o r organizations such as congregational groups, unions, fraternal or athletic groups, or [...] Answer Date Recorded PHQ-2 Score 0 01/11/2024 [facility] [place] of Occupat ional Health - Occupational Stress [...] your living situation today? I have a [facility] place to live 01/11/2024 Education Answer Date Recorded What is the highest level of school you have completed or the highest degree you have received? 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 - 02/09/2024 9:22 AM CDT MASS of 5, high risk, patient will be contacted by [facility] for treatment evaluation. documented in this encounter Plan of Treatment Upcoming Encounters Date Type Department Care Team (Late st Contact Info) Description 04/03/2024 1:00 PM CDT Office Visit Division of [facility] Internal Medicine, [facility], in [place], [place] [address] [place] [address] Rena Golden APRN, C.N.P., M.S.N. [address] [place] [address] documented as of this encounter Visit Diagnoses Not on filedocumented in this encounter Additional Health Concerns Infection Onset Date Last Indicated Resolved Time COVID19 02/08/2024 02/08/2024 02/28/2024 5:55 AM CDT documented as of this encounter Care Teams Wine Master Relationship Specialty Start Date End Date Matt Montemayor M.D. [address] [place] [address] PCP - General 12/11/21 documented as of this encounter
--- OUTSIDE RECORDS SUMMARY | 2024-03-31 10:40 | XMS_ITS | Encounter Summary ---
Author Organization [facility] Address [address] [place] [address] Care Team Providers Care Goldsmith Apprentice Name Role Phone Matt Montemayor M.D. Primary Care Provider Reason for Referral * Outpatient (Routine) - Closed Specialty Diagnoses / Procedures Referred By Guicho mathis Referred To Contact Diagnoses Diarrhea Procedures Colonoscopy Matt Montemayor M.D. [address] [place] [address] Phone: tel: fax: [facility] Referral ID Status Reason Start Date Expiration Date Visits Re quested Visits Authorized [id number] Closed 01/11/2024 01/10/2025 1 1 Reason for Visit * Outpatient (Routine) - Closed Specialty Diagnoses / Procedures Referred By Guicho mathis Referred To Contact Diagnoses Diarrhea Procedures Colonoscopy Matt Montemayor M.D. [address] [place] [address] Phone: tel: fax: [facility] Referral ID Status Reason Start Date Expiration Date Visits Re quested Visits Authorized [id number] Closed 01/11/2024 01/10/2025 1 1 Encounter Details Date Type Department Care Team (Latest Contact Info) Description 01/24/2024 9:50 AM CDT - 01/24/2024 11:59 PM CDT Hospital Encounter Division of Gastroenterology in [place], [place] [address] [place] [address] Matt Montemayor M.D. [address] [place] [address] Diarrhea Discharge Disposition: Home or Self Care Social History Tobacco Use Types Packs/Day Years Used Date Smoking Tobacco: Never Smokeless Tobacco: Never Tobacco Cessation:Counseling Given: Not Answered Alcohol Use Standard Drinks/Week Comments No 0 (1 standard drink = 0.6 oz pur e alcohol) occasional [facility] Utilities Answer Date Recorded In the past 12 months has e [employer], gas, oil, or water company threatened to [...] often do you attend chur ch or tenriism services? 1 to 4 times per year 10/11/2022 Do you belong to any clubs o r organizations such as confucianist groups, unions, fraternal or athletic groups, or [...] Answer Date Recorded PHQ-2 Score 0 01/11/2024 [facility] of Occupat ional Health - Occupational Stress [...] your living situation today? [facility] 01/11/2024 Education Answer Date Recorded What is the highest level of school you have completed or the highest degree you have received? 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 [employer] Gender Identity Male 10/02/2018 11:29 AM CDT Sexual Orientation Straight 10/02/2018 11 :29 AM CDT documented as of this encounter Last Filed Vital Signs Vital Sign Reading Time Taken Comments Blood Pressure 115/65 01/24/2024 11:47 AM CDT Pulse 59 01/24/2024 11:47 AM CDT Temperature 36.7 ??C (98.1 ??F) 01/24/2024 11:39 AM C DT Respiratory Rate 9 01/24/2024 11:47 AM CDT Oxygen Saturation 98% 01/24/2024 11:47 AM CDT Inhaled Oxygen Concentration - - Weight 79 kg (174 lb 2.6 oz) 01/24/2024 10:18 AM CDT Height 170 cm (5' 6.93) 01/24/2024 10:18 AM CDT Body Mass Index 27.34 01/24/2024 10:18 AM CDT documented in this encounter Medications at Time of Discharge acetaminophen (TYLENOL) 500 mg tablet Take 2 tablets by mouth as needed. pain 05/07/2015 atorvastatin (Lipitor) 20 mg tablet Take 1 tablet (20 mg total) by mouth daily. 90 tablet 3 01/11/2024 5 diphenhydrAMINE (BENADRYL) 25 mg tablet Take 25 mg by mouth at bedtime as needed for sleep. loperamide (IMODIUM) 2 mg capsule Take 2 capsules by mouth daily. 09/30/2016 losartan-hydroCH LOROthiazide (Hyzaar) 100-12.5 mg per tablet Take 1 tablet by mouth daily. 90 tablet 3 01/11/2024 5 NON FORMULARY Apply topically 2 (two) times a day. Med Name: Target Brand Ultra Healing Lotion omeprazole (PriLOSEC) [address] capsule Take 1 capsule (40 mg total) by mouth daily before morning meal. 90 capsule 3 01/11/2024 triamcinolone (NASACORT) 55 mcg/actuation nasal spray Administer 2 sprays into affected nostril(s) daily. each nostril, for congestion 05/07/2015 documented as of this encounter H&P Notes * Luc Pratt Jr., M.D. 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 SHOULDER ARTHROSCOPY DISTAL CLAVICLE EXCISION AND OPEN ROTATOR CUFF REPAIR Left Social History Socioeconomic History Marital status: Highest education level: Bachelor's degree (e.g., BA, AB, BS) Tobacco Use Smoking status: Never Smokeless tobacco: Never Vaping Use Vaping status: never used Substance and Sexual Activity Alcohol use: No Comment: occasional Drug use: No Sexual activity: Not Currently Partners: Female control/protection: None OBJECTIVE Weight: 79 kg Pain Score: 0 - No pain Consents Obtained: written The benefits, risks and alternatives of sedation or anesthesia, as well as the names, roles, and responsibilities of the healthcare team members, were discussed with the patient and/or decision maker: yes Procedure / Reason for visit: The planned surgery or procedure was verified with the patient and/ordecision maker The following portions of the patient's history were reviewed and updated as appropriate: allergies, current medications, family history, medical history, surgical history, social history and problemlist. yes Review of systems: pertinent ROS negative Mallampati: I - soft palate, uvula, fauces, pillars visible Heart: normal Lung: normal General / Constitutional: normal ASA physical exam: Class 2 - patient with mild systemic disease Patient seen, evaluated and approved for sedation Sedation plan: moderate sedation Baseline Behavior: Psychosocial (WDL): Within Defined Limits Abdominal Exam: Abdomen Inspection: Soft, Flat documented in this encounter Plan of Treatment Upcoming Encounters Date Type Department Care Team (Late st Contact Info) Description 04/03/2024 1:00 PM CDT Office Visit Division of [facility], [facility], in [place], [place] [address] [place] [phone] Rena Golden APRN, C.N.P., M.S.N. [address] [place] [address] documented as of this encounter Procedures Procedure Name Priority Date/Time Associated Diagnosis Comments SURGICAL PATHOLOGY Routine 01/24/2024 11 :25 AM CDT COLONOSCOPY Routine 01/24/2024 11:00 AM CDT Diarrhea COLONOSCOPY Routine 01/24/2024 11:00 AM CDT Diarrhea documented in this encounter Results * Surgical Pathology (01/24/2024 11:25 AM CDT) [...] ORDERAB LES Final Result Performing Organization Address City/State/[facility] Co de Phone Number [facility] [address] [place] [address], [facility] [address] [place] [address] * Colonoscopy (01/24/2024 11:00 AM CDT) 01/24/2024 11:0 0 AM CDT Impressions [facility] - 01/24/2024 11:38 AM CDT Post-op Diagnoses: ? - The examined portion of the ileum was normal. ? - The entire examined colon is normal. Biopsied. ? 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 rectum. Narrative [facility] - 01/24/2024 11:38 AM CDT Gonda 9 [...] preparation was ? evaluated using the BBPS ([place] Bowel Preparation Scale) with scores ? of: [...] M.D. GI PROCEDURE ORDERABLES Fin al Result [facility] documented in this encounter Visit Diagnoses Diagnosis Diarrhea documented in this encounter Administered Medications Inactive Administered Medications - up to 3 most recent administrations Medication Order MAR Action Action Date Dose Rate Site fentaNYL injection (Sublimaze) intravenous, As needed, Starting on Tue01/24/24 at 1114, Intra-Op Given 01/24/2024 11:14 AM CDT 50 mcg Lactated Ringer's Continuous Infusion: Per Instructions PRN, Starting on Tue01/24/24 at 1110, Intra-Op New Bag 01/24/2024 11:10 AM CDT 125 mL/hr 125 mL/hr midazolam (PF) injection (Versed) As needed, Starting on Tue01/24/24 at 1113, Intra-Op Given 01/24/2024 11:13 AM CDT 2 mg simethicone drops As needed, Starting on Tue01/24/24 at 1122, Intra-Op Given 01/24/2024 11:22 AM CDT 1 mL Colon sodium chloride 0.9 % injection As needed, Starting on Tue01/24/24 at 1114, Intra-Op Given 01/24/2024 11:14 AM CDT 5 mL documented in this encounter Care Teams Goldsmith Apprentice Relationship Specialty Start Date End Date Matt Montemayor M.D. [address] [place] [address] PCP - General 12/11/21 documented as of this encounter
--- OUTSIDE RECORDS SUMMARY | 2024-03-31 10:40 | XMS_ITS | Encounter Summary ---
Author Organization [facility] Address [address] [place] [id number] Care Team Providers Care Auto Apprentice Mechanic Name Role Phone Matt Montemayor M.D. Primary Care Provider Reason for Visit * Reason Onset Date Comments COVID Treatment Review 02/08/2024 Encounter Details Date Type Department Care Team (Late st Contact Info) Description 02/08/2024 Nurse Triage Division of Community Internal Medicine, [facility], in [place], [place] [address] [place] [phone] Alexa Courtney, RCobyNCoby [address] [place] [phone] COVID Treatment Review Social History Tobacco Use Types Packs/Day Years Used Date Smoking Tobacco: Never Smokeless Tobacco: Never Alcohol Use Standard Drinks/Week Comments No 0 (1 standard drink = 0.6 oz pur e alcohol) occasional [facility] Utilities Answer Date Recorded In [...] often do you attend chur ch or moravian services? 1 to 4 times per year 10/11/2022 Do you belong to any clubs o r organizations such as hinduism groups, unions, fraternal or athletic groups, or [...] your living situation today? I have a [facility] place to live 01/11/2024 Education Answer Date Recorded What is the highest level of school you have completed or the highest degree you have received? 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 - 02/08/2024 4:52 PM CDT Chief Complaint / Reason for Call Patient is a 83 y.o. male calling regarding COVID Treatment Review. Assessment Concern: positive COVID test today 02/08/24. Took two, one was old and the second was new, both positive. Symptoms/description: Symptoms started yesterday 02/06. Cold symptoms present including sore throat,nagging cough. Denies breathing difficulties, chest pain. MASS: 5 CAST: 6 Patient risk level: high Calling to request: advice, information, COVID treatment Positive home COVID test entered into chart. Salazar advised the [facility] will reach out regarding the positive result and will discuss treatment options. Advised [facility] will reach out within 24-48 hours. Recommended monitoring symptoms. Encouraged call back with new, worsening, or persistent symptoms; or for new concerns or questions. Your coronavirus nasal swab has come back positive for SARS-CoV-2, the virus that causes COVID-19. COVID-19 Isolation You can return to your normal activities when both are true for at least 24 hours: Your symptoms are getting better overall, and You have not had a fever (and are not using fever-reducing medication) When you return to your normal activities, the following prevention strategies are recommended for the next 5 days: Washing or sanitizing hands often Cleaning high touch surfaces frequently Wearing a mask Physical distancing, and/or testing when gathering indoors Use air purifiers What should you tell your close contacts? Test for COVID-19 five days after the close contact exposure Monitor for symptoms Self Cares Getting plenty of rest Staying hydrated Taking over the counter medications can help you feel better. You may use acetaminophen, ibuprofen or naproxen as indicated on the label to control fever, muscle aches, headaches and sore throat. Adults may use other over the counter medications as needed for cough and congestion. Treatment options are based on a review of your documented past medical history in the [facility] medical record. If you should develop any of the following symptoms, seek emergent care: Trouble breathing Persistent pain or pressure in the chest New confusion Inability to wake or stay awake Pale, conway, or blue-colored skin, lips or nail bed, depending on your skin tone Response to Education: patient/caller able to teach back Caller agreeable to plan of care: yes documented in this encounter Plan of Treatment Upcoming Encounters Date Type Department Care Team (Late st Contact Info) Description 04/03/2024 1:00 PM CDT Office Visit Division of Community Internal Medicine, [facility], in [place] [address] [place] [address] Rena Golden APRN, C.N.P., M.S.N. [address] [place] [address] documented as of this encounter Procedures Procedure Name Priority Date/Time Associated Diagnosis Comments EXTM HOME SARS CORONAVIRUS-2 (COVID-19) ANTIGEN, V Routine 02/08/2024 documented in this encounter Results * (ABNORMAL) EXT Home SARS Coronavirus-2 (COVID-19) Antigen (02/08/2024) EXT Home SARS-CoV-2 Antigen Presumptive Positive(A) Presumptive Negative OTHER (SPECIFY IN RN CORRECTIONAL) Swab 02/08/2024 us Historical Provider LAB MICROBIOLOGY - GENERAL O RDERABLES Final Result OTHER (SPECIFY IN RN CORRECTIONAL) N/A documented in this encounter Visit Diagnoses Not on filedocumented in this encounter Additional Health Concerns Infection Onset Date Last Indicated Resolved Time COVID19 02/08/2024 02/08/2024 02/28/2024 5:55 AM CDT documented as of this encounter Care Teams Auto Apprentice Mechanic Relationship Specialty Start Date End Date Matt Montemayor M.D. [address] [place] [address] PCP - General 12/11/21 documented as of this encounter
--- OUTSIDE RECORDS SUMMARY | 2024-03-31 10:40 | XMS_ITS | Encounter Summary ---
Author Organization [facility] Address [address] [place] [address] Care Team Providers Care Black Pickler Name Role Phone Matt Montemayor M.D. Primary Care Provider Encounter Details Date Type Department Care Team (Late st Contact Info) Description 02/16/2024 Clinical Communication Division of Community Internal Medicine, [facility] in [place], [place] [address] [place] [address] Matt Montemayor M.D. [address] [place] [phone] Social History Tobacco Use Types Packs/Day Years Used Date Smoking Tobacco: Never Smokeless Tobacco: Never Alcohol Use Standard Drinks/Week Comments No 0 (1 standard drink = 0.6 oz pur e alcohol) occasional [facility] Utilities Answer Date Recorded In the past 12 months has e [employer], gas, oil, or water [employer] threatened to shut off services in your [...] often do you attend chur ch or orthodox services? 1 to 4 times per year 10/11/2022 Do you belong to any clubs o r organizations such as anabaptist groups, unions, fraternal or athletic groups, or [...] Answer Date Recorded PHQ-2 Score 0 01/11/2024 [facility] of Occupat ional Health - Occupational Stress [...] your living situation today? I have a [facility] place to live 01/11/2024 Education Answer Date Recorded What is the highest level of school you have completed or the highest degree you have received? 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 [address] [place] [address] documented as of this encounter Visit Diagnoses Not on filedocumented in this encounter Additional Health Concerns Infection Onset Date Last Indicated Resolved Time COVID19 02/08/2024 02/08/2024 02/28/2024 5:55 AM CDT documented as of this encounter Care Teams Black Pickler Relationship Specialty Start Date End Date Matt Montemayor M.D. [address] [place] [address] PCP - General 12/11/21 documented as of this encounter
[2024-03-31] MEDS: KETOROLAC 30 MG/ML inj IM (11:20)
--- NOTE | 2024-03-31 11:34 | ED_ITS ---
HPI - General Adult General Date Seen: 03/31/24 Chief complaint: Hip Injury/Pain Stated complaint: R hip pain Time Seen by Provider: 03/31/24 10:02 Source: patient Mode of arrival: ambulatory Limitations: no limitations History of Present Illness HPI narrative: Patient is an 84-year-old male presenting for right gluteal pain. He states he has been having right gluteal pain for the past 6 weeks and the pain radiates down his right leg. He is having no back pain. Has had a cortisone shot about a month ago with no improvement in his symptoms. Has been told by his providers at [facility] that they believe is muscular in nature and not within the joint. He does have follow-up with [facility] this upcoming Tuesday but states the pain is getting worse he has difficulty sleeping at night due to it. Denies any numbness. Is not aware of any injuries to the area. Is doing physical therapy also. Has been taking Tylenol ibuprofen with no improvements. No other concerns noted at this time. Is still able ambulate Related Data Home Medications ?Medication ?Instructions ?Recorded ?Confirmed atorvastatin 20 mg tablet 20 mg PO HS 02/18/22 12/27/22 omeprazole 40 mg capsule,delayed 40 mg PO DAILY 02/18/22 12/27/22 release loperamide 2 mg capsule (Imodium 2 mg PO BID PRN 12/13/22 12/27/22 A-D) losartan 100 1 tab PO DAILY 12/13/22 12/27/22 mg-hydrochlorothiazide 12.5 mg tablet Previous Rx's ?Medication ?Instructions ?Recorded prednisone 20 mg tablet 20 - 60 mg (1 - 3 x 20 mg) PO 12/27/22 DIRECTED #18 tabs ketorolac 10 mg tablet 10 mg PO Q6H PRN pain #20 tabs 03/31/24 Allergies Allergy/AdvReac Type Severity Reaction Status Date / Time Penicillins Allergy HIVES Verified 01/17/23 10:22 cephalexin AdvReac Hives Verified 01/17/23 10:22 iodine AdvReac Verified 01/17/23 10:22 Animal dander AdvReac Unknown Uncoded 01/17/23 10:22 [place] blue [facility] AdvReac Unknown Uncoded 01/17/23 10:22 Review of Systems Narrative: Pertinent systems reviewed and were negative unless stated in HPI PFSH PFSH Medical History Drug allergy, antibiotic ?Z88.1 - Allergy status to other antibiotic agents (ICD-10) Pruritic rash ?L28.2 - Other prurigo (ICD-10) Septic prepatellar bursitis of right knee ?M71.161 - Other infective bursitis, right knee (ICD-10) Asthma ?J45.909 - Unspecified asthma, uncomplicated (ICD-10) Erectile dysfunction ?N52.9 - Male erectile dysfunction, unspecified (ICD-10) Trochanteric bursitis of left hip ?M70.62 - Trochanteric bursitis, left hip (ICD-10) Gastroesophageal reflux disease ?K21.9 - Gastro-esophageal reflux disease without esophagitis (ICD-10) Prediabetes ?R73.03 - Prediabetes (ICD-10) History of prostate cancer ?Z85.46 - Personal history of malignant neoplasm of prostate (ICD-10) Vocal cord dysfunction (05/29/12) ?J38.3 - Other diseases of vocal cords (ICD-10) Malignant neoplasm of prostate ?C61 - Malignant neoplasm of prostate (ICD-10) Irritable bowel syndrome ?K58.9 - Irritable bowel syndrome without diarrhea (ICD-10) Hyperlipidemia ?E78.5 - Hyperlipidemia, unspecified (ICD-10) Essential hypertension (05/29/12) ?I10 - Essential (primary) hypertension (ICD-10) 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) ?J31.0 - Chronic rhinitis (ICD-10) ?J32.9 - Chronic sinusitis, unspecified (ICD-10) Chronic cough (05/29/12) ?R05.3 - Chronic cough (ICD-10) Adenomatous polyp of colon ?D12.6 - Benign neoplasm of colon, unspecified (ICD-10) Surgical History H/O right knee surgery (12/15/22) ?Z98.890 - Other specified postprocedural states (ICD-10) History of repair of rotator cuff ?Z98.890 - Other specified postprocedural states (ICD-10) S/P atrial septal defect closure ?Z87.74 - Personal history of (corrected) congenital malformations of heart and circulatory system (ICD-10) History of inguinal hernia repair ?Z98.890 - Other specified postprocedural states (ICD-10) ?Z87.19 - Personal history of other diseases of the digestive system (ICD-10) Family History Brother Myocardial infarction Brother Myocardial infarction Sister Asthma Social History What is your current living situation?: I presently have a place to live Problems where you live: no known problems Problems where you live details: Pt states no In the past 12 months, utilities in danger of being shut off: no In past 12 months, lack of transportation kept you from medical appts, meetings, work, or getting things needed for daily living: no In the past 12 mos, have been you worried that your food would run out before you had money to buy more?: never true In the past 12 mos, the food you bought just didn't last and you didn't have money to buy more?: never true Highest level of school completed/degree received: Bachelor's degree Smoking Status: Never smoker Do you use any of these nicotine containing products: None Second hand tobacco smoke exposure: No How often do you have a drink containing alcohol: never How often do you have six or more drinks on one occasion: Never AUDIT-C Alcohol total score: 0 Non-prescribed substance use: denies use Non-prescribed substance use details: None Caffeine: Yes (1 cup coffee a day) How often does anyone, including family, friends and others, physically hurt you : never How often does anyone, including family, friends and others, insult or talk down to you: never How often does anyone, including family, friends and others, threaten you with harm: never How often does anyone, including family, friends and others, scream or curse at you: never service: No Exam Narrative: Exam Narrative: Const: Well-nourished, Well-developed, in mild distress Eyes: PERRL, no conjunctival injection, and symmetrical lids HENT: Atraumatic external nose and ears. Moist mucous membranes. MSK:Extremities w/o deformity, Normal Active ROM, negative ipsilateral and contralateral straight leg test, tenderness noted to the right piriformis area Skin: Warm, Dry. No rashes or lesions. Neuro: Normal Muscle tone, No focal neurological deficits. Psych: Awake, Alert, & Oriented x3. Appropriate mood and affect. Const: Vital Signs, click to edit/add: Vital Signs - 24 hr 03/31/24 10:07 Temperature 96.5 F L Pulse Rate [Pulse Oximeter] 68 Respiratory Rate 18 Blood Pressure [Ri ght Upper Arm] 121/68 Pulse Oximetry 98 Oxygen Delivery Me thod Room Air Course Vital Signs Vital signs: Initial Vital Signs Temperature 96.5 F L 03/31/24 10:07 Temperature Source Temporal Artery Scan 03/31/24 10:07 Pulse Rate 68 03/31/24 10:07 Pulse Rhythm Regular 03/31/24 10:07 Respiratory Rate 18 03/31/24 10:07 Blood Pressure 121/68 03/31/24 10:07 Blood Pressure Mean 85 03/31/24 10:07 Blood Pressure Position Supine 03/31/24 10:07 Pulse Oximetry 98 03/31/24 10:07 Oxygen Delivery Method Room Air 03/31/24 10:07 Vital Signs Temperature 96.5 F L 03/31/24 10:07 Pulse Rate 68 03/31/24 10:07 Respiratory Rate 18 03/31/24 10:07 Blood Pressure 121/68 03/31/24 10:07 Pulse Oximetry 98 03/31/24 10:07 Oxygen Delivery Method Room Air 03/31/24 10:07 Temperature 96.5 F L 03/31/24 10:07 Pulse Rate 68 03/31/24 10:07 Respiratory Rate 18 03/31/24 10:07 Blood Pressure 121/68 03/31/24 10:07 Pulse Oximetry 98 03/31/24 10:07 Oxygen Delivery Method Room Air 03/31/24 10:07 Medications Administered Medications: Discontinued Medications Generic Name Dose Route Start Last Admin Trade Name Freq PRN Reason Stop Dose Admin Ketorolac Tromethamine 30 mg 03/31/24 11:02 03/31/24 11:20 Ketorolac 30 Mg/Ml Inj IM 03/31/24 11:03 30 mg ONCE ONE Administration Medical Decision Making MDM Narrative Medical decision making narrative: Patient is an 84-year-old male presenting for right gluteal pain. Concerning location of the pain I do believe this is. Former syndrome it is compressing the sciatic nerve causing the pain running down the leg. With a normal straight leg test seems unlikely to be related to herniated disc is also not having any back pain. Will do an x-ray to rule out any other concerning causes. I did try a car strain home in technique and the patient is right piriformis with some improvement in his symptoms. He was then given Toradol for his pain he is feeling better at this time. X-rays show moderate right hip joint osteoarthritis and mild left hip joint arthritis. Concerning location of his pain though this seems most likely related to the piriformis. He will be discharged he will keep his appointment for orthopedics through [facility]. Toradol prescribed Imaging Data Right hip x-ray: Attestation: I have reviewed the pertinent imaging results. Radiologist's impression: Moderate right hip joint osteoarthritis. Mild left hip joint osteoarthritis. Degenerative changes of the visualized lower lumbar spine. No visible acute fracture, dislocation or destructive process. Dictated by Sarath Finn MD @ 03/31/2024 11:59:31 AM Discharge Plan Discharge Clinical Impression: Piriformis syndrome of right side Patient Disposition: Home, Self-Care Condition: Improved Instructions: Piriformis Syndrome (ED) Additional Instructions: Continue to take Tylenol for the pain and use the Toradol. While your using Toradol do not take ibuprofen, naproxen or any other NSAID says they are the same class of drugs. Try do stretching activities as recommended per your discharge paperwork. Make sure to keep your appointment with Orthopedics. Return to emergency department for new or worsening symptoms Prescriptions: New ketorolac 10 mg tablet 10 mg PO Q6H PRN (Reason: pain) Qty: 20 0RF Rx Instructions: maximum total duration of 5 days from all oral, intranasal, or parenteral formulations No Action prednisone 20 mg tablet 20 - 60 mg PO DIRECTED Qty: 18 0RF Rx Instructions: take t tab po tid x 3 d, then 1 t bid x 3 d, then 1 t qd x 3 d omeprazole 40 mg capsule,delayed release(DR/EC) 40 mg PO DAILY atorvastatin 20 mg tablet 20 mg PO HS losartan-hydrochlorothiazide 100-12.5 mg tablet 1 tab PO DAILY loperamide [Imodium A-D] 2 mg capsule 2 mg PO BID PRN Follow Up/Referrals: Provider,Not a Local [Primary Care Provider] - Stand Alone Forms: [employer] Info Instructions
== END 2024-03-31 12:06 | disposition home or self-care (01) ==
PROVIDERS: Emergency Provider Student in an Organized Health Care Education/Training Program
DX: G57.01 Lesion of sciatic nerve, right lower limb (principal)
CPT/HCPCS: 73502; 96372; 99282; 99283; J1885

== ENCOUNTER 2025-01-02 11:07 | Outpatient (CLI) | payer MEDICARE, BC, SELFPAY | END 2025-01-02 11:08 | disposition home or self-care (01) | LOC: AMB 01-03 14:46 | PROVIDERS: Visit Provider Family Medicine | DX: S09.93XA Unspecified injury of face, initial encounter (principal); S19.9XXA Unspecified injury of neck, initial encounter; S69.92XA Unspecified injury of left wrist, hand and finger(s), initial encounter; W11.XXXA Fall on and from ladder, initial encounter; Y93.9 Activity, unspecified; Y92.008 Other place in unspecified non-institutional (private) residence as the place of occurrence of the external cause | CPT/HCPCS: A0425; A0427 ==

== ENCOUNTER 2025-03-25 08:45 | Outpatient (CLI) | payer MEDICARE, BC, SELFPAY ==
[2025-03-25 10:43] LABS: Creatinine* 0.8 mg/dL (0.5-1.5); Estimated Glomerular Filt Rate 86 ml/min
== END 2025-03-25 08:46 | disposition home or self-care (01) ==
LOC: NPINS 04-09 08:41
PROVIDERS: Visit Provider Physician Assistant
DX: I77.74 Dissection of vertebral artery (principal)
CPT/HCPCS: 82565